=== PATIENT | male | born 1950 | race African-American/Black ===

== ENCOUNTER 2017-06-13 07:34 | Inpatient (IN) ==
[~2017-06-13 07:34] MED LIST: SALINE FLUSH 10ml SYRINGE IVF PRN
[2017-06-13 08:00] VITALS: BMI 22.6
[2017-06-13] MEDS: NS 1,000 ML IV SCH ×4 (09:06→23:42)
[2017-06-13] MEDS ORDERED: HEPARIN 1,000 UNITS/500 ML PREMIX (*CVL ONLY*) IV ONE ×2 (10:45→12:49)
[2017-06-13] MEDS ORDERED: LIDOCAINE 1% (10mg/ml) 30ml SDV INJ ONE (10:45)
[2017-06-13] MEDS ORDERED: FentaNYL 100 MCG/2 ML INJECTION ONE ×2 (12:08→14:03)
[2017-06-13] MEDS ORDERED: MIDAZOLAM 2mg/2ml INJECTION ONE ×2 (12:08→14:23)
[2017-06-13] MEDS ORDERED: HEPARIN 1,000unit/ml INJECTION 10ml ONE (12:09)
[2017-06-13] MEDS ORDERED: Verapamil 5 MG/2 ML VIAL ONE (12:09)
[2017-06-13] MEDS ORDERED: NITROGLYCERIN 50MG INJECTION IV ONE (12:09)
[2017-06-13] MEDS ORDERED: ATROPINE 1 MG/ML INJECTION ONE (12:22)
[2017-06-13] MEDS ORDERED: IOHEXOL 350mg/ml 200ml BOTTLE ONE ×2 (12:25→14:34)
[2017-06-13] MEDS ORDERED: DiphenhydrAMINE 25 MG CAPSULE PO PRN (13:28)
[2017-06-13] MEDS ORDERED: RisperiDONE 0.5 MG TABLET PO PRN (13:28)
[2017-06-13] MEDS ORDERED: IBUPROFEN 200 MG TABLET PO PRN (13:28)
[2017-06-13] MEDS ORDERED: CALCIUM CARBONATE Chewable 500mg TABLET PO PRN (13:28)
[2017-06-13] MEDS ORDERED: LOPERAMIDE 2 MG CAPSULE PO PRN (13:28)
[2017-06-13] MEDS ORDERED: GUAIFENESIN/DM 5ml ORAL LIQUID PO PRN (13:28)
[2017-06-13] MEDS ORDERED: SENNA + DOCUSATE TABLET PO PRN (13:28)
[2017-06-13] MEDS ORDERED: LORazepam 0.5 MG TABLET PO PRN (13:39)
[2017-06-13] MEDS ORDERED: NITROGLYCERIN 0.4 MG SUBLINGUAL TABLET SL PRN (13:39)
[2017-06-13] MEDS ORDERED: SALINE FLUSH 10ml SYRINGE IVF PRN (13:39)
[2017-06-13] MEDS ORDERED: Bisacodyl EC TAB 5 MG TABLET PO PRN (13:39)
[2017-06-13] MEDS ORDERED: ONDANSETRON 4 MG/2 ML INJECTION IVP PRN (13:39)
[2017-06-13] MEDS ORDERED: MAG-AL + SIM ORAL LIQUID 30ml PO PRN (13:39)
[2017-06-13] MEDS ORDERED: ATROPINE 1 MG/ML INJECTION IVP PRN (13:39)
[2017-06-13] MEDS ORDERED: BISACODYL 10 MG SUPPOSITORY RECTALLY PRN (13:39)
[2017-06-13] MEDS ORDERED: METOCLOPRAMIDE 10mg/2ml INJECTION IVP PRN (13:39)
[2017-06-13] MEDS ORDERED: ACETAMINOPHEN 325 MG TABLET PO PRN (13:39)
[2017-06-13] MEDS ORDERED: MORPHINE SULFATE 4 MG SYRINGE IVP PRN ×2 (13:39)
[2017-06-13] MEDS ORDERED: PROMETHAZINE 25 MG INJECTION IVP PRN (13:39)
[2017-06-13] MEDS ORDERED: NS 1,000 ML ONE (13:55)
[2017-06-13] MEDS ORDERED: CLOPIDOGREL 75 MG TABLET ONE (14:03)
--- NOTE | 2017-06-13 16:43 | Cardiology Report ---
DATE OF PROCEDURE 06/13/2017 SURGEON Carmenza Wilson MD PROCEDURE 1. PTCA and stent placement of proximal and mid LAD. 2. Placement of temporary pacemaker via right femoral vein. 3. Conscious sedation for 1-1/2 hours. COMPLICATIONS Transient third degree AV block. Acute closure of the proximal LAD which was successfully recanalized with excellent final results. DESCRIPTION OF PROCEDURE Patient was in the cardiac cath laboratory following the diagnostic procedure performed by Dr. Ankit Wilson. He had a 6-Bur[place]ian sheath in the right femoral artery. A 6-Burundian EBU 3.5 guide was inserted in the left main and multiple attempts initially with the Runthrough then with a whisper, and then with Cartographic Designer wires were unsuccessful to cross the proximal lesion. However, this resulted into acute closure of the proximal lesion. Patient developed transient complete heart block with hypotension that resolved with atropine and intravenous fluid. Subsequent to this episode, we placed a 6-[place] sheath in the right femoral vein and advanced a temporary wire to the right ventricle which had a pacing threshold of less than 1 mV. Subsequently we directed our attention to the LAD and after multiple attempts, we were able to cross the lesion with a whisper wire and then subsequently dilated with a 2.5 and then 3.0 balloon. Proximally was heavily calcified . After multiple dilatations, we advanced a 3.0 x 38 Stu drug-eluting stent to the proximal and mid LAD and was dilated up to 16 atmospheres (4.2 mm) with excellent results. The sheaths and the temporary pacemaker were sutured in place. Patient will have permanent pacemaker implanted as previously scheduled by Dr. Ankit Wilson. RESULTS 1. Proximal LAD had 99% stenosis, mid LD had about 80-90% and both were heavily calcified. After initial failure, we were able to successfully open both vessels with excellent stenting results as noted above. 2. Transient complete heart block with successful insertion of temporary pacemaker to the right ventricle. COMMENT The procedure was quite extensive and complicated as noted above but with excellent final results. KATIANA
[2017-06-13] MEDS ORDERED: D5NS 1,000 ML IV SCH (17:00)
[2017-06-13] MEDS: ATORVASTATIN 40 MG TABLET PO SCH ×2 (21:52→22:32)
[2017-06-13] MEDS ORDERED: HEPARIN 1,000unit/ml INJECTION 10ml IVP ONE (22:00)
[2017-06-13] MEDS: DOCUSATE SODIUM 100 MG CAPSULE PO SCH (22:32)
[2017-06-13] MEDS: GABAPENTIN 300 MG CAPSULE PO SCH (22:32)
--- NOTE | 2017-06-13 22:41 | Cardiology Progress Note ---
Subjective Interval history: he was doing well post intervention No complaints no chest pain dyspnea groin or wrist pain He remains in a stable normal sinus rhythm Exam is within normal limits heart catheterization site in the right wrist and the right groin dry w/o any hematoma or bruising peripheral pulses are intact neurologically intact heart is regular rate and rhythm chest is clear Procedure report Indication preop cardiac clearance normal stress nuclear scan showed anterior wall reversible ischemia PACs required us to do a Holter monitor shows severe sinus bradycardia and junctional rhythm in the 30s up to 3 second pause. Patient is diabetic and schizophrenic very poor historian. Has been having episodes of altered consciousness attributed to narcolepsy. As soon as his guardian consented to the proceeded with the scheduling heart catheter and the pacemaker on outpatient basis. transfemoral heart catheterization by myself around noon, arterial access obtained initially through the right wrist and due to extreme tortuosity of the right subclavian/innominate artery I switched to the the right groin and TR band deployed for hemostasis from te radial ARTERY SITE. Artline in the right femoral artery obtained and left in place, at the end of diagnostic heart cath , in anticipation of PCI by Dr. Dandre Wilson. Patient did have a transient complete heart block proceeded by severe bradycardia in the 20s and a screen on the monitor with one to two to QRS complexes happened while the catheter was in the subclavian artery . as we were getting ready to administer Atropine and perform CPR , we had pt cough and he immediately went back to normal sinus rhythm and stable blood pressure and pulse . pt asymptomatic and alert ,back to his baseline ,w/o cp or dyspnea , EKG w/o ST elevation or depression and with a stable BP . as catheter wouldn't advance down The R subclavian due to extreme tortuousity and wire tracking up R carotid artery , we pulled out the catheter and switch attention to R transfemoral approach ,obtained quickly after local infitration of Lidocaine and heart cath was performed easily without complications. It showed a severe long lesion in the mid LAD without occlusive disease elsewhere the RCA or LCx. LV function was good. Aortic arch was unremarkable.normal anatomy except for tortuosity. pt remained asymptomatic w/o CP or ischemic changes on ekg and stable BP/P rate. additional fentanyl was given for comfort/back pain lying on the table . Plan a PCI by Dr. Dandre Wilson's , case discussed with him and he was in agreement. Permanent pacemaker implant is planned tomorrow it looks like we 'll have to do it on Plavix. as PCI to LAD seems more urgent. Exam Vital signs: Temperature 98.3 F 06/13/17 19:43 Pulse Rate 79 06/13/17 21:45 Respiratory Rate 19 06/13/17 21:45 Blood Pressure 143/89 H 06/13/17 07:56 Pulse Oximetry 97 06/13/17 21:53 Oxygen Delivery Method Room Air Sepsis Assessment - Evaluation Sepsis screening result: No Definite Risk Hospital Course Summary Disclaimer: The visit summary below is not to be considered part of the above Progress Note.
[2017-06-14] MEDS: NS 1,000 ML IV SCH (05:14)
[2017-06-14] MEDS: LEVOTHYROXINE 50 MCG TABLET PO SCH (05:42)
[2017-06-14] MEDS ORDERED: CEFAZOLIN 1 G INJECTION ONE (07:45)
[2017-06-14] MEDS ORDERED: FentaNYL 100 MCG/2 ML INJECTION ONE (07:45)
[2017-06-14] MEDS ORDERED: STERILE WATER FOR INJ 20ML 20 ML ONE (07:45)
[2017-06-14] MEDS ORDERED: LIDOCAINE 1% (10mg/ml) 30ml SDV INJ ONE (07:46)
[2017-06-14] MEDS ORDERED: BACITRACIN 50,000 UNIT INJECTION ONE (07:46)
[2017-06-14] MEDS ORDERED: MIDAZOLAM 2mg/2ml INJECTION ONE (07:46)
[2017-06-14] MEDS ORDERED: SALINE FLUSH 10ml SYRINGE ONE (07:46)
[2017-06-14] MEDS ORDERED: IOHEXOL 350mg/ml 200ml BOTTLE ONE (07:50)
[2017-06-14] MEDS: DOCUSATE SODIUM 100 MG CAPSULE PO SCH ×2 (10:13→20:45)
[2017-06-14] MEDS: FERROUS GLUCONATE 324 MG TABLET PO SCH (10:13)
[2017-06-14] MEDS: MULTI-VITAMIN + MINERAL TABLET PO SCH (10:14)
[2017-06-14] MEDS: VITAMIN B COMPLEX + C TABLET PO SCH (10:14)
[2017-06-14] MEDS: ASPIRIN *EC* 81 MG TABLET PO SCH (10:53)
[2017-06-14] MEDS ORDERED: SALINE FLUSH 10ml SYRINGE IVF PRN (12:18)
[2017-06-14] MEDS: CLOPIDOGREL 75 MG TABLET PO SCH (12:44)
[2017-06-14] MEDS: PALIPERIDONE 3 MG TABLET PO SCH (12:44)
--- NOTE | 2017-06-14 12:57 | XRay Report ---
Indication: post ppm PROCEDURE: XR chest 1V: Encounter: Initial Comparison: None Findings: Left dual lead cardiac pacemaker with right atrial and right ventricular leads. No evidence of lead fracture or discontinuity. No pneumothorax. Lungs are clear. Heart size and mediastinal contours are within normal limits. Chronic rotator cuff tears. Impression: Left cardiac pacemaker without evidence of immediate complication. .
[2017-06-14] MEDS ORDERED: CLOPIDOGREL 75 MG TABLET PO SCH (13:39)
[2017-06-14] MEDS: CEFAZOLIN 1 G in NS 100 ML IV SCH (17:08)
--- NOTE | 2017-06-14 17:12 | Cardiology Progress Note ---
Subjective Interval history: No complaints no chest pain dyspnea groin or wrist or groin pain trop 3 ekg A paced ischemic changes w biphasic T septal leads seen pre and post PPM appetite good alert Exam Vital signs: Temperature 98.7 F 06/14/17 12:00 Pulse Rate 88 06/14/17 16:48 Respiratory Rate 16 06/14/17 15:26 Blood Pressure 107/80 06/14/17 15:00 Pulse Oximetry 99 06/14/17 15:26 Oxygen Delivery Method Room Air - Constitutional no acute distress - Routine HEENT Exam Head: Present: normocephalic, atraumatic Eye: Present: EOMI, PERRL ENT: Present: mucous membranes moist - Routine Neck Exam Absent: JVD, lymphadenopathy, thyromegaly - Routine Respiratory Exam Present: CTA bilaterally - Routine Cardiovascular Exam Present: RRR - Routine Abdominal Exam Present: soft, normoactive bowel sounds, non distended, non tender - Routine Extremities Exam Present: pulses intact. Absent: cyanosis, clubbing, edema - Routine Skin Exam Present: intact, dry. Absent: cyanosis, erythema - Routine Neurological Exam Present: alert, oriented X3, CN II-XII intact, motor deficit - Routine Psychiatric Exam Present: normal affect Progress Note-A&P - Time Spent With Patient Total time spent is greater than 50% in coordination of care (as documented) at patient's floor/unit and/or counseling patient: greater than 35 minutes Sepsis Assessment - Evaluation Sepsis screening result: No Definite Risk Hospital Course Summary Disclaimer: The visit summary below is not to be considered part of the above Progress Note. Hospital Course: 06/14/17 17:12 acute [facility] s/p ELKE to LAD intermttent CHB s/p PPM h/o severe SB and junctional DM2 BG reordered schizophrenia incraese activity trend troponins labs and CXR ekg post PPM now start BB now PPM in place , [facility] inpatient status (last night)
[2017-06-14] MEDS: ATORVASTATIN 40 MG TABLET PO SCH (20:45)
[2017-06-14] MEDS: GABAPENTIN 300 MG CAPSULE PO SCH (20:45)
[2017-06-14] MEDS: HYDROCODONE/APAP 7.5 MG/325 MG TABLET PO PRN (20:46)
[2017-06-15] MEDS: CEFAZOLIN 1 G in NS 100 ML IV SCH ×2 (01:01→09:13)
[2017-06-15] MEDS: HYDROCODONE/APAP 7.5 MG/325 MG TABLET PO PRN (04:36)
[2017-06-15] MEDS: LEVOTHYROXINE 50 MCG TABLET PO SCH (05:51)
[2017-06-15] MEDS ORDERED: LISINOPRIL 2.5 MG TABLET PO SCH (09:00)
[2017-06-15] MEDS: FERROUS GLUCONATE 324 MG TABLET PO SCH (09:06)
[2017-06-15] MEDS: PALIPERIDONE 3 MG TABLET PO SCH (09:08)
[2017-06-15] MEDS: CLOPIDOGREL 75 MG TABLET PO SCH (09:09)
[2017-06-15] MEDS: VITAMIN B COMPLEX + C TABLET PO SCH (09:10)
[2017-06-15] MEDS: MULTI-VITAMIN + MINERAL TABLET PO SCH (09:10)
[2017-06-15] MEDS: ASPIRIN *EC* 81 MG TABLET PO SCH (09:13)
--- NOTE | 2017-06-15 09:47 | Cardiac Catheterization Report ---
DATE 06/13/2017 PROCEDURE PERFORMED Transfemoral left heart catheterization and aortic arch injection LV gram Coronary angiogram Initial transradial approach with a right subclavian arteriogram and right innominate arteriogram (first and second order arteries). INDICATIONS FOR THE PROCEDURE This gentleman with schizophrenia and diabetes presents for preop clearance. He had severe bradycardia, junctional and sinus ayana at 30 beats per minute with history of episodic altered consciousness. In the past, previously diagnosed with narcolepsy. Patient had abnormal EKG, underwent pharmacological stress nuclear scan that showed reversible ischemia in the anterior wall. When we got the permit to proceed with heart catheterization and pacemaker, given by the guardian, we scheduled him for procedure. They seemed to understand the risks and benefits and signed the permit. PREMEDICATION IV Versed and IV fentanyl. NARRATIVE OF PROCEDURE The patient was brought to the cardiac cath laboratory, received IV sedation with Versed and fentanyl. The right wrist was prepped and draped in the usual sterile fashion as well as subsequently the right groin when needed. I went ahead and injected lidocaine 1% 1.5 mL in the right wrist and subsequently an additional 15-18 mL were administered in the right groin, obtaining access at a later stage of this procedure. I inserted a 6-[place] arterial sheath, Slender, in the right radial artery and sidearm was aspirated and flushed and injected with intraarterial drug combo including 5 mg of Verapamil, 300 mcg of nitroglycerin, and 3000 units of heparin. I proceeded with a [place] catheter that advanced over the wire without difficulty and reached the subclavian artery , then the wire started going up towards the carotid artery, so after multiple attempts, I pulled the catheter back slightly and injected an arteriogram that showed normal anatomy but extreme tortuosity. I was able now with this guidance to advance the catheter a little bit more distally but it stopped in the innominate artery where another arteriogram was performed. I tried now using a BBJ long wire to advance without much success although the wire appeared to advance towards the aortic arch, the catheter would not follow the tortuosity so at that point, we decided to abort the radial access and go femoral. As the catheter was in the subclavian artery, the patient suddenly went into complete heart block preceded by severe sinus bradycardia in the 20s and then there were one or two QRS complexes only on the entire screen. As we were getting ready to do CPR and ordered atropine and have epinephrine ready, the patient spontaneously bounced out of complete heart block into sinus rhythm. The patient was asked to cough. He was quite alert and appropriate, with stable vital signs now. I went ahead and under sterile technique, accessed the right common femoral artery using modified Seldinger percutaneous technique a 6-[place]ican arterial sheath was introduced in place and I then used the JR4 catheter (which was previously used for transradial access) and pigtail catheter. I also pulled the catheter back and performed an aortic arch injection to identify the anatomy. Procedure was well tolerated and there were no immediate complications. FINDINGS 1. HEMODYNAMICS: LV EDP was normal without any subvalvular or transvalvular pressure gradient present. 2. Due to borderline blood pressure, fluid bolus was administered. 3. Normal LV systolic function. Normal wall motion. 4. CORONARY ANGIOGRAM: Left main coronary artery is large and normal. The LAD is a large vessel that has very severe occlusion. The LAD exhibits a long severe stenosis up to 90-95% predominantly in the mid LAD which appears calcified. Diagonal branches are small. Left circumflex artery is a very large and nondominant vessel. It gives origin to multiple obtuse marginal branches. It appears free from any occlusive disease. The right coronary artery exhibits different areas of mild plaquing proximally and the mid as well as some mild involvement of the ostium. All areas appear mild. The mid RCA stenosis is estimated about 50% (incomplete opacification of the vessel due to semi-selective placement of the catheter). 5. Mild catheter-induced mitral regurgitation is present. 6. AORTIC ARCH INJECTION. Aortic arch in injection showed normal great three vessel take-off, normal aortic arch without aneurysm or dissection. No significant stenosis in the proximal great vessels was seen, although tortuosity was present. Right common femoral artery shows normal anatomy. Right innominate and right subclavian arteriogram show no occlusive disease. Normal branches including the vertebral and the common carotid artery on the right side were faintly visualized. IMPRESSION 1. Coronary artery disease as manifested by a 90-95% occlusion of mid LAD, about 50% stenosis of the mid RCA. 2. Normal LV systolic function. 3. Normal aortic arch with a tortuous proximal great vessels especially the innominate artery. 4. Unremarkable hemodynamics. 5. Unremarkable right subclavian and innominate arteriogram. 6. Patient had a transient complete heart block with severe brdaycardia. 7. Intravenous heparin and Plavix 600 mg p.o. for intervention by Dr. Xiomara Wilson. See separate report. 8. Patient remained stable, asymptomatic, hemodynamically and electrically stable ,PCI is under way. KATIANA
[2017-06-15 10:55] VITALS: BP 119/77
[2017-06-15] MEDS: DOCUSATE SODIUM 100 MG CAPSULE PO SCH (11:38)
--- NOTE | 2017-06-15 11:58 | XRay Report ---
INDICATION: post ppm PROCEDURE: CHEST 2-VIEWS UPRIGHT (PA & LAT) Encounter: Initial COMPARISON: June 14, 2017 Findings: Left pacemaker is unchanged in appearance. The lungs are stable in appearance without new focal airspace consolidation. There is no pleural effusion or pneumothorax. The heart size, pulmonary vascularity and mediastinal contours are unchanged. IMPRESSION: Stable appearance of the left pacemaker. .
--- NOTE | 2017-06-15 12:02 | Discharge Instructions ---
Discharge Plan - Med Rec/Dispo Referrals/Follow Up: Rose Dinero MD [Family Provider] - 1 Week Bess [place] [facility] [place] Additional Instructions: DR Rea dao in 2 wks acute TX package post pacemaker teaching and instructions Prescriptions: New Atorvastatin [Lipitor] 40 mg PO HS #30 tablet Clopidogrel [Plavix] 75 mg PO DAILY #30 tablet Lisinopril [Prinivil] 2.5 mg PO DAILY #30 tablet Minocycline [Minocin] 100 mg PO ACBID #14 capsule Acetaminophen [Tylenol] 650 mg PO Q5H PRN #20 tablet PRN Reason: Pain Aspirin *EC* [Ecotrin] 81 mg PO DAILY #100 tablet Nitroglycerin [Nitrostat] 0.4 mg SL Q5MIN3 PRN #25 tablet PRN Reason: Angina Metoprolol Tartrate [Lopressor] 25 mg PO BIDWM #60 tablet Continue Vitamin B Complex 1 cap PO DAILY #0 Risperidone (Risperdal) 0.5 mg PO Q4H PRN #0 PRN Reason: ANXIETY/AGITATION Docusate Sodium [Dok] 100 mg PO BID #0 Gabapentin 300 mg PO BID #0 Loxapine Succinate [Loxapine] 5 mg PO BID #0 diphenhydrAMINE HCl [Diphenhydramine HCl] 25 mg PO Q4H PRN #0 PRN Reason: ALLERY SYMPTOMS Guaifenesin/Dextromethorphan [Tussin Dm Liquid] 10 ml PO Q4H PRN #0 PRN Reason: COUGH Gabapentin 300 mg PO HS Ferrous Sulfate (Slow Fe) 160 mg PO DAILY #0 Paliperidone [Invega] 9 mg PO DAILY #0 Levothyroxine Sodium 50 mcg PO DAILY #0 Metformin HCl 500 mg PO DAILY #0 Multivitamin [Tab-A-Claire] 1 tab PO DAILY #0 Loperamide [Imodium] 2 - 4 mg PO PRN PRN #0 PRN Reason: DIARRHEA Calcium Carbonate 1,000 mg PO Q4H PRN #0 PRN Reason: HEARTBURN Sennosides/Docusate Sodium [Sm Senna-S Tablet] 2 tab PO BID PRN #0 PRN Reason: CONSTIPATION Magnesium Hydroxide [Milk of Magnesia] 30 ml PO DAILY PRN #0 PRN Reason: CONSTIPATION carbidopa 25 mg-levodopa 100 mg tablet 1 tab PO QID tab Discontinued Triamterene/Hydrochlorothiazid [Triamterene-Hctz 37.5-25 mg Tb] 0.5 tab PO DAILY #0 Ibuprofen 2 tab PO Q4H PRN #0 PRN Reason: PAIN Mobic (Meloxicam) 15 mg tablet 15 mg PO DAILY tab - Disposition 86 Home Health Service - Attestation Attestation Narrative: 06/15/17 12:14 [facility] with social work consult/case investigator
[2017-06-15] MEDS ORDERED: MINOCYCLINE 100 MG CAPSULE PO SCH (12:30)
[2017-06-15 14:38] VITALS: PULSE 75; RESP 26; TEMP 97.2; O2SAT 94
[2017-06-16] MEDS ORDERED: METFORMIN 500 MG TABLET PO SCH (08:00)
--- NOTE | 2017-06-16 12:58 | Discharge Summary ---
HISTORY Mr. Werner is a 66-year-old complex gentleman with history of diabetes mellitus and schizophrenia. He initially presented for preop evaluation and had an abnormal EKG and underwent stress nuclear scan which showed reversible ischemia in the anterior wall, normal LV function. He had PACs on his EKG so he underwent 24-hour Holter monitor which showed severe bradycardia, 30 beats per minute, with intermittent junctional rhythm and pauses up to 3 seconds during awake hours. Permit from legal guardian was obtained through [facility] where the patient is a resident and he presented for outpatient heart catheterization on 06/13/2017. This showed severe occlusion of the mid LAD, 90%-95%, with normal LV function. The diagnostic heart catheterization was followed by percutaneous coronary intervention by Dr. Mary Wilson after the case was discussed with him. The patient received IV heparin and p.o. Plavix. As a wire was being advanced down the LAD the patient had a transient total occlusion of the LAD associated with tachycardia and ST depression on the monitor. Flow was quickly reestablished as the wire passed the stenosis and a stent was successfully placed. The patient did have a transient complete heart block so a transfemoral transvenous temporary pacemaker was placed. The patient was taken back to CCU in stable condition. I saw him several times and he was not having any complaint of angina or dyspnea. He remained electrically and hemodynamically stable and remained on bed rest with both arterial and venous lines in place overnight. Consent was obtained for a permanent pacemaker implantation, dual chamber, which took place on 06/14/2017. A peak troponin obtained was just over 3 and was trending down and patient's EKG showed biphasic T-wave in septal lead. The patient was recovering well and was not having any angina or dyspnea and dual-chamber permanent pacemaker was performed without any complications. The patient was observed in CCU. By this time he was made inpatient. Again, on laboratory obtained the following morning the patient remained clinically, electrically and hemodynamically stable. He was ambulatory with assistance. His radial and femoral heart catheterization sites looked excellent. His pacemaker site looked excellent. No drainage or redness. Peripheral pulses were normal. The rest of the examination was unremarkable. PHYSICAL EXAM VITAL SIGNS: Vital signs were stable. Blood pressure 1-teens/60s on acute NC medications. HEART: Regular rate and rhythm. Chest is clear. No JVD. ABDOMEN: Soft, nontender, nondistended. Normoactive bowel sounds. EXTREMITIES: Lower extremities without pitting edema. Peripheral pulses are intact. NEUROLOGIC: Affect is abnormal with poor eye contact and flat affect but this is baseline for this patient. As a matter of fact, he is more interactive than he was when initially seen in the office. On the following day, 06/15/2017, pacemaker electronic parameters were normal. EKG showed atrial-paced rhythm. There was a recorded episode of atrial fibrillation with a heart rate in the 1-teens noted on 06/14/2017 on pacemaker interrogation that spontaneously resolved. The patient was just started on beta blockers and he was already on dual antiplatelet therapy. The risk of adding anticoagulant therapy outweighs the benefit and we are going to simply see if the atrial fibrillation is going to recur in the future to revisit this strategy. Again, chest x-ray showed normal dual-chamber pacemaker position. Although the patient seemed to have pulled back slightly on the pacemaker slack there were no pacemaker-related complications. Laboratory was all stable with only a slight drop of hemoglobin in the range of 1 gram. Chemistries were fine. His Metformin was to be restarted. Accu-Cheks have been checked in the hospital. The patient was ambulatory at time of discharge and at baseline. Discussed with Case Management to ensure adequate support when he goes to [facility] with home healthcare, etc. PROCEDURES PERFORMED 1. Transradial and transfemoral heart catheterization, coronary angiogram on followed by percutaneous coronary intervention with stent placement to the LAD (first procedure, Dr. Molina Wilson. Second procedure by Dr. Xiomara Wilson). Stent placement was complicated by transient total occlusion of the LAD which was quickly wired lesion across with successful stent placement. LV function is normal. 2. Dual-chamber permanent pacemaker implant 06/14/2017, [employer] type, by Dr. Molina Wilson, for both irreversible symptomatic SA node dysfunction as well as intermittent complete heart block, severe bradycardia. FINAL DIAGNOSES 1. Acute non-ST elevation NC (very limited with peak troponin of 3). 2. Bradycardia. 3. Intermittent complete heart block. 4. Type 2 diabetes mellitus. 5. Schizophrenia. DISCHARGE MEDICATIONS Please refer to electronic medication reconciliation form for a complete medication list. It should be noted that the patient will be on lifelong aspirin , at least one year of Plavix 75 mg daily, Lipitor, metoprolol 25 mg b.i.d., lisinopril 2.5 mg daily (with monitoring of blood pressure recommended), a seven -day course of minocycline and Tylenol p.r.n., in addition to his usual home medications including Metformin (which was restarted). DISCHARGE INSTRUCTIONS 1. Post transradial and transfemoral heart catheterization restrictions were provided as in EMR. 2. Post permanent pacemaker care and restriction/infection was provided (see electronic discharge summary). 3. Follow up with Dr. Rose Dinero in one week. 4. Follow up with Dr. Molina Wilson in two weeks. [facility]
== END 2017-06-15 15:15 | disposition home or self-care (01) | DRG 243 ==
LOC: CATH 07:34 → SRG 07:35 → CCU 16:10
PROVIDERS: ADMIT Internal Medicine Cardiovascular Disease; ATTEND Internal Medicine Cardiovascular Disease

== ENCOUNTER 2017-09-10 08:49 | Inpatient (IN) ==
[2017-09-10] MEDS ORDERED: ASPIRIN 81 MG CHEWABLE TABLET PO ONE (09:11)
[2017-09-10] MEDS ORDERED: NITROGLYCERIN 0.4 MG SUBLINGUAL TABLET SL PRN (09:11)
--- NOTE | 2017-09-10 09:35 | CT Scan Report ---
EXAM: CT head/brain wo con 0926 hours COMPARISON: 08/20/2009. HISTORY: ms changes LOCATION OF DICTATION: [facility] – [place] TECHNIQUE: Without IV contrast, axial images were obtained through the brain and reviewed in brain, soft tissue, bone, and subdural windows. The current CT scan was performed using radiation dose-reduction techniques. FINDINGS: The CSF spaces are prominent likely related to atrophy in keeping with age. Periventricular deep white matter hypodensities are noted likely related to small vessel ischemic disease. The suprasellar cistern and quadrigeminal plate cisterns are intact. The head-white junctions are distinct. No sulcal effacement is identified. The basal ganglia, posterior fossa and brainstem region appear unremarkable. There is no evidence for midline shift or mass effect. The midline structures appear unremarkable. No osseous abnormalities are identified. The paranasal sinuses and mastoid air cells are clear. IMPRESSION: 1. Atrophy in keeping with age. 2. Periventricular deep white matter hypodensities are noted likely related to small vessel ischemic disease. Note: This report was generated soon after the exam was performed and is immediately available to the ordering clinician on 09/10/2017 9:31 AM. .
--- NOTE | 2017-09-10 10:03 | Emergency Department Report ---
General Adult HPI - General Chief complaint: Medical Emergency Stated complaint: unresponsive Time Seen by Provider: 09/10/17 09:11 - History of Present Illness HPI narrative: 66-year-old gentleman brought in by EMS with hypotension. Patient was found at [facility], where he is a resident. He had done his normal chores and eaten breakfast this morning. Behaving normally at that time. Then was found sitting in a chair slumped over. The pressure on left arm was 60 systolic, blood pressure on right arm was closer to 100 systolic. Pulse did not rise, but stayed in the 60s. His O2 sats were down to 70%. He initially was nonresponsive. He rapidly improved vitals and response as EMS arrived. IV fluids were started and blood pressure continued to rise to an appropriate level. He was somnolent and lethargic, but would answer questions. Staff member that is with him states that he is schizophrenic and will cycle and had behavior like this periodically, but no changes in vitals or actual mentation. No known head injury. No known infection. - Related Data Home Medications Medication Instructions Recorded Confirmed Vitamin B Complex 1 cap PO DAILY #0 03/09/12 09/10/17 Docusate Sodium [Dok] 100 mg PO BID #0 10/31/16 09/10/17 Gabapentin 300 mg PO BIDBL #0 10/31/16 09/10/17 Guaifenesin/Dextromethorphan 10 ml PO Q4H PRN #0 10/31/16 09/10/17 [Tussin Dm Liquid] Levothyroxine Sodium 50 mcg PO DAILY #0 10/31/16 09/10/17 Loperamide [Imodium] 2 mg PO QID PRN #0 10/31/16 09/10/17 Loxapine Succinate [Loxapine] 5 mg PO BID #0 10/31/16 09/10/17 Magnesium Hydroxide [Milk of 30 ml PO DAILY PRN #0 10/31/16 09/10/17 Magnesia] Metformin HCl 500 mg PO DAILY #0 10/31/16 09/10/17 Multivitamin [Tab-A-Claire] 1 tab PO DAILY #0 10/31/16 09/10/17 Paliperidone [Invega] 9 mg PO 1800 #0 10/31/16 09/10/17 Sennosides/Docusate Sodium [Sm 2 tab PO BID PRN #0 10/31/16 09/10/17 Senna-S Tablet] diphenhydrAMINE HCl 25 mg PO Q4H PRN #0 10/31/16 09/10/17 [Diphenhydramine HCl] Gabapentin 600 mg PO HS 06/13/17 09/10/17 Acetaminophen [Acetaminophen Extra 1,000 mg PO Q4H PRN 09/10/17 09/10/17 Strength] Acetaminophen [Acetaminophen Extra 1,000 mg PO TID 09/10/17 09/10/17 Strength] Calcium Carbonate [Calcium] 1,000 mg PO Q4H PRN 09/10/17 09/10/17 Carbidopa/Levodopa 1 tab PO QID/E 09/10/17 09/10/17 [Carbidopa-Levodopa 25-100 Tab] Ferrous Sulfate, Dried [Slow 160 mg PO DAILY 09/10/17 09/10/17 Release Iron] Ibuprofen 400 mg PO Q4H PRN 09/10/17 09/10/17 Mag Hydrox/Aluminum Hyd/Simeth 20 ml PO Q4H PRN 09/10/17 09/10/17 [Maalox Advanced Suspension] Meloxicam [Meloxicam] 15 mg PO DAILY 09/10/17 09/10/17 Pseudoephedrine [Sudafed] 30 mg PO BID PRN 09/10/17 09/10/17 RisperiDONE [RisperDAL] 0.5 mg PO Q4H PRN 09/10/17 09/10/17 Triamterene/Hctz 37.5/25 Tab 0.5 tab PO DAILY 09/10/17 09/10/17 [MAXZIDE-25 eqv] Previous Rx's Medication Instructions Recorded Aspirin *EC* [Ecotrin] 81 mg PO DAILY #100 tab 06/15/17 Atorvastatin [Lipitor] 40 mg PO HS #30 tab 06/15/17 Clopidogrel [Plavix] 75 mg PO DAILY #30 tab 06/15/17 Metoprolol Tartrate [Lopressor] 25 mg PO BIDWM #60 tab 06/15/17 Nitroglycerin [Nitrostat] 0.4 mg SL Q5MIN3 PRN #25 tab 06/15/17 Allergies Allergy/AdvReac Type Severity Reaction Status Date / Time No Known Allergies Allergy Verified 11/20/17 09:42 Review of Systems All systems: reviewed and negative except as stated PFSH Patient Stated Medical History Cataracts Yes Other HEENT Myopia Myocardial Infarction Yes: during pacemaker insertion Other Cardiology Yes: hyperlipidemia Diabetes Mellitus Type 1 No Diabetes Mellitus Type 2 Yes: NON-INSULIN DEPENDENT Hx Benign Prostatic Yes Hyperplasia Other Yes: OVERACTIVE BLADDER Osteoarthritis Yes Other Musculoskeletal Yes: DEGENERATIVE JOINT DISEASE Schizophrenia Yes Clinic Medical History (Last Reviewed 05/07/17 @ 10:15 by Carmina Santiago Dandre) Dementia (Chronic Medical) Diabetes (Chronic Medical) Hyperlipidemia (Chronic Medical) Schizophrenia (Chronic Medical) Tremors of nervous system (Chronic Medical) Surgical History: 1. Right knee arthroscopy and meniscectomy: 11/02/1997. 2. Cystoscopy uretheral dilation: 03/11/2002. 3. Colonoscopy: 07/28/2004 - Social History Smoking status: Never smoker Substance use type: does not use Physical Exam - Limitations Limitations: altered mental status - General General appearance: obtunded - Normal Exams: Head:: Normocephalic without trauma Cardiovascular:: Regular rate and rhythm, without murmur or gallop, Pulses 2+ all extremities, capillary refill, <2 seconds all extremities Abdomen:: Bowel sounds positive, soft, non-tender, non-distended, no hepatosplenomegaly, masses or bruits noted Musculoskeletal:: No tenderness, or deformity noted, good range of motion, all extremities Integumentary:: No rashes, hives, or bruising noted, hair and nails, without abnormality - Respiratory Respiratory exam: Present: other (mild crackles noted upper airways, but not into lower lung drake.) - Cardiovascular Cardiovascular exam: Present: regular rate, normal rhythm Course Vital Signs Temperature 97.6 F 09/10/17 08:50 Pulse Rate 74 09/10/17 08:50 Respiratory Rate 20 09/10/17 08:50 Blood Pressure 133/76 09/10/17 08:50 Pulse Oximetry 96 09/10/17 08:50 Temperature 97.6 F 09/10/17 08:50 Pulse Rate 67 09/10/17 09:57 Respiratory Rate 18 09/10/17 09:44 Blood Pressure 138/86 09/10/17 09:44 Pulse Oximetry 96 09/10/17 09:44 Disposition Prescriptions: No Action Vitamin B Complex 1 cap PO DAILY #0 Docusate Sodium [Dok] 100 mg PO BID #0 Gabapentin 300 mg PO BIDBL #0 Loxapine Succinate [Loxapine] 5 mg PO BID #0 diphenhydrAMINE HCl [Diphenhydramine HCl] 25 mg PO Q4H PRN #0 PRN Reason: ALLERY SYMPTOMS Guaifenesin/Dextromethorphan [Tussin Dm Liquid] 10 ml PO Q4H PRN #0 PRN Reason: COUGH Gabapentin 600 mg PO HS Atorvastatin [Lipitor] 40 mg PO HS #30 tab Clopidogrel [Plavix] 75 mg PO DAILY #30 tab Aspirin *EC* [Ecotrin] 81 mg PO DAILY #100 tab Nitroglycerin [Nitrostat] 0.4 mg SL Q5MIN3 PRN #25 tab PRN Reason: Angina RisperiDONE [RisperDAL] 0.5 mg PO Q4H PRN PRN Reason: Anxiety/Agitation Acetaminophen [Acetaminophen Extra Strength] 1,000 mg PO Q4H PRN PRN Reason: Pain Calcium Carbonate [Calcium] 1,000 mg PO Q4H PRN PRN Reason: Heartburn Triamterene/Hctz 37.5/25 Tab [MAXZIDE-25 eqv] 0.5 tab PO DAILY Ferrous Sulfate, Dried [Slow Release Iron] 160 mg PO DAILY Acetaminophen [Acetaminophen Extra Strength] 1,000 mg PO TID Carbidopa/Levodopa [Carbidopa-Levodopa 25-100 Tab] 1 tab PO QID/E Paliperidone [Invega] 9 mg PO 1800 #0 Levothyroxine Sodium 50 mcg PO DAILY #0 Metformin HCl 500 mg PO DAILY #0 Multivitamin [Tab-A-Claire] 1 tab PO DAILY #0 Loperamide [Imodium] 2 mg PO QID PRN #0 PRN Reason: DIARRHEA Sennosides/Docusate Sodium [Sm Senna-S Tablet] 2 tab PO BID PRN #0 PRN Reason: CONSTIPATION Magnesium Hydroxide [Milk of Magnesia] 30 ml PO DAILY PRN #0 PRN Reason: CONSTIPATION Metoprolol Tartrate [Lopressor] 25 mg PO BIDWM #60 tab Mag Hydrox/Aluminum Hyd/Simeth [Maalox Advanced Suspension] 20 ml PO Q4H PRN PRN Reason: Heartburn Ibuprofen 400 mg PO Q4H PRN PRN Reason: Pain Meloxicam [Meloxicam] 15 mg PO DAILY Pseudoephedrine [Sudafed] 30 mg PO BID PRN PRN Reason: Nasal Congestion Referrals: Rose Dinero MD [Family Provider] -
--- NOTE | 2017-09-10 10:15 | XRay Report ---
EXAM: XR chest 2V 0933 hours COMPARISON: 06/15/2017. 06/14/2017. 08/20/2009. HISTORY: confusion . FINDINGS:Pacemaker and pacer wires are in place and are stable. The heart is upper limits of normal to mildly enlarged. The pulmonary vascularity appears unremarkable. Linear opacities are seen at the lung bases likely reflecting atelectasis particularly on the left. The lungs are otherwise clear. There is no evidence for pleural effusion. There is no evidence for a pneumothorax. The right humeral head is high riding which may be related to chronic rotator cuff tear. An old fracture deformity through the surgical neck of the proximal right humerus may be present as well. IMPRESSION: 1. Left basilar atelectatic changes. 2. The heart is upper limits of normal to mildly enlarged. LOCATION OF DICTATION: [facility] [place] .
--- OUTSIDE RECORDS SUMMARY | 2017-09-10 10:54 | External Medical Summary | Referral Summary ---
:1950 Author Care Team Providers Name Role Phone Julio Cesar Blue Primary Care Physician Encounter VC Date(s): 02/04/15 - 02/04/15 [facility], [place], [address] [place] [phone]- Discharge Diagnosis: Screening for thyroid disorder Discharge Diagnosis: Diabetes mellitus without mention of complication, type II or unspecified type,not stated as uncontrolled Discharge Disposition: Home or Self Care Attending Physician: Julio Cesar Blue MD Admitting Physician: Julio Cesar Blue MD Vital Signs Most recent to oldest [Reference Range]: 1 Peripheral Pulse Rate [60-100 bpm] 80 bpm (02/04/15 10:24 AM) Blood Pressure [90-140/60-90 mmHg] 98/64 mmHg (02/04/15 10:24 AM) Problem List Condition Effective Dates Status Health Status Informant History of Overactive bladder,urinary Active frequency, and BPH w/prostatism(Confirmed) [place] toxicity(Confirmed) Active Combined hyperlipidemia(Confirmed) Active Pancytopenia related to Active medication(Confirmed) Schizophrenia(Confirmed) Active Controlled type 2 diabetes mellitus Active without complication(Confirmed) Allergies, Adverse Reactions, Alerts No Known Allergies Medications acetaminophen 500 mg oral tablet 2 tabs, Oral, q4hr, as needed for pain, # 60 tabs, 0 Refill(s) Start Date: 05/21/14 Status: OrderedCONTOUR TEST STRIPS See Instructions, TEST FASTING AND 2 HOURS AFTER SUPPER ON SUNDAY AND SUNDAY., # 100 strip, 1 Refill(s), eRx: [facility] #[id number], TEST FASTING AND 2 HOURS AFTER SUPPER ON SUNDAY AND SUNDAY. Special Instructions: TEST FASTING AND 2 HOURS AFTER SUPPER ON SUNDAY AND SUNDAY. Start Date: 10/14/14 Status: OrdereddiphenhydrAMINE 25 mg oral capsule 1 caps, Oral, q4hr, as needed for rhinitis,non-prod cough, or allergy symptoms, 0 Refill(s) Start Date: 05/21/14 Status: OrderedDOK 100 mg oral capsule 1 caps, Oral, BID, as needed for constipation, # 20 caps, 0 Refill(s) Start Date: 05/21/14 Status: OrderedFish Oil 1000 mg oral capsule 2 caps, Oral, BID, # 60 caps, 0 Refill(s) Start Date: 05/21/14 Status: Orderedibuprofen 200 mg oral tablet 2 tabs, Oral, q4hr, as needed for pain, # 120 tabs, 0 Refill(s) Start Date: 05/21/14 Status: OrderedImodium A-D 2 mg oral tablet See Instructions, as needed for loose stool, 2 tablets by mouth after first loose stool and 1 tabletafter each subsequent loose stool up to 4 per day, 0 Refill(s) Special Instructions: 2 tablets by mouth after first loose stool and 1 tablet after each subsequent loose stool up to 4 per day Start Date: 05/21/14 Status: OrderedInvega 3 mg oral tablet, extended release 3 tabs, Oral, qAM, # 30 tabs, 0 Refill(s) Start Date: 08/03/14 Status: Orderedlevothyroxine 50 mcg (0.05 mg) oral tablet 1 tabs, Oral, Daily, # 30 tabs, 0 Refill(s) Start Date: 05/21/14 Status: Orderedloxapine 10 mg oral capsule 1 caps, Oral, BID, # 180 caps, 0 Refill(s) Start Date: 02/04/15 Status: OrderedMaalox Antacid Barrier 500 mg oral tablet, chewable 2 tabs, Chewed, q4hr, 0 Refill(s) Start Date: 05/21/14 Status: OrderedmetFORMIN 500 mg oral tablet 1 tabs, Oral, Daily, # 30 tabs, 2 Refill(s), 1 tabs Oral Daily Start Date: 12/02/14 Status: OrderedMobic 15 mg oral tablet 1 tabs, Oral, Daily, # 30 tabs, 0 Refill(s), other reason (Rx) Start Date: 08/25/14 Status: Orderedoxybutynin 5 mg oral tablet 1 tabs, Oral, TID, # 30 tabs, 0 Refill(s) Start Date: 05/21/14 Status: OrderedRisperDAL 0.5 mg oral tablet 1 tabs, Oral, q4hr, as needed for agitation, Dr. Eduard Noriega, 0 Refill(s) Special Instructions: Dr. Eduard Noriega Start Date: 05/21/14 Status: OrderedSennalax-S 50 mg-8.6 mg oral tablet 2 tabs, Oral, Bedtime (once a day), # 30 tabs, 0 Refill(s) Start Date: 05/21/14 Status: Orderedsimvastatin 20 mg oral tablet 1 tabs, Oral, Bedtime (once a day), # 30 tabs, 0 Refill(s) Start Date: 05/21/14 Status: OrderedSlow Release Iron 160 mg (50 mg elemental iron) oral tablet, extended release 1 tabs, Oral, Daily, # 30 tabs, 0 Refill(s) Start Date: 05/21/14 Status: OrderedSudoGest 30 mg oral tablet 1 tabs, Oral, BID, 0 Refill(s) Start Date: 05/21/14 Status: PwlroszFqa-R-Wyvm tabs, Oral, Daily, 0 Refill(s) Start Date: 05/21/14 Status: Orderedtriamterene-hydrochlorothiazide 75 mg-50 mg oral tablet 0.5 tabs, Oral, Daily, as needed, # 30 tabs, 0 Refill(s) Special Instructions: as needed Start Date: 05/21/14 Status: OrderedTusslin oral liquid 2 mL, Oral, q8hr, 0 Refill(s) Start Date: 05/21/14 Status: OrderedVitamin B Complex 100 0 Refill(s) Start Date: 05/21/14 Status: Ordered Results Hematology Most recent to oldest [Reference Range]: 1 WBC [4.8-10.8 K/uL] 3.6 K/uL *LOW* (02/04/15 11:15 AM) RBC [4.60-6.20 M/uL] 4.37 M/uL *LOW* (02/04/15 11:15 AM) Hgb [14.0-18.0 gm/dL] 12.1 gm/dL *LOW* (4/16/15 11:15 AM) Hct [42.0-52.0 %] 36.3 % *LOW* (02/04/15 AM) MCV [82.0-99.0 fL] 83.1 fL (02/04/15 AM) MCH [27.0-32.0 pg] 27.7 pg (02/04/15 AM) MCHC [32.0-36.0 gm/dL] 33.3 gm/dL (02/04/15 AM) RDW [11.5-14.5 %] 13.9 % (02/04/15 AM) Platelet [150-400 K/uL] 276 K/uL (02/04/15 AM) MPV [8.8-14.8 fL] 9.5 fL (02/04/15 AM) Immature Granulocytes [0.0-1.0 %] 0.0 % (02/04/15) Neutrophils [51-75 %] 42 % *LOW* (02/04/15 AM) Lymphocytes [20-46 %] 38 % (02/04/1515 AM) Monocytes [4-11 %] 14 % *HI* (02/04/15 AM) Eosinophils [0-4 %] 4 % (02/04/15 AM) Basophils [0-2 %] 1 % (02/04/15 AM) Neutro Absolute [1.90-7.00 THOUS] 1.52 THOUS *LOW* (02/04/15 AM) Lymph Absolute [0.80-3.30 THOUS] 1.38 THOUS (02/04/15:15 AM) Potter Absolute [0.30-1.00 THOUS] 0.52 THOUS (02/04/15:15 AM) Eos Absolute [0.00-0.50 THOUS] 0.15 THOUS (02/04/15:15 AM) Baso Absolute [0.00-0.20 THOUS] 0.03 THOUS (02/04/15:15 AM) Chemistry Most recent to oldest [Reference Range]: 1 Sodium Lvl [135-144 mEq/L] 138 mEq/L (02/04/15:15 AM) Potassium Lvl [3.5-5.2 mEq/L] 4.6 mEq/L (02/04/1515 AM) Chloride [99-111 mEq/L] 106 mEq/L (02/04/1515 AM) CO2 [23-31 mEq/L] 23 mEq/L (02/04/1515 AM) AGAP [3-20] 9 (02/04/15 AM) BUN [8-26 mg/dL] 22 mg/dL (02/04/1515 AM) Glucose Lvl [70-99 mg/dL] 74 mg/dL (02/04/15 AM) Creatinine Lvl [0.72-1.25 mg/dL] 0.73 mg/dL (02/04/15 AM) eGFR [>60 mL/min] >60 mL/min 1 (02/04/15 AM) Calcium Lvl [8.9-10.5 mg/dL] 10.0 mg/dL (02/04/15 AM) Albumin Lvl [3.4-4.8 gm/dL] 4.3 gm/dL (02/04/15 AM) Total Protein [6.2-8.1 gm/dL] 7.4 gm/dL (02/04/1515 AM) Globulin [1.8-4.0 gm/dL] 3.1 gm/dL (02/04/15 AM) ALT [0-55 unit/L] 21 unit/L (02/04/15 AM) AST [5-34 unit/L] 18 unit/L (02/04/1515 AM) Alk Phos [40-150 unit/L] 121 unit/L (02/04/15:15 AM) Bili Total [0.2-1.2 mg/dL] 0.5 mg/dL (02/04/15:15 AM) TSH with Reflex Free T4 [0.35-4.94] 0.77 (02/04/15 11:15 AM) 1Result Comment: Multiply eGFR results by 1.21 for race.Urinalysis Most recent to oldest [Reference Range]: 1 UA Color Yellow (02/04/15 11:50 AM) UA Appear Clear (02/04/15 11:50 AM) UA pH [5.0-8.0] 6.5 (02/04/15 11:50 AM) UA Leuk Est [Negative] Negative (02/04/15 11:50 AM) UA Nitrite [Negative] Negative (02/04/15 11:50 AM) UA Protein [Negative] Negative (02/04/15 11:50 AM) UA Glucose [Negative] Negative (02/04/15 11:50 AM) UA Ketones [Negative] Negative (02/04/15 11:50 AM) UA Urobilinogen 1.0 mg/dL (02/04/15 11:50 AM) UA Bili [Negative] Negative (02/04/15 11:50 AM) UA Blood Negative (02/04/15 11:50 AM) UA Spec Grav [1.003-1.030] 1.015 (02/04/15 11:50 AM) Type Clean Catch (02/04/15 11:50 AM) Immunizations Vaccine Date Refusal Reason tetanus/diphth/pertuss (Tdap) adult/adol 03/26/08 influenza virus vaccine, inactivated 08/19/14 influenza virus vaccine, live 08/26/13 tetanus-diphth toxoids (Td) adult/adol 01/18/00 Procedures Procedure Date Related Diagnosis Body Site Prostate specific antigen 12/06/11 Prostate specific antigen 11/18/09 Prostate specific antigen 08/18/09 Prostate specific antigen 11/12/08 Prostate specific antigen 05/14/08 Prostate specific antigen 12/31/06 Prostate specific antigen 08/22/06 Prostate specific antigen 07/12/06 Prostate specific antigen 09/11/05 Social History Social History Type Response Smoking Status Never smoker Assessment and Plan No data available for this section
--- OUTSIDE RECORDS SUMMARY | 2017-09-10 10:56 | External Medical Summary | Referral Summary ---
:1950 Author Organization [facility] Address [address] [place] [address] [place] [address] Care Team Providers Name Role Phone Julio Cesar Blue Primary Care Physician Encounter VC Date(s): 08/12/15 - 08/12/15 [facility] [place] [address] [place] [phone] [place] Discharge Disposition: 01-Home or Self Care Attending Physician: Julio Cesar Blue MD Admitting Physician: Julio Cesar Blue MD Vital Signs No data available for this section Problem List Condition Effective Dates Status Health Status Informant History of Overactive bladder,urinary Active frequency, and BPH w/prostatism(Confirmed) Schizophrenia(Confirmed) Active Dementia(Confirmed) Active [place] toxicity(Confirmed) Active Combined hyperlipidemia(Confirmed) Active Pancytopenia related to Active medication(Confirmed) Controlled type 2 diabetes mellitus Active without complication(Confirmed) Allergies, Adverse Reactions, Alerts No Known Allergies Medications acetaminophen 500 mg oral tablet 2 tabs, Oral, q4hr, as needed for pain, # 60 tabs, 0 Refill(s) Start Date: 05/21/14 Status: OrderedAzo-Cranberry oral tablet 900 mg, Oral, Daily, At 7 AM, # 90 Each, 3 Refill(s), Pharmacy: [facility] Start Date: 02/16/15 Status: OrderedCONTOUR TEST STRIPS See Instructions, TEST FASTING AND 2 HOURS AFTER SUPPER ON SUNDAY AND SUNDAY., # 100 strip, 1 Refill(s), eRx: [facility] #[id number], TEST FASTING AND 2 HOURS AFTER SUPPER ON SUNDAY AND SUNDAY. Start Date: 10/14/14 Status: OrdereddiphenhydrAMINE 25 mg oral capsule 1 caps, Oral, q4hr, as needed for rhinitis,non-prod cough, or allergy symptoms, 0 Refill(s) Start Date: 05/21/14 Status: OrderedDOK 100 mg oral capsule 100 mg 1 caps, Oral, BID, as needed for constipation, # 60 caps, 2 Refill(s), Pharmacy: [facility] [place], 1 caps Oral BID,PRN:as needed for constipation Start Date: 06/25/15 Status: OrderedFish Oil 1000 mg oral capsule [...] up to 4 per day, 0 Refill(s) Start Date: 05/21/14 Status: OrderedInvega 3 mg oral tablet, extended release 9 mg 3 tabs, Oral, qPM, # 30 tabs, 0 Refill(s) Start Date: 08/03/14 Status: Orderedlevothyroxine 50 mcg (0.05 mg) oral tablet 1 tabs, Oral, Daily, # 30 tabs, 0 Refill(s) Start Date: 05/21/14 Status: Orderedloxapine 5 mg oral capsule 5 mg 1 caps, Oral, BID, 0 Refill(s) Start Date: 07/14/15 Status: OrderedMaalox Antacid Barrier 500 mg oral tablet, chewable 2 tabs, Chewed, q4hr, 0 Refill(s) Start Date: 05/21/14 Status: OrderedmetFORMIN 500 mg oral tablet 1 tabs, Oral, Daily, # 30 tabs, 2 Refill(s), 1 tabs Oral Daily Start Date: 12/02/14 Status: OrderedMobic 15 mg oral tablet 15 mg 1 tabs, Oral, Daily, # 30 tabs, 3 Refill(s), Pharmacy: [facility] [place], 1 tabs Oral Daily Start Date: 03/19/15 Status: Orderedoxybutynin 5 mg oral tablet 1 tabs, Oral, TID, # 30 tabs, 0 Refill(s) Start Date: 05/21/14 Status: Orderedpropranolol 20 mg oral tablet 20 mg 1 tabs, Oral, BID, # 60 tabs, 3 Refill(s), Pharmacy: [facility] [place], 1 tabs Oral BID Start Date: 08/06/15 Status: OrderedRisperDAL 0.5 mg oral tablet 1 tabs, Oral, q4hr, as needed for agitation, Dr. Eduard Noriega, 0 Refill(s) Start Date: 05/21/14 Status: OrderedSennalax-S 50 mg-8.6 [...] BID, 0 Refill(s) Start Date: 05/21/14 Status: MaesvtsXnt-R-Stov oral tablet 1 tabs, Oral, Daily, # 30 tabs, 2 Refill(s), Pharmacy: [facility] [place] Start Date: 06/25/15 Status: Orderedtriamterene-hydrochlorothiazide 75 mg-50 mg oral tablet 0.5 tabs, Oral, Daily, as needed, # 30 tabs, 0 Refill(s) Start Date: 05/21/14 Status: OrderedTusslin oral liquid 2 mL, Oral, q8hr, 0 Refill(s) Start Date: 05/21/14 Status: OrderedVitamin B Complex oral capsule 1 caps, Oral, Daily, # 30 caps, 3 Refill(s), Pharmacy: [facility] [place] Start Date: 06/25/15 Status: Ordered Results No data available for this section Immunizations Vaccine Date Refusal Reason tetanus/diphth/pertuss (Tdap) adult/adol 03/26/08 influenza virus vaccine, inactivated 08/12/15 influenza virus vaccine, inactivated 08/19/14 influenza virus [...]
--- OUTSIDE RECORDS SUMMARY | 2017-09-10 10:56 | External Medical Summary | Referral Summary ---
:1950 Author Organization [facility] Address [address] [place] [address] [place] [address] Care Team Providers Name Role Phone Julio Cesar Blue Primary Care Physician Encounter VC Date(s): 08/18/15 - 08/18/15 [facility] [place] [address] [place] [phone] [place] Discharge Disposition: 01-Home or Self Care Attending Physician: Julio Cesar Blue MD Admitting Physician: Julio Cesar Blue MD Vital Signs Most recent to oldest [Reference Range]: 1 Blood Pressure [90-140/60-90 mmHg] 110/68 mmHg (08/18/15 1:43 PM) Problem List Condition Effective Dates Status Health Status Informant History of Overactive bladder,urinary Active frequency, and BPH w/prostatism(Confirmed) Schizophrenia(Confirmed) Active Dementia(Confirmed) Active [place] toxicity(Confirmed) Active Combined hyperlipidemia(Confirmed) Active Pancytopenia related [...] 90 Each, 3 Refill(s), Pharmacy: [facility] [place] Start Date: 02/16/15 Status: OrderedCONTOUR TEST STRIPS See Instructions, TEST FASTING AND 2 HOURS AFTER SUPPER ON SUNDAY AND SUNDAY., # 100 strip, 1 Refill(s), eRx: [facility] #[id number], TEST FASTING AND 2 HOURS AFTER SUPPER ON SUNDAY AND SUNDAY. Start Date: 10/14/14 Status: OrdereddiphenhydrAMINE 25 mg oral capsule 1 caps, Oral, q4hr, as needed for rhinitis,non-prod cough, or allergy symptoms, 0 Refill(s) Start Date: 05/21/14 Status: OrderedDOK 100 mg oral capsule 100 mg 1 caps, Oral, BID, as needed for constipation, # 60 caps, 2 Refill(s), Pharmacy: [facility], 1 caps Oral BID,PRN:as needed for constipation Start Date: 06/25/15 Status: OrderedFish Oil 1000 mg oral capsule 2 caps, Oral, BID, # 60 caps, 0 Refill(s) Start Date: 05/21/14 Status: Orderedgabapentin 300 mg oral capsule 300 mg 1 caps, Oral, Daily, 0 Refill(s) Start Date: 08/18/15 Status: Orderedibuprofen 200 mg oral tablet 2 [...] BID, 0 Refill(s) Start Date: 05/21/14 Status: [id number]-L-Exok oral tablet 1 tabs, Oral, Daily, # [...]
--- OUTSIDE RECORDS SUMMARY | 2017-09-10 11:00 | External Medical Summary | Referral Summary ---
:1950 Author Organization [facility] Address [address] [place] [address] [place] [phone] Care Team Providers Name Role Phone Julio Cesar Blue Primary Care Physician Encounter VC Date(s): 06/12/16 - 06/12/16 [facility] [address] [place] [phone] [place] Discharge Disposition: 01-Home or Self Care Attending Physician: Julio Cesar Blue MD Admitting Physician: Julio Cesar Blue MD Vital Signs Most recent to oldest [Reference Range]: 1 Temperature Tympanic [36.6-38.1 degC] 36.0 degC *LOW* (06/12/16 10:32 AM) Peripheral Pulse Rate [60-100 bpm] 94 bpm (06/12/16 10:32 AM) Blood Pressure [90-140/60-90 mmHg] 108/60 mmHg (06/12/16 10:32 AM) SpO2 96 % (06/12/16 10:32 AM) Problem List Condition Effective Dates Status Health Status Informant History of Overactive bladder,urinary Active frequency, and BPH w/prostatism(Confirmed) Schizophrenia(Confirmed) Active Dementia(Confirmed) Active Diaz toxicity(Confirmed) Active Combined hyperlipidemia(Confirmed) Active Pancytopenia related to Active medication(Confirmed) Controlled type 2 diabetes mellitus Active without complication(Confirmed) Allergies, Adverse Reactions, Alerts No Known Allergies Medications acetaminophen 500 mg oral tablet 1,000 mg 2 tabs, Oral, q4hr, as needed for pain, not to exceed 4000 mg/day, # 100 tabs, 11 Refill(s), Pharmacy: [facility] [place], 2 tabs Oral q4hr,PRN :as needed for pain,Instr:not to exceed 4000 mg/day Start Date: 03/08/16 Status: OrderedAzo-Cranberry oral tablet 900 mg, Oral, Daily, At 7 AM, # 90 Each, 3 Refill(s), Pharmacy: [facility] [place] Start Date: 02/16/15 Status: OrderedCONTOUR TEST STRIPS See Instructions, TEST FASTING AND 2 HOURS AFTER SUPPER ON SUNDAY AND SUNDAY., # 100 strip, 1 Refill(s), eRx: [facility] #[id number], TEST FASTING AND 2 HOURS AFTER SUPPER [...] Oral BID,PRN:as needed for constipation Start Date: 05/25/16 Status: OrderedFish Oil 1000 mg oral capsule 2,000 mg 2 caps, Oral, BID, # 120 caps, 11 Refill(s), Pharmacy: [facility] [place], 2 caps Oral BID Start Date: 04/03/16 Status: Orderedgabapentin 300 mg oral capsule 300 [...] 0 Refill(s) Start Date: 05/21/14 Status: OrderedInvega 9 mg oral tablet, extended release See Instructions, One tablet by mouth once daily at 6pm for psychosis, # 30 tabs , 11 Refill(s), Pharmacy: [facility] [place], One tablet by mouth once daily at 6pm for psychosis Start Date: 03/31/16 Status: Orderedlevothyroxine 50 mcg (0.05 mg) oral tablet 1 tabs, Oral, Daily, # 30 tabs, 0 Refill(s) Start Date: 05/21/14 Status: Orderedloxapine 5 mg oral capsule 5 mg 1 caps, Oral, BID, # 60 caps, 11 Refill(s), Pharmacy: [facility] [place], 1 caps Oral BID Start Date: 03/31/16 Status: OrderedMaalox Antacid Barrier 500 mg oral [...] tabs, 0 Refill(s) Start Date: 05/21/14 Status: Orderedoxybutynin 5 mg oral tablet 5 mg 1 tabs, Oral, TID, # 270 tabs, 1 Refill(s), Pharmacy: [facility] [place], 1 tabs Oral TID Start Date: 05/09/16 Status: OrderedRisperDAL 0.5 mg oral tablet 1 [...] tabs, 0 Refill(s) Start Date: 05/21/14 Status: OrderedSinemet 25 mg-100 mg oral tablet 1 tabs, Oral, BID, # 60 tabs, 0 Refill(s), other reason (Rx) Start Date: 12/06/15 Status: OrderedSlow Release Iron 160 mg (50 mg elemental iron) oral tablet, extended release 1 tabs, Oral, Daily, # 30 tabs, 0 Refill(s) Start Date: 05/21/14 Status: OrderedSudoGest 30 mg oral tablet 1 tabs, Oral, BID, 0 Refill(s) Start Date: 05/21/14 Status: CwqrqpeLnk-F-Jrri oral tablet 1 tabs, Oral, Daily, keep aug. appt for additional refills, # 30 tabs, 0 Refill( s), Pharmacy: [facility] [place] Start Date: 05/26/16 Status: Orderedtriamterene-hydrochlorothiazide 75 mg-50 mg oral tablet 0.5 tabs, Oral, Daily, as needed, # 30 tabs, 0 Refill(s) Start Date: 05/21/14 Status: Orderedtrue plus lancets true plus lancets, See Instructions, est fasting and 2 hours after supper on sunday and sundayDX: E11.9, # 1 boxes, 5 Refill(s), Pharmacy: [facility] [place], est fasting and 2 hours aftersupper on sunday and sunday; DX: E11.9 Start Date: 02/29/16 Status: OrderedTusslin oral liquid 2 mL, Oral, q8hr, 0 Refill(s) Start Date: 05/21/14 Status: OrderedVitamin B Complex oral capsule 1 caps, Oral, Daily, # 90 caps, 3 Refill(s), Pharmacy: [facility] [place] Start Date: 09/03/15 Status: Ordered Results Chemistry Most recent to oldest [Reference Range]: 1 Sodium Lvl [135-144 mEq/L] 138 mEq/L (06/12/16 11:10 AM) Potassium Lvl [3.5-5.2 mEq/L] 4.7 mEq/L (06/12/16 11:10 AM) Chloride [99-111 mEq/L] 104 mEq/L (06/12/16 11:10 AM) CO2 [23-31 mEq/L] 28 mEq/L (06/12/16 11:10 AM) AGAP [3-20] 6 (06/12/16 11:10 AM) BUN [8-26 mg/dL] 24 mg/dL (06/12/16 11:10 AM) Glucose Lvl [70-99 mg/dL] 72 mg/dL (06/12/16 11:10 AM) Creatinine Lvl [0.72-1.25 mg/dL] 0.83 mg/dL (06/12/16 11:10 AM) eGFR [>60 mL/min] >60 mL/min 1 (06/12/16 11:10 AM) Calcium Lvl [8.9-10.5 mg/dL] 10.1 mg/dL (06/12/16 11:10 AM) Albumin Lvl [3.4-4.8 gm/dL] 4.5 gm/dL (06/12/16 11:10 AM) Total Protein [6.0-7.6 gm/dL] 7.4 gm/dL 2 (06/12/16 11:10 AM) Globulin [1.8-4.0 gm/dL] 2.9 gm/dL (06/12/16 11:10 AM) ALT [0-55 U/L] 13 U/L (06/12/16 11:10 AM) AST [5-34 U/L] 18 U/L (06/12/16 11:10 AM) Alk Phos [40-150 U/L] 125 U/L (06/12/16 11:10 AM) Bili Total [0.2-1.2 mg/dL] 0.3 mg/dL (06/12/16 11:10 AM) Hgb A1c [4.1-5.6 %] 6.8 % *HI* (06/12/16 11:10 AM) eAvg Glucose 148.5 mg/dL (06/12/16 11:10 AM) 1Result Comment: Multiply eGFR results by 1.21 for race.2Result Comment: Please note new reference range for adult Protein. Immunizations Vaccine Date Refusal Reason tetanus/diphth/pertuss (Tdap) [...] Smoking Status Never smoker Assessment and Plan Extracted from: Title: Ambulatory Patient Education Author: Julio Cesar Blue MD Date: Behavioral Health Schizophrenia Schizophrenia is a mental illness. It may cause disturbed or disorganized thinking, speech, or behavior. People with schizophrenia have problems functioning in one or more areas of life: work, school, h ome, or relationships. People with schizophrenia are at increased risk for suicide, certain chronic physical illnesses, and unhealthy behaviors, such as smoking and drug use. People who have family members with schizophrenia are at higher risk of developing the illness. Schizophrenia affects men and women equally but usually appears at an earlier age (teenage or early adult years) in men. SYMPTOMS The earliest symptoms are often subtle (prodrome) and may go unnoticed until the illness becomes more severe (first-break psychosis). Symptoms of schizophrenia may be continuous or may come and go in se verity. Episodes often are triggered by major life events, such as family stress, college, service, marriage, or child , divorce, or loss of a loved one. People with schizophreni a may see, hear, or feel things that do not exist (hallucinations). They may have false beliefs in spite of obvious proof to the contrary (delusions). Sometimes speech is incoherent or behavior is odd or withdrawn. DIAGNOSIS Schizophrenia is diagnosed through an assessment by your caregiver. Your caregiver will ask questions about your thoughts, behavior, mood, and ability to function in daily life. Your caregiver may ask q uestions about your medical history and use of alcohol or drugs, including prescription medication. Your caregiver may also order blood tests and imaging exams. Certain medical conditions and substances can cause symptoms that resemble schizophrenia. Your caregiver may refer you to a mental health specialist for evaluation. There are three major criterion for a diagnosis of schizophrenia: Two or more of the following five symptoms are present for a month or longer: Delusions. Often the delusions are that you are being attacked, harassed , cheated, persecuted or conspired against (persecutory delusions). Hallucinations. Disorganized speech that does not make sense to others. Grossly disorganized (confused or unfocused) behavior or extremely overactive or underactive motor activity (catatonia). Negative symptoms such as bland or blunted emotions (flat affect), loss of will power (avolition), and withdrawal from social contacts (social isolation ). Level of functioning in one or more major areas of life (work, school, relationships, or self-care) is markedly below the level of functioning before the onset of illness. There are continuous signs of illness (either mild symptoms or decreased level of functioning) for at least 6 months or longer. TREATMENT Schizophrenia is a long-term illness. It is best controlled with continuous treatment rather than treatment only when symptoms occur. The following treatments are used to manage schizophrenia: MedicationMedication is the most effective and important form of treatment for schizophrenia. Antipsychotic medications are usually prescribed to help manage schizophrenia. Other types of medi cation may be added to relieve any symptoms that may occur despite the use of antipsychotic medications. Counseling or talk therapyIndividual, group, or family counseling may be helpful in providing education, support, and guidance. Many people with schizophrenia also benefit from social skills and job skills (vocational) training. A combination of medication and counseling is best for managing the disorder over time. A procedure in which electricity is applied to the brain through the scalp (electroconvulsive therapy) may be used to treat catatonic schizophrenia or schizophrenia in people who cannot take or do not respond to medication and counseling. This information is not intended to replace advice given to you by your health care provider. Make sure you discuss any questions you have with your health care provider. Document Released: 10/05/2001 Document Revised: 10/29/2015 Document Reviewed: 12/31/2013 ExitCare Patient Information 2016 [employer] [facility]. No follow up information was provided. Extracted from: Title: Office Visit Note Author: Julio Cesar Blue MD Date: 06/12/16 Assessment/Plan Dementia stable. Ordered: Comprehensive Metabolic Panel Hemoglobin A1c Office Visit Level 4 Est 66347 History of Overactive bladder,urinary frequency, and BPH w/prostatism under control. Ordered: Office Visit Level 4 Est 11863 Schizophrenia Continue with the current treatment. Ordered: Comprehensive Metabolic Panel Office Visit Level 4 Est 05776
--- OUTSIDE RECORDS SUMMARY | 2017-09-10 11:01 | External Medical Summary | Referral Summary ---
:1950 Author Organization [facility] [address] [place] [id number] Care Team Providers Name Role Phone Julio Cesar Blue Primary Care Physician Encounter VC Date(s): 09/19/16 - 09/19/16 [facility] [place] [phone] Discharge Diagnosis: Dementia Discharge Diagnosis: Combined hyperlipidemia Discharge Diagnosis: History of Overactive bladder,urinary frequency, and BPH w/ prostatism Discharge Diagnosis: Schizophrenia Discharge Diagnosis: Delirium due to known physiological condition Discharge Diagnosis: Controlled type 2 diabetes mellitus without complication Discharge Disposition: 01-Home or Self Care Attending Physician: Julio Cesar Blue MD Admitting Physician: Julio Cesar Blue MD Vital Signs Most recent to oldest [Reference Range]: 1 Blood Pressure [90-140/60-90 mmHg] 104/62 mmHg (09/19/16 1:21 PM) Problem List Condition Effective Dates Status Health Status Informant History of Overactive bladder,urinary Active frequency, and BPH w/prostatism(Confirmed) Schizophrenia(Confirmed) Active Unity toxicity(Confirmed) Active Combined hyperlipidemia(Confirmed) Active Dementia(Confirmed) Active Pancytopenia related to Active medication(Confirmed) Controlled [...] exceed 4000 mg/day Start Date: 03/08/16 Status: Orderedamantadine 100 mg oral tablet 100 mg 1 tabs, Oral, BID, 0 Refill(s) Start Date: 09/19/16 Status: OrderedAzo-Cranberry oral tablet 900 mg, Oral, Daily, At 7 AM, # 90 Each, 3 Refill(s), Pharmacy: [facility] [place] Start Date: 07/04/16 Status: OrderedCONTOUR TEST STRIPS See Instructions, TEST FASTING AND 2 HOURS AFTER SUPPER ON SUNDAY AND SUNDAY., # 100 strip, 1 Refill(s), eRx: [facility] #[id number], TEST FASTING AND 2 HOURS AFTER SUPPER [...] Oral BID,PRN:as needed for constipation Start Date: 08/02/16 Status: OrderedFish Oil 1000 mg oral capsule 2,000 mg 2 caps, Oral, BID, # 120 caps, 4 Refill(s), Pharmacy: [facility] [place], 2 caps OralBID Start Date: 09/06/16 Status: Orderedgabapentin 300 mg oral capsule 300 mg 1 caps, Oral, Daily, # 30 caps, 0 Refill(s), Pharmacy: [facility] [place], 1 caps Oral Daily Start Date: 09/19/16 Status: Orderedibuprofen 200 mg oral tablet 2 [...] q4hr, 0 Refill(s) Start Date: 05/21/14 Status: OrderedMaxzide-25 oral tablet See Instructions, 1/2 tab daily., # 90 tabs, 3 Refill(s) Start Date: 09/19/16 Status: Orderedmeloxicam 15 mg oral tablet 15 mg 1 tabs, Oral, Daily, # 30 tabs, 0 Refill(s) Start Date: 09/19/16 Status: OrderedmetFORMIN 500 mg oral tablet 500 mg 1 tabs, Oral, Daily, # 30 tabs, 2 Refill(s), Pharmacy: [facility] [place], 1 tabs Oral Daily Start Date: 08/29/16 Status: Orderedoxybutynin 5 mg oral tablet 5 [...] mg-100 mg oral tablet 1 tabs, Oral, QID, # 60 tabs, 0 Refill(s), other reason (Rx) Start Date: 12/06/15 Status: OrderedSlow Release Iron 160 mg (50 mg elemental iron) oral tablet, extended release 1 tabs, Oral, Daily, # 30 tabs, 0 Refill(s) Start Date: 05/21/14 Status: OrderedSudoGest 30 mg oral tablet 1 tabs, Oral, BID, 0 Refill(s) Start Date: 05/21/14 Status: QxkjnblTgw-I-Fquh oral tablet 1 tabs, Oral, Daily, # 90 tabs, 2 Refill(s), Pharmacy: [facility] [place] Start Date: 07/04/16 Status: Orderedtriamterene-hydrochlorothiazide 75 mg-50 mg oral tablet [...] sunday and sunday; DX: E11.9 Start Date: 08/31/16 Status: OrderedTusslin oral liquid 2 mL, Oral, q8hr, 0 Refill(s) Start Date: 05/21/14 Status: OrderedVitamin B Complex oral capsule 1 caps, Oral, Daily, # 90 caps, 3 Refill(s), Pharmacy: [facility] [place] Start Date: 08/02/16 Status: Ordered Results No data available for [...] Education Author: Julio Cesar Blue MD Date: Cardiovascular Dyslipidemia Dyslipidemia is an imbalance of the lipids in your blood. Lipids are waxy, fat- like proteins that your body needs in small amounts. Dyslipidemia often involves the lipids cholesterol or triglycerides. Common forms of dyslipidemia are: High levels of bad cholesterol (LDL cholesterol). LDL cholesterol is the type of cholesterol that causes heart disease. Low levels of good cholesterol (HDL cholesterol). HDL cholesterol is the type of cholesterol that helps protect against heart disease. High levels of triglycerides. Triglycerides are a fatty substance in the blood linked to a buildup of plaque on your arteries. RISK FACTORS Increased age. Having a family history of high cholesterol. Certain medicines, including control pills, diuretics, beta- blockers, and some medicines for depression. Smoking. Eating a high-fat diet. Being overweight. Medical conditions such as diabetes, polycystic ovary syndrome, , kidney disease, and hypothyroidism. Lack of regular exercise. SIGNS AND SYMPTOMS There are no signs or symptoms with dyslipidemia. DIAGNOSIS A simple blood test called a fasting blood test can be done to determine your level of: Total cholesterol. This is the combined number of LDL cholesterol and HDL cholesterol. A healthy number is lower than 200. LDL cholesterol. The goal number for LDL cholesterol is different for each person depending on risk factors. Ask your health care provider what your LDL cholesterol number should be. HDL cholesterol. A healthy level of HDL cholesterol is 60 or higher. A number lower than 40 for men or 50 for women is a danger sign. Triglycerides. A healthy triglyceride number is less than 150. TREATMENT Dyslipidemia is a treatable condition. Your health care provider will advise you on what type of treatment is best based on your age, your test results, and current guidelines. Treatment may include: Dietary changes. A dietitian may help you create a diet that is based on your risk factors, conditions, and lifestyle. Regular exercise. This can help lower your LDL cholesterol, raise your HDL cholesterol, and help with weight management. Check with your health care provider before beginning an exercise program. Most people should participate in 30 minutes of brisk exercise 5 days a week. Quitting smoking. Medicines to lower LDL cholesterol and triglycerides. If you have high levels of triglycerides, your health care provider may: Have you stop drinking alcohol. Have you restrict your fat intake. Have you eliminate refined sugars from your diet. Treat you for other conditions, such as underactive thyroid gland ( hypothyroidism) and high blood sugar (hyperglycemia). Your health care provider will monitor your lipid levels with regular blood tests. HOME CARE INSTRUCTIONS Eat a healthy diet. Follow any diet instructions if they were given to you by your health care provider. Maintain a healthy weight. Exercise regularly based on the recommendations of your health care provider. Do not use any tobacco products, including cigarettes, chewing tobacco, or electronic cigarettes. Take medicines only as directed by your health care provider. Keep all follow-up visits as directed by your health care provider. SEEK MEDICAL CARE IF: You are having possible side effects from your medicines. This information is not intended to replace advice given to you by your health care provider. Make sure you discuss any questions you have with your health care provider. Document Released: 10/13/2014 Document Revised: 10/29/2015 Document Reviewed: 10/13/2014 [employer] Interactive Patient Education 2016 [employer]. Obstetrics and Gynecology Overactive Bladder, Adult Overactive bladder is a group of urinary symptoms. With overactive bladder, you may suddenly feel the need to pass urine (urinate) right away. After feeling this sudden urge, you might also leak urine i f you cannot get to the bathroom fast enough (urinary incontinence). These symptoms might interfere with your daily work or social activities. Overactive bladder symptoms may also wake you up at night. Overactive bladder affects the nerve signals between your bladder and your brain. Your bladder may get the signal to empty before it is full. Very sensitive muscles can also make your bladder squeeze too soon. CAUSES Many things can cause an overactive bladder. Possible causes include: Urinary tract infection. Infection of nearby tissues, such as the prostate. Prostate enlargement. Being with twins or more (multiples). Surgery on the uterus or urethra. Bladder stones, inflammation, or tumors. Drinking too much caffeine or alcohol. Certain medicines, especially those that you take to help your body get rid of extra fluid (diuretics) by increasing urine production. Muscle or nerve weakness, especially from: A spinal cord injury. Stroke. Multiple sclerosis. Parkinson disease. Diabetes. This can cause a high urine volume that fills the bladder so quickly that the normal urge to urinate is triggered very strongly. Constipation. A buildup of too much stool can put pressure on your bladder. RISK FACTORS You may be at greater risk for overactive bladder if you: Are an older adult. Smoke. Are going through menopause. Have prostate problems. Have a neurological disease, such as stroke, dementia, Parkinson disease , or multiple sclerosis (MS). Eat or drink things that irritate the bladder. These include alcohol, spicy food, and caffeine. Are overweight or obese. SIGNS AND SYMPTOMS The signs and symptoms of an overactive bladder include: Sudden, strong urges to urinate. Leaking urine. Urinating eight or more times per day. Waking up to urinate two or more times per night. DIAGNOSIS Your health care provider may suspect overactive bladder based on your symptoms. The health care provider will do a physical exam and take your medical history. Blood or urine tests may also be done. Fo r example, you might need to have a bladder function test to check how well you can hold your urine. You might also need to see a health care provider who specializes in the urinary tract (urologist). TREATMENT Treatment for overactive bladder depends on the cause of your condition and whether it is mild or severe. Certain treatments can be done in your health care provider's office or clinic. You can also make lifestyle changes at home. Options include: Behavioral Treatments Biofeedback. A specialist uses sensors to help you become aware of your body's signals. Keeping a daily log of when you need to urinate and what happens after the urge. This may help you manage your condition. Bladder training. This helps you learn to control the urge to urinate by following a schedule that directs you to urinate at regular intervals (timed voiding). At first, you might have to wait a few minutes after feeling the urge. In time, you should be able to schedule bathroom visits an hour or more apart. Kegel exercises. These are exercises to strengthen the pelvic floor muscles, which support the bladder. Toning these muscles can help you control urination, even if your bladder muscles are overa ctive. A specialist will teach you how to do these exercises correctly. They require daily practice. Weight loss. If you are obese or overweight, losing weight might relieve your symptoms of overactive bladder. Talk to your health care provider about losing weight and whether there is a specific program or method that would work best for you. Diet change. This might help if constipation is making your overactive bladder worse. Your health care provider or a dietitian can explain ways to change what you eat to ease constipation. You mi ght also need to consume less alcohol and caffeine or drink other fluids at different times of the day. Stopping smoking. Wearing pads to absorb leakage while you wait for other treatments to take effect. Physical Treatments Electrical stimulation. Electrodes send gentle pulses of electricity to strengthen the nerves or muscles that help to control the bladder. Sometimes, the electrodes are placed outside of the body . In other cases, they might be placed inside the body (implanted). This treatment can take several months to have an effect. Supportive devices. Women may need a plastic device that fits into the vagina and supports the bladder (pessary). Medicines Several medicines can help treat overactive bladder and are usually used along with other treatments. Some are injected into the muscles involved in urination. Others come in pill form. Your health care provider may prescribe: Antispasmodics. These medicines block the signals that the nerves send to the bladder. This keeps the bladder from releasing urine at the wrong time. Tricyclic antidepressants. These types of antidepressants also relax bladder muscles. Surgery You may have a device implanted to help manage the nerve signals that indicate when you need to urinate. You may have surgery to implant electrodes for electrical stimulation. Sometimes, very severe cases of overactive bladder require surgery to change the shape of the bladder. HOME CARE INSTRUCTIONS Take medicines only as directed by your health care provider. Use any implants or a pessary as directed by your health care provider. Make any diet or lifestyle changes that are recommended by your health care provider. These might include: Drinking less fluid or drinking at different times of the day. If you need to urinate often during the night, you may need to stop drinking fluids early in the evening. Cutting down on caffeine or alcohol. Both can make an overactive bladder worse. Caffeine is found in coffee, tea, and sodas. Doing Kegel exercises to strengthen muscles. Losing weight if you need to. Eating a healthy and balanced diet to prevent constipation. Keep a journal or log to track how much and when you drink and also when you feel the need to urinate. This will help your health care provider to monitor your condition. SEEK MEDICAL CARE IF: Your symptoms do not get better after treatment. Your pain and discomfort are getting worse. You have more frequent urges to urinate. You have a fever. SEEK IMMEDIATE MEDICAL CARE IF: You are not able to control your bladder at all. This information is not intended to replace advice given to you by your health care provider. Make sure you discuss any questions you have with your health care provider. Document Released: 08/04/2010 Document Revised: 10/29/2015 Document Reviewed: 03/03/2015 [employer] Interactive Patient Education 2016 [employer]. Preventive Medicine Blood Glucose Monitoring, Adult Monitoring your blood glucose (also know as blood sugar) helps you to manage your diabetes. It also helps you and your health care provider monitor your diabetes and determine how well your treatment plan is working. WHY SHOULD YOU MONITOR YOUR BLOOD GLUCOSE? It can help you understand how food, exercise, and medicine affect your blood glucose. It allows you to know what your blood glucose is at any given moment. You can quickly tell if you are having low blood glucose (hypoglycemia) or high blood glucose (hyperglycemia). It can help you and your health care provider know how to adjust your medicines. It can help you understand how to manage an illness or adjust medicine for exercise. WHEN SHOULD YOU TEST? Your health care provider will help you decide how often you should check your blood glucose. This may depend on the type of diabetes you have, your diabetes control, or the types of medicines you are t aking. Be sure to write down all of your blood glucose readings so that this information can be reviewed with your health care provider. See below for examples of testing times that your health care provider may suggest. Type 1 Diabetes Test at least 2 times per day if your diabetes is well controlled, if you are using an insulin pump, or if you perform multiple daily injections. If your diabetes is not well controlled or if you are sick, you may need to test more often. It is a good idea to also test: Before every insulin injection. Before and after exercise. Between meals and 2 hours after a meal. Occasionally between 2:00 a.m. and 3:00 a.m. Type 2 Diabetes If you are taking insulin, test at least 2 times per day. However, it is best to test before every insulin injection. If you take medicines by mouth (orally), test 2 times a day. If you are on a controlled diet, test once a day. If your diabetes is not well controlled or if you are sick, you may need to monitor more often. HOW TO MONITOR YOUR BLOOD GLUCOSE Supplies Needed Blood glucose meter. Test strips for your meter. Each meter has its own strips. You must use the strips that go with your own meter. A pricking needle (lancet). A device that holds the lancet (lancing device). A journal or log book to write down your results. Procedure Wash your hands with soap and water. Alcohol is not preferred. Prick the side of your finger (not the tip) with the lancet. Gently milk the finger until a small drop of blood appears. Follow the instructions that come with your meter for inserting the test strip, applying blood to the strip, and using your blood glucose meter. Other Areas to Get Blood for Testing Some meters allow you to use other areas of your body (other than your finger) to test your blood. These areas are called alternative sites. The most common alternative sites are: The forearm. The thigh. The back area of the lower leg. The palm of the hand. The blood flow in these areas is slower. Therefore, the blood glucose values you get may be delayed, and the numbers are different from what you would get from your fingers. Do not use alternative sites if you think you are having hypoglycemia. Your reading will not be accurate. Always use a finger if you are having hypoglycemia. Also, if you cannot feel your lows (hypoglycemia unawareness), always use your fingers for your blood glucose checks. ADDITIONAL TIPS FOR GLUCOSE MONITORING Do not reuse lancets. Always carry your supplies with you. All blood glucose meters have a 24-hour "hotline" number to call if you have questions or need help. Adjust (calibrate) your blood glucose meter with a control solution after finishing a few boxes of strips. BLOOD GLUCOSE RECORD KEEPING It is a good idea to keep a daily record or log of your blood glucose readings. Most glucose meters, if not all, keep your glucose records stored in the meter. Some meters come with the ability to downl oad your records to your home computer. Keeping a record of your blood glucose readings is especially helpful if you are wanting to look for patterns. Make notes to go along with the blood glucose readi ngs because you might forget what happened at that exact time. Keeping good records helps you and your health care provider to work together to achieve good diabetes management. This information is not intended to replace advice given to you by your health care provider. Make sure you discuss any questions you have with your health care provider. Document Released: 10/10/2004 Document Revised: 10/29/2015 Document Reviewed: 03/02/2014 [employer] Interactive Patient Education 2016 [employer] No follow up information was provided. Extracted from: Title: Office Visit Note Author: Julio Cesar Blue MD Date: 09/19/16 Assessment/Plan 1.Controlled type 2 diabetes mellitus without complication Will get lab through [facility]. Ordered: Periodic Comp Preventive Med 65+ years Est 09952 2.Combined hyperlipidemia Will continueto follow and with next lab get a Lipid profile. Ordered: Periodic Comp Preventive Med 65+ years Est 01220 3.Dementia, Unchanged. Delirium due to known physiological condition Ordered: Periodic Comp Preventive Med 65+ years Est 37830 4.History of Overactive bladder,urinary frequency, and BPH w/prostatism Problems withmedication for incontinence. Will decrease the HCTZ to a 12.5mg dose. Ordered: Periodic Comp Preventive Med 65+ years Est 45209 5.Schizophrenia Continue with current medications and follow up through [facility]. Ordered: Periodic Comp Preventive Med 65+ years Est 23291
--- OUTSIDE RECORDS SUMMARY | 2017-09-10 11:01 | External Medical Summary | Referral Summary ---
:1950 Author Organization [facility] Address [address] [place] [address] [place] [phone] Care Team Providers Name Role Phone Julio Cesar Blue Primary Care Physician Encounter VC Date(s): 03/31/15 - 03/31/15 [facility] [address] [place] [phone] [place] Discharge Disposition: 01-Home or Self Care Attending Physician: Julio Cesar Blue MD Admitting Physician: Julio Cesar Blue MD Vital Signs Most recent to oldest [Reference Range]: 1 Blood Pressure [90-140/60-90 mmHg] 102/62 mmHg (03/31/15 11:18 AM) Problem List Condition Effective Dates Status Health Status Informant History of Overactive bladder,urinary Active frequency, and BPH w/prostatism(Confirmed) Schizophrenia(Confirmed) Active Dementia(Confirmed) Active [place] toxicity(Confirmed) Active Combined hyperlipidemia(Confirmed) Active Pancytopenia related [...] 90 Each, 3 Refill(s), Pharmacy: [facility] [place] Start Date: 02/16/15 Status: OrderedCONTOUR TEST STRIPS See Instructions, TEST FASTING AND 2 HOURS AFTER SUPPER ON SUNDAY AND SUNDAY., # 100 strip, 1 Refill(s), eRx: [facility] #[id number], TEST FASTING AND 2 HOURS AFTER SUPPER ON SUNDAY AND SUNDAY. Start Date: 10/14/14 Status: OrdereddiphenhydrAMINE 25 mg oral capsule 1 caps, Oral, q4hr, as needed for rhinitis,non-prod cough, or allergy symptoms, 0 Refill(s) Start Date: 05/21/14 Status: OrderedDOK 100 mg oral capsule 100 mg 1 caps, Oral, BID, as needed for constipation, # 60 caps, 2 Refill(s), Pharmacy: [facility], 1 caps Oral BID,PRN:as needed for constipation [...] BID, 0 Refill(s) Start Date: 05/21/14 Status: XbxjljjUqx-C-Jacd oral tablet 1 tabs, Oral, Daily, # [...] [facility] [place] Start Date: 06/25/15 Status: OrderedVitamin B Complex oral capsule 1 caps, Oral, Daily, # 90 caps, 3 Refill(s), Pharmacy: [facility] [place] Start Date: 09/03/15 Status: Ordered Results No data available for [...] Education Author: Julio Cesar Blue MD Date: Dentistry Dental Care and Dentist Visits Dental care supports good overall health. Regular dental visits can also help you avoid dental pain, bleeding, infection, and other more serious health problems in the future. It is important to keep th e mouth healthy because diseases in the teeth, gums, and other oral tissues can spread to other areas of the body. Some problems, such as diabetes, heart disease, and pre-term labor have been associated with poor oral health. See your dentist every 6 months. If you experience emergency problems such as a toothache or broken tooth, go to the dentist right away. If you see your dentist regularly, you may catch problems early. It is easier to be treated for problems in the early stages. WHAT TO EXPECT AT A DENTIST VISIT Your dentist will look for many common oral health problems and recommend proper treatment. At your regular dental visit, you can expect: Gentle cleaning of the teeth and gums. This includes scraping and polishing. This helps to remove the sticky substance around the teeth and gums ( plaque ). Plaque forms in the mouth shortly after e ating. Over time, plaque hardens on the teeth as tartar. If tartar is not removed regularly, it can cause problems. Cleaning also helps remove stains. Periodic X-rays. These pictures of the teeth and supporting bone will help your dentist assess the health of your teeth. Periodic fluoride treatments. Fluoride is a natural mineral shown to help strengthen teeth. Fluoride treatmentinvolves applying a fluoride gel or varnish to the teeth. It is most commonly done in children. Examination of the mouth, tongue, jaws, teeth, and gums to look for any oral health problems, such as: Cavities (dental caries ). This is decay on the tooth caused by plaque, sugar, and acid in the mouth. It is best to catch a cavity when it is small. Inflammation of the gums caused by plaque buildup (gingivitis ). Problems with the mouth or malformed or misaligned teeth. Oral cancer or other diseases of the soft tissues or jaws. KEEP YOUR TEETH AND GUMS HEALTHY For healthy teeth and gums, follow these general guidelines as well as your dentist's specific advice: Have your teeth professionally cleaned at the dentist every 6 months. [place] twice daily with a fluoride toothpaste. Floss your teeth daily. Ask your dentist if you need fluoride supplements, treatments, or fluoride toothpaste. Eat a healthy diet. Reduce foods and drinks with added sugar. Avoid smoking. TREATMENT FOR ORAL HEALTH PROBLEMS If you have oral health problems, treatment varies depending on the conditions present in your teeth and gums. Your caregiver will most likely recommend good oral hygiene at each visit. For cavities, gingivitis, or other oral health disease, your caregiver will perform a procedure to treat the problem. This is typically done at a separate appointment. Sometimes your caregiver will refer you to another dental specialist for specific tooth problems or for surgery. SEEK IMMEDIATE DENTAL CARE IF: You have pain, bleeding, or soreness in the gum, tooth, jaw, or mouth area. A permanent tooth becomes loose or from the gum socket. You experience a blow or injury to the mouth or jaw area. Document Released: 06/19/2012 Document Revised: 12/30/2012 Document Reviewed: 06/19/2012 ExitCare Patient Information 2014 [employer]. No follow up information was provided. Extracted from: Title: Office Visit Note Author: Julio Cesar Blue MD Date: 03/31/15 Assessment/Plan Traumatic ulcer of oral mucosa Will send to the dentist and continue to follow up for healing and if not then a a biopsy. Ordered: Office Visit Level 3 Est 47483
--- OUTSIDE RECORDS SUMMARY | 2017-09-10 11:01 | External Medical Summary | Referral Summary ---
:1950 Author Organization [facility] Address [address] [place] [address] [place] [phone] Care Team Providers Name Role Phone Julio Cesar Blue Primary Care Physician Encounter VC Date(s): 08/12/15 - 08/12/15 [facility] [address] [place] [phone] [place] Discharge Disposition: 01-Home or Self Care Attending Physician: Julio Cesar Blue MD Admitting Physician: Julio Cesar Blue MD Vital Signs No data available for this section Problem List Condition Effective Dates Status Health Status Informant History of Overactive bladder,urinary Active frequency, and BPH w/prostatism(Confirmed) Schizophrenia(Confirmed) Active Dementia(Confirmed) Active [place] toxicity(Confirmed) Active Combined hyperlipidemia(Confirmed) Active Pancytopenia related [...] 90 Each, 3 Refill(s), Pharmacy: [facility] [place] Start Date: 02/16/15 Status: OrderedCONTOUR TEST STRIPS See Instructions, TEST FASTING AND 2 HOURS AFTER SUPPER ON SUNDAY AND SUNDAY., # 100 strip, 1 Refill(s), [facility]: [id number], TEST FASTING AND 2 HOURS AFTER SUPPER [...] BID, 0 Refill(s) Start Date: 05/21/14 Status: PyuiddbCdz-A-Tulh oral tablet 1 tabs, Oral, Daily, # 30 tabs, 2 Refill(s), Pharmacy: [facility] [place] Start Date: 06/25/15 Status: Orderedtriamterene-hydrochlorothiazide 75 mg-50 mg oral tablet 0.5 tabs, Oral, Daily, as needed, # 30 tabs, 0 Refill(s) Start Date: 05/21/14 Status: Orderedtrue plus lancets true plus lancets, See Instructions, est fasting and 2 hours after supper on sunday and sundayDX: E11.9, # 1 boxes, 0 Refill(s) Start Date: 02/10/16 Status: OrderedTusslin oral liquid 2 mL, Oral, [...]
--- OUTSIDE RECORDS SUMMARY | 2017-09-10 11:01 | External Medical Summary | Referral Summary ---
:1950 Author Organization [facility] Address [address] [place] [address] [place] [phone] Care Team Providers Name Role Phone Julio Cesar Blue Primary Care Physician Encounter VC Date(s): 12/06/15 - 12/06/15 [facility] [address] [place] [phone] [place] Discharge Disposition: 01-Home or Self Care Attending Physician: Julio Cesar Blue MD Admitting Physician: Julio Cesar Blue MD Vital Signs Most recent to oldest [Reference Range]: 1 Temperature Tympanic [36.6-38.1 degC] 36.8 degC (12/06/15 10:45 AM) Peripheral Pulse Rate [60-100 bpm] 87 bpm (12/06/15 10:45 AM) Respiratory Rate [14-20 br/min] 17 br/min (12/06/15 10:45 AM) Blood Pressure [90-140/60-90 mmHg] 118/70 mmHg (12/06/15 10:45 AM) SpO2 96 % (12/06/15 10:45 AM) Problem List Condition Effective Dates Status Health Status Informant History of Overactive bladder,urinary Active frequency, and BPH w/prostatism(Confirmed) Schizophrenia(Confirmed) Active Dementia(Confirmed) Active [place] toxicity(Confirmed) Active Combined hyperlipidemia(Confirmed) Active Pancytopenia related [...] 1 Refill(s), eRx: [facility] #[id number], TEST FASTING AND 2 HOURS AFTER SUPPER [...] BID, 0 Refill(s) Start Date: 05/21/14 Status: MabxzqzUkg-I-Geum oral tablet 1 tabs, Oral, Daily, # [...] [place] Start Date: 09/03/15 Status: Ordered Results Hematology Most recent to oldest [Reference Range]: 1 WBC [4.8-10.8 10*3/uL] 4.1 10*3/uL *LOW* (12/06/15 11:35 AM) RBC [4.60-6.20] 4.55 *LOW* (12/06/15 11:35 AM) Hgb [14.0-18.0 gm/dL] 12.8 gm/dL *LOW* (12/06/15 11:35 AM) Hct [42.0-52.0 %] 37.6 % *LOW* (12/06/15 11:35 AM) MCV [82.0-99.0 fL] 82.6 fL (12/06/15 11:35 AM) MCH [27.0-32.0 pg] 28.1 pg (12/06/15 11:35 AM) MCHC [32.0-36.0 gm/dL] 34.0 gm/dL (12/06/15 11:35 AM) RDW [11.5-14.5 %] 12.9 % (12/06/15 11:35 AM) Platelet [150-400 10*3/uL] 232 10*3/uL (12/06/15 11:35 AM) MPV [8.8-14.8 fL] 9.9 fL (12/06/15 11:35 AM) Immature Granulocytes [0.0-1.0 %] 0.2 % (12/06/15 11:35 AM) Neutrophils [51-75 %] 48 % *LOW* (12/06/15 11:35 AM) Lymphocytes [20-46 %] 35 % (12/06/15 11:35 AM) Monocytes [4-11 %] 14 % *HI* (12/06/15 11:35 AM) Eosinophils [0-4 %] 2 % (12/06/15:35 AM) Basophils [0-2 %] 1 % (12/06/15 11:35 AM) Neutro Absolute [1.90-7.00 10*3] 1.99 10*3 (12/06/15 11:35 AM) Lymph Absolute [0.80-3.30 10*3] 1.46 10*3 (12/06/15 11:35 AM) [place] Absolute [0.30-1.00 10*3] 0.58 10*3 (12/06/15 11:35 AM) Eos Absolute [0.00-0.50 10*3] 0.06 10*3 (12/06/15 11:35 AM) Baso Absolute [0.00-0.20 10*3] 0.02 10*3 (12/06/15 11:35 AM) Chemistry Most recent to oldest [Reference Range]: 1 Sodium Lvl [135-144 mEq/L] 138 mEq/L (12/06/15 11:35 AM) Potassium Lvl [3.5-5.2 mEq/L] 4.8 mEq/L (12/06/15:35 AM) Chloride [99-111 mEq/L] 107 mEq/L (12/06/15 11:35 AM) CO2 [23-31 mEq/L] 24 mEq/L (12/06/15:35 AM) AGAP [3-20] 7 (12/06/15:35 AM) BUN [8-26 mg/dL] 24 mg/dL (12/06/15 11:35 AM) Glucose Lvl [70-99 mg/dL] 89 mg/dL (12/06/15 11:35 AM) Creatinine Lvl [0.72-1.25 mg/dL] 0.81 mg/dL (12/06/15 11:35 AM) eGFR [>60 mL/min] >60 mL/min 1 (12/06/15:35 AM) Calcium Lvl [8.9-10.5 mg/dL] 9.7 mg/dL (12/06/15 11:35 AM) Albumin Lvl [3.4-4.8 gm/dL] 4.2 gm/dL (12/06/15 11:35 AM) Total Protein [6.2-8.1 gm/dL] 7.4 gm/dL (12/06/15 11:35 AM) Globulin [1.8-4.0 gm/dL] 3.2 gm/dL (12/06/15 11:35 AM) ALT [0-55 U/L] 20 U/L (12/06/15 11:35 AM) AST [5-34 U/L] 24 U/L (12/06/15 11:35 AM) Alk Phos [40-150 U/L] 124 U/L (12/06/15 11:35 AM) Bili Total [0.2-1.2 mg/dL] 0.4 mg/dL (12/06/15 11:35 AM) PSA (wihout Reflex Free) [0.0-4.5 ng/mL] 0.5 ng/mL 2 (12/06/15 11:35 AM) Chol [0-199 mg/dL] 133 mg/dL (12/06/15 11:35 AM) Trig [0-149 mg/dL] 72 mg/dL (12/06/15 11:35 AM) HDL [40-84 mg/dL] 51 mg/dL (12/06/15 11:35 AM) LDL [0-130 mg/dL] 68 mg/dL (12/06/15 11:35 AM) VLDL Cholesterol [0-28 mg/dL] 14 mg/dL (12/06/15 11:35 AM) Cardiac Risk [0.0-5.7] 2.6 (12/06/15 11:35 AM) TSH [0.35-4.94] 0.98 (12/06/15 11:35 AM) Hgb A1c [4.1-5.6 %] 6.8 % *HI* (12/06/15 11:35 AM) eAvg Glucose 148.5 mg/dL (12/06/15 11:35 AM) 1Result Comment: Multiply eGFR results by 1.21 for race.2Result Comment: AUA PSA Best Practice Guidelines: Age-Adjusted PSA Values by Ethnic Group Age Range Asians - Caucasians Americans 40-49 0-2.0 0-2.0 0-2.5 50-59 0-3.0 0-4.0 0-3.5 60-69 0-4.0 0-4.5 0-4.5 70-79 0-5.0 0-5.5 0-6.5 Immunizations Vaccine Date Refusal Reason tetanus/diphth/pertuss (Tdap) [...]
--- OUTSIDE RECORDS SUMMARY | 2017-09-10 11:01 | External Medical Summary | Referral Summary ---
:1950 Author Organization [facility] Address [address] [place] [address] [place] [phone] Care Team Providers Name Role Phone Julio Cesar Blue Primary Care Physician Encounter VC Date(s): 03/16/15 - 03/16/15 [facility] [address] [place] [address] [place] [phone] [place] Discharge Diagnosis: Overactive bladder Discharge Diagnosis: Screening PSA (prostate specific antigen) Discharge Disposition: 01-Home or Self Care Attending Physician: Fabricio Canchola JR, MD Admitting Physician: Fabricio Canchola JR, MD Referring Physician: Julio Cesar Blue MD Vital Signs Most recent to oldest [Reference Range]: 1 Peripheral Pulse Rate [60-100 bpm] 96 bpm (03/16/15 2:17 PM) Blood Pressure [90-140/60-90 mmHg] 108/70 mmHg (03/16/15 2:17 PM) Problem List Condition Effective Dates Status Health Status Informant History of Overactive bladder,urinary Active frequency, and BPH w/prostatism(Confirmed) Schizophrenia(Confirmed) Active Dementia(Confirmed) Active [place] toxicity(Confirmed) Active Combined hyperlipidemia(Confirmed) Active Pancytopenia related [...] 90 Each, 3 Refill(s), Pharmacy: [facility] [place] Start Date: 02/16/15 Status: OrderedCONTOUR TEST STRIPS See Instructions, TEST FASTING AND 2 HOURS AFTER SUPPER ON SUNDAY AND SUNDAY., # 100 strip, 1 Refill(s), eRx: [facility] #[id number], TEST FASTING AND 2 HOURS AFTER SUPPER [...] BID, 0 Refill(s) Start Date: 05/21/14 Status: StvmmluIzj-K-Cyfi oral tablet 1 tabs, Oral, Daily, # [...] Extracted from: Title: Ambulatory Patient Education Author: Fabricio Canchola JR, MD Date: Follow Up With: Where: When: Julio Cesar Blue [address] [place] [address] Drive; [place] [address] [employer] (1) Within 3 to 5 days Comments: Follow Up With: Where: When: Fabricio Eisenberg[address]; [place] [address] [employer] ([employer]) In 1 year 03/16/2016 Comments: Extracted from: Title: Office Visit Note Author: Fabricio Canchola JR, MD Date: 03/16/15 Assessment/Plan Overactive bladder Continue the Oxybutynin 15 mg once a day. Recheck in my office in one year or sooner if needed. PSA a week before next visit 15 minute face to face visit with 2/3 of the visit devoted to counseling. Ordered: Office Visit Level 3 Est [address]1637
--- OUTSIDE RECORDS SUMMARY | 2017-09-10 11:01 | External Medical Summary | Referral Summary ---
:1950 Author Organization [facility] Address [address] [place] [address] [place] [phone] Care Team Providers Name Role Phone Julio Cesar Blue Primary Care Physician Encounter VC Date(s): 11/10/16 - 11/10/16 [facility] [address] [place] [phone] [place] Discharge Disposition: 01-Home or Self Care Attending Physician: Julio Cesar Blue MD Admitting Physician: Julio Cesar Blue MD Vital Signs Most recent to oldest [Reference Range]: 1 Blood Pressure [90-140/60-90 mmHg] 122/62 mmHg (11/10/16 1:35 PM) Problem List Condition Effective Dates Status Health Status Informant History of Overactive bladder,urinary Active frequency, and BPH w/prostatism(Confirmed) Schizophrenia(Confirmed) Active [place] toxicity(Confirmed) Active Combined hyperlipidemia(Confirmed) Active Dementia(Confirmed) Active [...] [facility] [place] Start Date: 07/04/16 Status: OrdereddiphenhydrAMINE 25 mg oral capsule 1 caps, Oral, q4hr, as needed for rhinitis,non-prod cough, or allergy symptoms, 0 Refill(s) Start Date: 05/21/14 Status: OrderedDOK 100 mg oral capsule 100 mg 1 caps, Oral, BID, as needed for constipation, # 60 caps, 2 Refill(s), Pharmacy: [facility] [place], 1 caps Oral BID,PRN:as needed for constipation Start Date: 09/28/16 Status: OrderedFish Oil 1000 mg oral capsule 2,000 mg 2 caps, Oral, BID, # 120 caps, 4 Refill(s), Pharmacy: [facility] [place], 2 caps OralBID Start Date: 09/06/16 Status: Orderedgabapentin 300 mg oral capsule 300 mg 1 caps, Oral, Daily, # 30 caps, 5 Refill(s), Pharmacy: [facility] [place], 1 caps Oral Daily Start Date: 11/01/16 Status: Orderedibuprofen 200 mg oral tablet 2 [...] 1 tabs, Oral, Daily, # 30 tabs, 5 Refill(s), Pharmacy: [facility] [place], 1 tabs Oral Daily Start Date: 11/01/16 Status: OrderedmetFORMIN 500 mg oral tablet 500 mg 1 tabs, Oral, Daily, # 30 tabs, 2 Refill(s), Pharmacy: [facility] [place], 1 tabs Oral Daily Start Date: 08/29/16 Status: OrderedMiscellaneous DME DME Item Diabetic shoes and fitting. Dx: E11.621 and E11.51, See Instructions, # 1 Each, 0 Refill(s), Supply Start Date: 10/06/16 Status: Orderedoxybutynin 5 mg oral tablet 5 [...] BID, 0 Refill(s) Start Date: 05/21/14 Status: BurkrbbUuk-F-Zwwu oral tablet 1 tabs, Oral, Daily, # 90 tabs, 2 Refill(s), Pharmacy: [facility] [place] Start Date: 07/04/16 Status: Orderedtrue plus lancets 28G true plus lancets 28G, See Instructions, test fasting and 2 hours after supper on sunday and sunday DX: E11.9, # 1 boxes, 5 Refill(s), Pharmacy: [facility] [place], test fasting and 2 hoursafter supper on sunday and sunday; DX: E11.9 Start Date: 10/18/16 Status: OrderedTusslin oral liquid 2 mL, Oral, q8hr, 0 Refill(s) Start Date: 05/21/14 Status: OrderedVitamin B Complex oral capsule 1 caps, Oral, Daily, # 90 caps, 3 Refill(s), Pharmacy: [facility] [place] Start Date: 08/02/16 Status: Ordered Results No data available for this section Immunizations Given and Recorded Vaccine Date Status Refusal Reason tetanus/diphth/pertuss (Tdap) adult/adol 03/26/08 Recorded influenza virus vaccine, inactivated 08/12/15 Given influenza virus vaccine, inactivated 08/19/14 Recorded influenza virus vaccine, live 08/26/13 Given tetanus-diphth toxoids (Td) adult/adol 01/18/00 Recorded Procedures Procedure Date Related Diagnosis Body Site [...]
--- OUTSIDE RECORDS SUMMARY | 2017-09-10 11:01 | External Medical Summary | Referral Summary ---
:1950 Author Organization [facility] Address [address] [place] [address] [place] [phone] Care Team Providers Name Role Phone Julio Cesar Blue Primary Care Physician Encounter VC Date(s): 03/08/16 - 03/08/16 [facility] [address] [place] [phone] [place] Discharge Disposition: 01-Home or Self Care Attending Physician: Julio Cesar Blue MD Admitting Physician: Julio Cesar Blue MD Vital Signs Most recent to oldest [Reference Range]: 1 Blood Pressure [90-140/60-90 mmHg] 102/70 mmHg (03/08/16 2:04 PM) Problem List Condition Effective Dates Status Health Status Informant History of Overactive bladder,urinary Active frequency, and BPH w/prostatism(Confirmed) Schizophrenia(Confirmed) Active Dementia(Confirmed) Active [place] toxicity(Confirmed) Active Combined hyperlipidemia(Confirmed) Active Pancytopenia related [...] SUNDAY., # 100 strip, 1 Refill(s), eRx: [facility] #[id number], TEST FASTING AND 2 HOURS AFTER SUPPER [...] BID, 0 Refill(s) Start Date: 05/21/14 Status: QjtwzdwShr-P-Qigi oral tablet 1 tabs, Oral, Daily, # [...] Education Author: Julio Cesar Blue MD Date: Family Medicine How to Avoid Diabetes Problems You can do a lot to prevent or slow down diabetes problems. Following your diabetes plan and taking care of yourself can reduce your risk of serious or life-threatening complications. Below, you will fi nd certain things you can do to prevent diabetes problems. MANAGE YOUR DIABETES Follow your health care provider's, nurse educator's, and dietitian's instructions for managing your diabetes. They will teach you the basics of diabetes care. They can help answer questions you may hav e. Learn about diabetes and make healthy choices regarding eating and physical activity. Monitor your blood glucose level regularly. Your health care provider will help you decide how often to check you r blood glucose level depending on your treatment goals and how well you are meeting them. DO NOT USE NICOTINE Nicotine and diabetes are a dangerous combination. Nicotine raises your risk for diabetes problems. If you quit using nicotine, you will lower your risk for heart attack, stroke, nerve disease, and kidn ey disease. Your cholesterol and your blood pressure levels may improve. Your blood circulation will also improve. Do not use any tobacco products, including cigarettes, chewing tobacco, or electronic c igarettes. If you need help quitting, ask your health care provider. KEEP YOUR BLOOD PRESSURE UNDER CONTROL Your health care provider will determine your individualized target blood pressure based on your age, your medicines, how long you have had diabetes, and any other medical conditions you have. Blood pressure consists of two numbers. Generally, the goal is to keep your top number (systolic pressure) at or below 130, and your bottom number (diastolic pressure) at or below 80. Your health care provi ravinder may recommend a lower target blood pressure reading, if appropriate. Meal planning, medicines, and exercise can help you reach your target blood pressure. Make sure your health care provider checks your blood pressure at every visit. KEEP YOUR CHOLESTEROL UNDER CONTROL Normal cholesterol levels will help prevent heart disease and stroke. These are the biggest health problems for people with diabetes. Keeping cholesterol levels under control can also help with blood fl ow. Have your cholesterol level checked at least once a year. Your health care provider may prescribe a medicine known as a statin. Statins lower your cholesterol. If you are not taking a statin, ask yo ur health care provider if you should be. Meal planning, exercise, and medicines can help you reach your cholesterol targets. SCHEDULE AND KEEP YOUR ANNUAL PHYSICAL EXAMS AND EYE EXAMS Your health care provider will tell you how often he or she wants to see you depending on your plan of treatment. It is important that you keep these appointments so that possible problems can be identi fied early and complications can be avoided or treated. Every visit with your health care provider should include your weight, blood pressure, and an evaluation of your blood glucose control. Your hemoglobin A1c should be checked: At least twice a year if you are at your goal. Every 3 months if there are changes in treatment. If you are not meeting your goals. Your blood lipids should be checked yearly. You should also be checked yearly to see if you have protein in your urine (microalbumin). Schedule a dilated eye exam within 5 years of your diagnosis if you have type 1 diabetes, and then yearly. Schedule a dilated eye exam at diagnosis if you have type 2 diabetes, and then yearly. A ll exams thereafter can be extended to every 2 to 3 years if one or more exams have been normal. KEEP YOUR VACCINES CURRENT It is recommended that you receive a flu (influenza) vaccine every year. It is also recommended that you receive a pneumonia (pneumococcal) vaccine. If you are 65 years of age or older and have never re ceived a pneumonia vaccine, this vaccine may be given as a series of two separate shots. Ask your health care provider which additional vaccines may be recommended. TAKE CARE OF YOUR FEET Diabetes may cause you to have a poor blood supply (circulation) to your legs and feet. Because of this, the skin may be thinner, break easier, and heal more slowly. You also may have nerve damage in yo ur legs and feet, causing decreased feeling. You may not notice minor injuries to your feet that could lead to serious problems or infections. Taking care of your feet is very important. Visual foot exams are performed at every routine medical visit. The exams check for cuts, injuries, or other problems with the feet. A comprehensive foot exam should be done yearly. This includes visual inspection as well as assessing foot pulses and testing for loss of sensation. You should also do the following: Inspect your feet daily for cuts, calluses, blisters, ingrown toenails, and signs of infection, such as redness, swelling, or pus. Wash and dry your feet thoroughly, especially between the toes. Avoid soaking your feet regularly in hot water baths. Moisturize dry skin with lotion, avoiding areas between your toes. Cut toenails straight across and file the edges. Avoid shoes that do not fit well or have areas that irritate your skin. Avoid going barefooted or wearing only socks. Your feet need protection. TAKE CARE OF YOUR TEETH People with poorly controlled diabetes are more likely to have gum (periodontal ) disease. These infections make diabetes harder to control. Periodontal diseases, if left untreated, can lead to tooth los s. [place] your teeth twice a day, floss, and see your dentist for checkups and cleaning every 6 months, or 2 times a year. ASK YOUR HEALTH CARE PROVIDER ABOUT TAKING ASPIRIN Taking aspirin daily is recommended to help prevent cardiovascular disease in people with and without diabetes. Ask your health care provider if this would benefit you and what dose he or she would recommend. DRINK RESPONSIBLY Moderate amounts of alcohol (less than 1 drink per day for adult women and less than 2 drinks per day for adult men) have a minimal effect on blood glucose if ingested with food. It is important to eat food with alcohol to avoid hypoglycemia. People should avoid alcohol if they have a history of alcohol abuse or dependence, if they are , and if they have liver disease, pancreatitis, advanced neuropathy, or severe hypertriglyceridemia. LESSEN STRESS Living with diabetes can be stressful. When you are under stress, your blood glucose may be affected in two ways: Stress hormones may cause your blood glucose to rise. You may be distracted from taking good care of yourself. It is a good idea to be aware of your stress level and make changes that are necessary to help you better manage challenging situations. Support groups, planned relaxation, a hobby you enjoy, meditation , healthy relationships, and exercise all work to lower your stress level. If your efforts do not seem to be helping, get help from your health care provider or a trained mental health professional. This information is not intended to replace advice given to you by your health care provider. Make sure you discuss any questions you have with your health care provider. Document Released: 06/25/2012 Document Revised: 07/27/2015 Document Reviewed: 12/02/2014 [facility] Patient Information 2015 [email or web address]. Home Health Care Diabetes and Exercise Exercising regularly is important. It is not just about losing weight. It has many health benefits, such as: Improving your overall fitness, flexibility, and endurance. Increasing your bone density. Helping with weight control. Decreasing your body fat. Increasing your muscle strength. Reducing stress and tension. Improving your overall health. People with diabetes who exercise gain additional benefits because exercise: Reduces appetite. Improves the body's use of blood sugar (glucose). Helps lower or control blood glucose. Decreases blood pressure. Helps control blood lipids (such as cholesterol and triglycerides). Improves the body's use of the hormone insulin by: Increasing the body's insulin sensitivity. Reducing the body's insulin needs. Decreases the risk for heart disease because exercising: Lowers cholesterol and triglycerides levels. Increases the levels of good cholesterol (such as high-density lipoproteins [HDL]) in the body. Lowers blood glucose levels. YOUR ACTIVITY PLAN Choose an activity that you enjoy, and set realistic goals. To exercise safely , you should begin practicing any new physical activity slowly, and gradually increase the intensity of the exercise over ti me. Your health care provider or school vocational educator can help create an activity plan that works for you. General recommendations include: Encouraging children to engage in at least 60 minutes of physical activity each day. Stretching and performing strength training exercises, such as yoga or weight lifting, at least 2 times per week. Performing a total of at least 150 minutes of moderate-intensity exercise each week, such as brisk walking or water aerobics. Exercising at least 3 days per week, making sure you allow no more than 2 consecutive days to pass without exercising. Avoiding long periods of inactivity (90 minutes or more). When you have to spend an extended period of time sitting down, take frequent breaks to walk or stretch. RECOMMENDATIONS FOR EXERCISING WITH TYPE 1 OR TYPE 2 DIABETES Check your blood glucose before exercising. If blood glucose levels are greater than 240 mg/dL, check for urine ketones. Do not exercise if ketones are present. Avoid injecting insulin into areas of the body that are going to be exercised. For example, avoid injecting insulin into: The arms when playing tennis. The legs when jogging. Keep a record of: Food intake before and after you exercise. Expected peak times of insulin action. Blood glucose levels before and after you exercise. The type and amount of exercise you have done. Review your records with your health care provider. Your health care provider will help you to develop guidelines for adjusting food intake and insulin amounts before and after exercising. If you take insulin or oral hypoglycemic agents, watch for signs and symptoms of hypoglycemia. They include: Dizziness. Shaking. Sweating. Chills. Confusion. Drink plenty of water while you exercise to prevent dehydration or heat stroke. Body water is lost during exercise and must be replaced. Talk to your health care provider before starting an exercise program to make sure it is safe for you. Remember, almost any type of activity is better than none. This information is not intended to replace advice given to you by your health care provider. Make sure you discuss any questions you have with your health care provider. Document Released: 12/28/2004 Document Revised: 07/27/2015 Document Reviewed: 03/17/2014 [employer] Patient Information 2015 [email or web address]. No follow up information was provided. Extracted from: Title: Office Visit Note Author: Julio Cesar Blue MD Date: 03/08/16 Assessment/Plan Controlled type 2 diabetes mellitus without complication Will follow up with a HgA1C. Ordered: Periodic Comp Preventive Med 65+ years Est 97977 Schizophrenia Continue with the current medications. Ordered: Periodic Comp Preventive Med 65+ years Est 21743
--- OUTSIDE RECORDS SUMMARY | 2017-09-10 11:01 | External Medical Summary | Referral Summary ---
:1950 Author Organization [facility] Address [address] [place] [address] [place] [phone] Care Team Providers Name Role Phone Julio Cesar Blue Primary Care Physician Encounter VC Date(s): 08/18/15 - 08/18/15 [facility] [address] [place] [phone] [place] Discharge Diagnosis: Delusional disorder Discharge Diagnosis: Essential tremor Discharge Diagnosis: Peripheral neuropathy Discharge Disposition: 01-Home or Self Care Attending Physician: Julio Cesar Blue MD Admitting Physician: Julio Cesar Blue MD Vital Signs Most recent to oldest [Reference Range]: 1 Blood Pressure [90-140/60-90 mmHg] 110/68 mmHg (08/18/15 1:43 PM) Problem List Condition Effective Dates Status Health Status Informant History of Overactive bladder,urinary Active frequency, and BPH w/prostatism(Confirmed) Schizophrenia(Confirmed) Active Dementia(Confirmed) Active [place] toxicity(Confirmed) Active Combined hyperlipidemia(Confirmed) Active Pancytopenia related [...] 90 Each, 3 Refill(s), Pharmacy: [facility] Start Date: 02/16/15 Status: OrderedCONTOUR TEST STRIPS See Instructions, TEST FASTING AND 2 HOURS AFTER SUPPER ON SUNDAY AND SUNDAY., # 100 strip, 1 Refill(s), eRx: [facility] #[id number], TEST FASTING AND 2 HOURS AFTER SUPPER ON SUNDAY AND SUNDAY. Start Date: 10/14/14 Status: OrdereddiphenhydrAMINE 25 mg oral capsule 1 caps, Oral, q4hr, as needed for rhinitis,non-prod cough, or allergy symptoms, 0 Refill(s) Start Date: 05/21/14 Status: OrderedDOK 100 mg oral capsule 100 mg 1 caps, Oral, BID, as needed for constipation, # 60 caps, 2 Refill(s), Pharmacy: [facility], 1 caps Oral BID,PRN:as needed for constipation [...] BID, 0 Refill(s) Start Date: 05/21/14 Status: GfpnlkeQhz-K-Gdwv oral tablet 1 tabs, Oral, Daily, # [...] Julio Cesar Blue MD Date: Family Medicine Tremor Tremor is a rhythmic, involuntary muscular contraction characterized by oscillations (to-and-fro movements) of a part of the body. The most common of all involuntary movements, tremor can affect various body parts such as the hands, head, facial structures, vocal cords, trunk, and legs; most tremors, however, occur in the hands. Tremor often accompanies neurological disorders associated with aging. Al though the disorder is not life-threatening, it can be responsible for functional disability and social embarrassment. TREATMENT There are many types of tremor and several ways in which tremor is classified. The most common classification is by behavioral context or position. There are five categories of tremor within this classi fication: resting, postural, kinetic, task-specific, and psychogenic. Resting or static tremor occurs when the muscle is at rest, for example when the hands are lying on the lap. This type of tremor is often seen in patients with Parkinson's disease. Postural tremor occurs when a patient attempts to maintain posture, such as holding the hands outstretched. Postural tremors include physiological tremor , essential tremor, tremor with basal ganglia disease (also seen in patients with Parkinson's disease), cerebellar postural tremor, tremor with peripheral neuropathy, post-traumatic tremor, and alcoholi c tremor. Kinetic or intention (action) tremor occurs during purposeful movement, for example during qpkcew-yb-epvf testing. Task-specific tremor appears when performing goal-oriented tasks such as hand writing, speaking, or standing. This group consists of primary writing tremor, vocal tremor, and orthostatic tremor. Psychogenic tremor occurs in both older and younger patients. The mcfarlane feature of this tremor is that it dramatically lessens or disappears when the patient is distracted. PROGNOSIS There are some treatment options available for tremor; the appropriate treatment depends on accurate diagnosis of the cause. Some tremors respond to treatment of the underlying condition, for example in some cases of psychogenic tremor treating the patient's underlying mental problem may cause the tremor to disappear. Also, patients with tremor due to Parkinson's disease may be treated with Levodopa d rug therapy. Symptomatic drug therapy is available for several other tremors as well. For those cases of tremor in which there is no effective drug treatment , physical measures such as teaching the rashad ent to brace the affected limb during the tremor are sometimes useful. Surgical intervention such as thalamotomy or deep brain stimulation may be useful in certain cases. Document Released: 09/28/2003 Document Revised: 12/30/2012 Document Reviewed: 10/08/2006 ExitCare Patient Information 2015 [facility]. This information is not intended to replace advice given to you by your health care provider. Make sure you discuss any questions you have with your health care provider. No follow up information was provided. Extracted from: Title: Office Visit Note Author: Julio Cesar Blue MD Date: 08/18/15 Assessment/Plan Delusional disorder, Delusional disorders Ordered: Office Visit Level 3 Est 77970 Essential tremor, Essential tremor Keep the appointment to see the Neurologist. Ordered: Office Visit Level 3 Est 15539 Peripheral neuropathy, Polyneuropathy, unspecified Would like to increase the Neurontin to bid and also treat a UTI with Septra DS bid for 10 days. Ordered: Office Visit Level 3 Est 28867
--- OUTSIDE RECORDS SUMMARY | 2017-09-10 11:01 | External Medical Summary | Referral Summary ---
:1950 Author Organization [facility] Address [address] [place] [address] [place] [phone] Care Team Providers Name Role Phone Julio Cesar Blue Primary Care Physician Encounter VC Date(s): 07/14/15 - 07/14/15 [facility] [address] [place] [phone] [place] Discharge Disposition: 01-Home or Self Care Attending Physician: Julio Cesar Blue MD Admitting Physician: Julio Cesar Blue MD Vital Signs Most recent to oldest [Reference Range]: 1 Temperature Tympanic [36.6-38.1 degC] 36.6 degC (07/14/15 10:59 AM) Peripheral Pulse Rate [60-100 bpm] 68 bpm (07/14/15 10:59 AM) Respiratory Rate [14-20 br/min] 20 br/min (07/14/15 10:59 AM) Blood Pressure [90-140/60-90 mmHg] 120/68 mmHg (07/14/15 10:59 AM) Problem List Condition Effective Dates Status Health Status Informant History of Overactive bladder,urinary Active frequency, and BPH w/prostatism(Confirmed) Schizophrenia(Confirmed) Active Dementia(Confirmed) Active [place] toxicity(Confirmed) Active Combined hyperlipidemia(Confirmed) Active Pancytopenia related [...] 90 Each, 3 Refill(s), Pharmacy: [facility] [place] Start Date: 02/16/15 Status: OrderedCONTOUR TEST STRIPS See Instructions, TEST FASTING AND 2 HOURS AFTER SUPPER ON SUNDAY AND SUNDAY., # 100 strip, 1 Refill(s), eRx: [facility] #[id number], TEST FASTING AND 2 HOURS AFTER SUPPER [...] BID, 0 Refill(s) Start Date: 05/21/14 Status: CncifhePte-S-Lgkg oral tablet 1 tabs, Oral, Daily, # [...] occurs during purposeful movement, for example during wwrecs-up-yzju testing. Task-specific tremor appears when performing goal-oriented [...] 09/28/2003 Document Revised: 12/30/2012 Document Reviewed: 10/08/2006 [facility] Patient Information 2015 [employer] [facility]. This information is not intended to replace advice given to you by your health care provider. Make sure you discuss any questions you have with your health care provider. No follow up information was provided. Extracted from: Title: Office Visit Note Author: Julio Cesar Blue MD Date: 07/14/15 Assessment/Plan Controlled type 2 diabetes mellitus without complication Continue with the current medications. Ordered: Office Visit Level 4 Est 60584 Dementia Ordered: Office Visit Level 4 Est 99969 Pill rolling tremors Start Propranolo 10mg bid and a consult a Neurologist to rule out Parkinsons. Ordered: Office Visit Level 4 Est 85982 Schizophrenia Ordered: Office Visit Level 4 Est 21915
--- OUTSIDE RECORDS SUMMARY | 2017-09-10 11:01 | External Medical Summary | Referral Summary ---
:1950 Author Organization [facility] Address [address] [place] [address] [place] [phone] Care Team Providers Name Role Phone Julio Cesar Blue Primary Care Physician Encounter VC Date(s): 08/04/15 - 08/04/15 [facility] [address] [place] [phone] [place] Discharge Diagnosis: Essential tremor Discharge Diagnosis: Schizophrenia Discharge Disposition: 01-Home or Self Care Attending Physician: Julio Cesar Blue MD Admitting Physician: Julio Cesar Blue MD Vital Signs Most recent to oldest [Reference Range]: 1 Peripheral Pulse Rate [60-100 bpm] 56 bpm *LOW* (08/04/15 9:22 AM) Blood Pressure [90-140/60-90 mmHg] 104/68 mmHg (08/04/15 9:22 AM) Problem List Condition Effective Dates Status Health Status Informant History of Overactive bladder,urinary Active frequency, and BPH w/prostatism(Confirmed) Schizophrenia(Confirmed) Active Dementia(Confirmed) Active [place] toxicity(Confirmed) Active Combined hyperlipidemia(Confirmed) Active Pancytopenia related [...] 90 Each, 3 Refill(s), Pharmacy: [facility] [place] Start Date: 02/16/15 Status: OrderedCONTOUR TEST STRIPS See Instructions, TEST FASTING AND 2 HOURS AFTER SUPPER ON SUNDAY AND SUNDAY., # 100 strip, 1 Refill(s), eRx: [facility] #[id number], TEST FASTING AND 2 HOURS AFTER SUPPER [...] BID, 0 Refill(s) Start Date: 05/21/14 Status: JekmvwtCfy-R-Frvx oral tablet 1 tabs, Oral, Daily, # [...] occurs during purposeful movement, for example during oszkgd-qu-hmgs testing. Task-specific tremor appears when performing goal-oriented [...] Document Reviewed: 10/08/2006 ExitCare Patient Information 2015 [employer] [facility]. This information is not intended to replace advice given to you by your health care provider. Make sure you discuss any questions you have with your health care provider. No follow up information was provided. Extracted from: Title: Office Visit Note Author: Julio Cesar Blue MD Date: 08/04/15 Assessment/Plan Essential tremor Will continue with the current medications. Will start Neurontin 300mg at bedtime which may help him sleep through the night. Keep appointment with the Neurologist. Ordered: Office Visit Level 4 Est 11379 Schizophrenia Ordered: Office Visit Level 4 Est 18557
--- OUTSIDE RECORDS SUMMARY | 2017-09-10 11:02 | External Medical Summary | Continuity of Care Document ---
:1950 Author Organization [facility] Allergies Active Description Code Type Severity Reaction Onset Reported/ Identified Relationship Clinical to Patient Status Yes No Known NKMA N/A N/A 05/21/2014 Allergies Medications Problems Date Dx Attending Type Code Diagnosis Diagnosed By Coded 09/19/2016 Julio Cesar Blue Final E11.9 Type 2 diabetes F mellitus without complications 09/19/2016 Julio Cesar Blue Final E78.2 Mixed hyperlipidemia F 09/19/2016 Julio Cesar Blue Final F03.90 Unspecified dementia F without behavioral disturbance 09/19/2016 Julio Cesar Blue Final F05 Delirium due to F known physiological condition 09/19/2016 Julio Cesar Blue Final F22 Delusional disorders F 09/19/2016 Julio Cesar Blue Final N32.81 Overactive bladder F 09/19/2016 Julio Cesar Blue Final F05 Delirium due to F known physiological condition 10/06/2016 Alfonzo, Final E11.51 Type 2 diabetes Liz M mellitus with diabetic peripheral angiopathy without gangrene 10/06/2016 Alfonzo, Final E11.621 Type 2 diabetes Liz M mellitus with foot ulcer 11/11/2016 Julio Cesar Blue Final E11.9 Type 2 diabetes F mellitus without complications 11/11/2016 Julio Cesar Blue Final F05 Delirium due to F known physiological condition 11/11/2016 Julio Cesar Blue Final F22 Delusional disorders F 12/19/2016 Julio Cesar Blue Final E11.9 Type 2 diabetes F mellitus without complications 12/19/2016 Julio Cesar Blue Final E78.00 Pure F hypercholesterolemia , unspecified 12/19/2016 Julio Cesar Blue Final Z12.5 Encounter for F screening for malignant neoplasm of prostate 12/19/2016 Julio Cesar Blue Final F22 Delusional disorders F 12/19/2016 Julio Cesar Blue Final I10 Essential (primary) F hypertension Procedures Code Description Performed By Performed On 03/08/2016 07949 Office or other outpatient visit for the evaluation and management of an established patient, which requires at least 2 of these 3 mcfarlane components: A detailed history; A detailed examination; Medical d 03/08/2016 23296 Periodic comprehensive preventive medicine reevaluation and management of an individual including an age and gender appropriate history, examination, counseling/anticipatory guidance/risk factor reduc 06/12/2016 88658 Office or other outpatient visit for the evaluation and management of an established patient, which requires at least 2 of these 3 mcfarlane components: A detailed history; A detailed examination; Medical d 09/19/2016 41140 Periodic comprehensive preventive medicine reevaluation and management of an individual including an age and gender appropriate history, examination, counseling/anticipatory guidance/risk factor reduc 10/06/2016 80860 Office or other outpatient visit for the evaluation and management of an established patient, which requires at least 2 of these 3 mcfarlane components: A detailed history; A detailed examination; Medical d 11/10/2016 18157 Office or other outpatient visit for the evaluation and management of an established patient, which requires at least 2 of these 3 mcfarlane components: An expanded problem focused history; An expanded prob 12/19/201685582 Office or other outpatient visit for the evaluation and management of an established patient, which requires at least 2 of these 3 mcfarlane components: A detailed history; A detailed examination; Medical d Results Encounters ACCT No. Visit Discharge Status Pt. Type Provider Facility Loc./Unit Complaint Date/Time [id number] 12/19/2016 12/19/2016 DIS Outpatida Blue, [facility] 3 mth F/U 21 10:10:00 23:59:00 t Julio Cesar [facility] [id number] 11/10/2016 11/10/2016 DIS Outpatida Blue, [facility] ER follow 29 13:28:00 23:59:00 marek Strauss up deep Clinic sleep [id number] 10/06/2016 10/06/2016 DIS Outpatien Hughcarloss [facility] Diabetic 20 09:01:00 23:59:00 Liz jara foot check M Clinic [id number] 09/19/2016 09/19/2016 DIS Outpatida Blue, [facility] DM check 46 13:13:00 23:59:00 marek [facility] [id number] 06/12/2016 06/12/2016 DIS Outpatien Mirza, Via [facility] New FM 3 month DM 84 10:22:00 23:59:00 t Julio Cesar Gutierrez [facility] check Clinic [id number] 03/08/2016 03/08/2016 DIS Outpatien Mirza, Via [facility] New FM Fu to check 71 13:52:00 23:59:00 t Julio Cesar Gutierrez [facility] diabetis [facility] [id number] 12/06/2015 12/06/2015 DIS Outpatien Mirza, Via [facility] New FM Annual 07 10:39:00 23:59:00 t Julio Cesar Gutierrez [facility] Physical [facility] [id number] 08/18/2015 08/18/2015 DIS Outpatien Mirza, Via [facility] New FM 2 Week 40 13:37:00 23:59:00 t Julio Cesar Gutierrez [facility] Recheck [facility] [id number] 08/12/2015 08/12/2015 DIS Outpatien Mirza, Via [facility] New FM FLU SHOT 05 09:05:00 23:59:00 t Julio Cesar Brenda [facility] [id number] 08/04/2015 08/04/2015 CLS Outpatida Blue, Via [facility] New FM 1 wk dwight 49 09:11:00 23:59:59 t Julio Cesar Gutierrez [facility] [id number] 07/14/2015 07/14/2015 DIS Outpatien Blue, Via [facility] New FM check for 28 10:56:00 23:59:00 t Julio Cesar Gutierrez [facility] possible Clinic neuropathy [id number] 01/08/2015 01/08/2015 DIS Outpatien Tandoc, Via [facility] New 6 month 36 15:31:00 23:59:00 marek Strauss Uro dwight T Clinic [id number] 11/24/2014 11/24/2014 DIS Outpatien Mirza, Via [facility] New FM physical/di 79 13:18:00 23:59:00 t Julio Cesar Brenda [facility] abetic Clinic check [id number] 03/31/2015 Document 31 11:11:00 Registrat ion [id number] 03/16/2015 Document 36 14:03:00 Registrat ion [id number] 02/04/2015 Document 15 10:16:00 Registrat ion
--- OUTSIDE RECORDS SUMMARY | 2017-09-10 11:02 | External Medical Summary | Referral Summary ---
:1950 Author Organization [facility] Address [address] [place] [address] [place] [id number] Care Team Providers Name Role Phone Julio Cesar Blue Primary Care Physician Encounter VC Date(s): 08/04/15 - 08/04/15 [facility] [address] [place] [phone]- [place] Discharge Diagnosis: [...] and BPH w/prostatism(Confirmed) Schizophrenia(Confirmed) Active Dementia(Confirmed) Active Marcellus toxicity(Confirmed) Active Combined hyperlipidemia(Confirmed) Active Pancytopenia related [...] 90 Each, 3 Refill(s), Pharmacy: [facility] Start Date: 02/16/15 Status: OrderedCONTOUR TEST STRIPS See Instructions, TEST FASTING AND 2 HOURS AFTER SUPPER ON SUNDAY AND SUNDAY., # 100 strip, 1 Refill(s), eRx: [facility] #[id number], TEST FASTING AND 2 HOURS AFTER SUPPER [...] tabs, Oral, BID, # 60 tabs, 0 Refill(s) Start Date: 08/04/15 Status: OrderedRisperDAL 0.5 mg oral tablet 1 [...] BID, 0 Refill(s) Start Date: 05/21/14 Status: LslagsvWij-D-Jfju oral tablet 1 tabs, Oral, Daily, # [...] occurs during purposeful movement, for example during [id number] testing. Task-specific tremor appears when performing goal-oriented [...] 09/28/2003 Document Revised: 12/30/2012 Document Reviewed: 10/08/2006 [facility] Patient Information 2015 [employer] [facility]. This information is not intended to replace [...] Neurologist. Ordered: Office Visit Level 4 Est 29166 Schizophrenia Ordered: Office Visit Level 4 Est 79961
[2017-09-10] MEDS ORDERED: CEFTRIAXONE (ER USE ONLY) 1 GM in NS 100 ML IV ONE (12:32)
[2017-09-10] MEDS: SALINE FLUSH 10ml SYRINGE IVF PRN (12:39)
--- NOTE | 2017-09-10 13:56 | History & Physical Report ---
History of Present Illness Date: 09/10/17 Chief complaint: "Here for a physical" HPI: Mac Werner is a 66-year-old male, resident of [facility], with a history of moderate MR, schizophrenia, CAD, pacemaker for complete heart block, type 2 diabetes mellitus. Mac is not the best historian, and reports that tears here in the hospital for a "physical" and to have his "heart checked", as he tapped his pacemaker site. Mac denies any weakness or fatigue, dizziness, chest pain, palpitations, difficulty breathing, fevers or chills, cough or congestion, abdominal pain, dysphagia, changes in appetite, nausea, vomiting, diarrhea or constipation, problems urinating, rashes, paresthesias, injuries, or recent falls. Staff at [facility] found him slumped over in a chair, nonresponsive. They were concerned that he may have taken another resident's medications, because he had a decreased LOC, which prompted the emergency department visit on 09/10/17. He was also hypotensive and hypoxic with sats in the 70s. He rapidly improved. He was somnolent in the ED, though his vital signs were stable. Labs are showing leukopenia with a white count of 4.1, mild anemia with hemoglobin of 11.9, elevated d-dimer at 312, mild hyperkalemia with potassium of 5.2, elevated BUN of 54, creatinine higher than baseline at 1.4, elevated BUN/creatinine ratio at 39, negative troponin, negative pro calcitonin. Initial lactate was greater than 2.1, but on recheck it was 1.3. Chest x-ray was negative. EKG was unremarkable. He received normal saline 500 cc bolus, as well as Rocephin 1 g IV in the emergency department. However, his LOC minimally improved, and staff did not feel comfortable taking him back to [facility] in this condition. He was therefore admitted to the hospitalist service as an observation patient. Review of Systems All systems PM: 10-point ROS was reviewed, no additional remarkable complaints except - Constitutional Constitutional: Present: as per HPI - EENMT Eyes: Absent: change in vision Nose: Present: as per HPI Mouth/Throat: Present: as per HPI - Cardiovascular Cardiovascular: Present: as per HPI - Respiratory Respiratory: Present: as per HPI - Gastrointestinal Gastrointestinal: Present: as per HPI - Genitourinary Genitourinary: Present: as per HPI - Musculoskeletal Musculoskeletal: Present: as per HPI - Integumentary/Breasts Integumentary: Present: as per HPI - Neurological Neurological: Present: as per HPI - Psychiatric Psychiatric: Present: as per HPI - Hematologic/Lymphatic Hematologic/Lymphatic: Present: other (denies bruising or bleeding) PFSH Coronary artery disease. Complete heart block, status post pacemaker. Type 2 diabetes. Hyperlipidemia. Hypothyroidism. Moderate MR. Schizophrenia - very compulsive in cleanliness. Narcolepsy. Overactive bladder. Mild BPH. Cataracts. Myopia. Degenerative joint disease. 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 Minimal sleep disordered breathing Normocytic anemia, mild. Surgical History: 1. Right knee arthroscopy and meniscectomy: 11/02/1997. 2. Cystoscopy with uretheral dilation: 03/11/2002. 3. Colonoscopy: 07/28/2004. 4. Biopsy from right lateral tongue classified as nonspecific ulcer, 2008. 5. Dental extractions 2009 and 2015. 6. Heart catheterization with drug-eluting stent placed to LAD, 06/13/17. 7. Dual-chamber pacemaker implant for symptomatic bradycardia due to complete heart block, 06/14/17 Family History: Patient was adopted. - Social History Smoking status: Never smoker Substance use type: does not use Alcohol intake frequency: does not drink Current residence: [facility] Social history: Primary care physician: Dr. Dinero Crepe Laminator Operator: Dr. Wilson. Medications Home Medications Medication Instructions Recorded Confirmed Type Vitamin B Complex 1 cap PO DAILY #0 03/09/12 09/10/17 History Docusate Sodium [Dok] 100 mg PO BID #0 10/31/16 09/10/17 History Gabapentin 300 mg PO BIDBL #0 10/31/16 09/10/17 History Guaifenesin/Dextromethorphan 10 ml PO Q4H PRN #0 10/31/16 09/10/17 History [Tussin Dm Liquid] Levothyroxine Sodium 50 mcg PO DAILY #0 10/31/16 09/10/17 History Loperamide [Imodium] 2 mg PO QID PRN #0 10/31/16 09/10/17 History Loxapine Succinate [Loxapine] 5 mg PO BID #0 10/31/16 09/10/17 History Magnesium Hydroxide [Milk of 30 ml PO DAILY PRN #0 10/31/16 09/10/17 History Magnesia] Metformin HCl 500 mg PO DAILY #0 10/31/16 09/10/17 History Multivitamin [Tab-A-Claire] 1 tab PO DAILY #0 10/31/16 09/10/17 History Paliperidone [Invega] 9 mg PO 1800 #0 10/31/16 09/10/17 History Sennosides/Docusate Sodium [Sm 2 tab PO BID PRN #0 10/31/16 09/10/17 History Senna-S Tablet] diphenhydrAMINE HCl 25 mg PO Q4H PRN #0 10/31/16 09/10/17 History [Diphenhydramine HCl] Gabapentin 600 mg PO HS 06/13/17 09/10/17 History Acetaminophen [Acetaminophen Extra 1,000 mg PO Q4H PRN 09/10/17 09/10/17 History Strength] Acetaminophen [Acetaminophen Extra 1,000 mg PO TID 09/10/17 09/10/17 History Strength] Calcium Carbonate [Calcium] 1,000 mg PO Q4H PRN 09/10/17 09/10/17 History Carbidopa/Levodopa 1 tab PO QID/E 09/10/17 09/10/17 History [Carbidopa-Levodopa 25-100 Tab] Ferrous Sulfate, Dried [Slow 160 mg PO DAILY 09/10/17 09/10/17 History Release Iron] Ibuprofen 400 mg PO Q4H PRN 09/10/17 09/10/17 History Mag Hydrox/Aluminum Hyd/Simeth 20 ml PO Q4H PRN 09/10/17 09/10/17 History [Maalox Advanced Suspension] Meloxicam [Meloxicam] 15 mg PO DAILY 09/10/17 09/10/17 History Pseudoephedrine [Sudafed] 30 mg PO BID PRN 09/10/17 09/10/17 History RisperiDONE [RisperDAL] 0.5 mg PO Q4H PRN 09/10/17 09/10/17 History Triamterene/Hctz 37.5/25 Tab 0.5 tab PO DAILY 09/10/17 09/10/17 History [MAXZIDE-25 eqv] Allergies Allergy/AdvReac Type Severity Reaction Status Date / Time No Known Allergies Allergy Verified 09/10/17 09:42 Exam Vital Signs: Temperature 97.6 F 09/10/17 08:50 Pulse Rate 62 09/10/17 13:15 Respiratory Rate 21 09/10/17 13:15 Blood Pressure 154/92 H 09/10/17 13:15 Pulse Oximetry 99 09/10/17 13:15 - Constitutional Present: no acute distress, well nourished, well developed, other (drowsy) - Routine HEENT Exam Head: Present: atraumatic Eye: Present: cataracts ENT: Present: mucous membranes moist, oropharynx clear. Absent: dentition normal (multiple missing teeth) - Routine Neck Exam Present: supple - Routine Respiratory Exam Present: CTA bilaterally - Routine Cardiovascular Exam Present: RRR, S1, S2 Comments: PPM Left anterior chest - Routine Abdominal Exam Present: soft, normoactive bowel sounds, non distended, non tender - Routine Extremities Exam Present: no edema - Routine Skin Exam Present: intact, dry, warm - Routine Neurological Exam Present: alert, CN II-XII intact (grossly intact), motor deficit (extremities are weak but equal bilaterally), altered mental status (mildly drowsy), moving all extremities, hearing grossly intact. Absent: sensory deficit, facial asymmetry Results - Labs CBC & Chem 7: 09/10/17 09:57 09/10/17 09:57 - ECG Data Tracing #1 Normal sinus rhythm, rate 77. ST depression seen in inferior leads is likely due to artifact - inconsistently noted and baseline waveform is slightly variable Normal axis Abnormal R-wave progression - Imaging and Cardiology Chest x-ray Status: image reviewed by me Additional comments: Poor inspiratory effort. Left basilar atelectasis. High-riding right humeral head. Also seen on chest x-ray from 06/15/17. CT scan - head Status: image reviewed by me Additional comments: No acute findings; Atrophy, age-related; small vessel ischemic disease changes Assessment and Plan (1) Mental status, decreased Current visit: Yes Status: Acute (2) Renal insufficiency Current visit: Yes Status: Acute Assessment and Plan: Admission diagnoses: Dehydration with acute renal insufficiency and hyperkalemia. Baseline creatinine is 1.0. Altered mental status, decreased LOC. Possible accidental ingestion of another resident's medications. Elevated d-dimer, asymptomatic. Hyperlactatemia, resolved. Bacterial infection is not suspected. Hypotension and Hypoxia, POA, resolved. Comorbid conditions: Coronary artery disease, status post drug-eluting stent to LAD, 06/13/17 Complete heart block, status post pacemaker placement 06/14/17. Type 2 diabetes. Hemoglobin A1c was 6.7% on 06/13/17. Hyperlipidemia. Hypothyroidism. Moderate MR. Schizophrenia - very compulsive in cleanliness. Narcolepsy. Overactive bladder. Mild BPH. Cataracts. Myopia. Degenerative joint disease. 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 Minimal sleep disordered breathing. Plan: Admit, observation status. PCP: Dr. Dinero. Dehydration with acute renal insufficiency and hyperkalemia -IV fluids: Normal saline at 100 miles per hour 1 L. -Repeat BMP in a.m. -Hold nephrotoxic meds - Maxzide, Metformin, & Mobic. Altered mental status with decreased LOC. -Neuro checks. -IVF. -UDS - pending. Elevated d-dimer -Continuous pulse ox. -Asymptomatic. No leg edema to suggest DVT. Elevated lactate -possibly 2/2 hypoxia/hypotension INBOUND TELEMARKETER -No suspected bacterial infection to suggest severe sepsis. CXR and UA were negative. -Resolved after 500 mL fluid bolus. -consider holding metformin. CAD/HLD/HTN -tele -check serial trop (as pt is poor historian and had fairly recent LAD stent) -home meds DM2 -Monitor blood glucose fasting & 2 hours postprandial. -holding metformin -SSI S: Pt reports he's doing great and has no complaints. Denies any n/v/d, f/c, cp or sob. O: Gen: alert and oriented Cards: RRR without murmurs Lungs: CTAB, no wheezes Abd: soft, non-tender, non-distended Skin: dry, intact A/P: Pt seems to be at baseline. Likely pt took someone's else's meds by mistake and had temporarily drowsiness and hypotension which caused the hypoxemia and lactic acid. But repeat labs show that has resolved and pt is on RA. Will monitor for now and give IV fluids as he seems dehydrated. DVT Prophylaxis: SCD's Resuscitation Status: Full Code Hospital Course Summary Disclaimer: The visit summary below is not to be considered part of the above Progress Note. Hospital Course: 09/10/17 Admitted to observation status after an unresponsive, hypotensive, and hypoxic episode at [facility]. Initial lactate was 2.3, but this cleared with IVF. Hemodynamically stable on admission. Elevations in BUN/creatinine suggesting dehydration and IVF were administered. Monitored on tele; neuro checks ordered.
[2017-09-10] MEDS ORDERED: NS 1,000 ML IV SCH (14:30)
[2017-09-10] MEDS ORDERED: SENNA + DOCUSATE TABLET PO PRN (14:47)
[2017-09-10] MEDS ORDERED: RisperiDONE 0.5 MG TABLET PO PRN (14:47)
[2017-09-10] MEDS ORDERED: ACETAMINOPHEN 500 MG PO PRN (14:47)
[2017-09-10 14:53] VITALS: BMI 26.2
[2017-09-10] MEDS: METOPROLOL TARTRATE 25mg TAB - PT OWN PO SCH (17:50)
[2017-09-10] MEDS: CARBIDOPA PO SCH ×2 (17:50→20:03)
[2017-09-10] MEDS: LEVODOPA PO SCH ×2 (17:50→20:03)
[2017-09-10] MEDS ORDERED: PALIPERIDONE ER 1.5mg TAB PO SCH (18:00)
[2017-09-10] MEDS: PALIPERIDONE 9 MG PO SCH (18:09)
[2017-09-10] MEDS: ATORVASTATIN 40 MG PO SCH (20:02)
[2017-09-10] MEDS: LOXAPINE 5 MG PO SCH (20:04)
[2017-09-10] MEDS: GABAPENTIN 300 MG CAP - PT OWN PO SCH (20:04)
[2017-09-10] MEDS: DOCUSATE SODIUM 100 MG CAP - PT OWN PO SCH (20:04)
[2017-09-11] MEDS: LEVODOPA PO SCH ×4 (06:32→20:43)
[2017-09-11] MEDS: LEVOTHYROXINE 50 MCG PO SCH (06:32)
[2017-09-11] MEDS: CARBIDOPA PO SCH ×4 (06:32→20:43)
[2017-09-11] MEDS: FERROUS SULFATE 324 MG TABLET PO SCH (08:32)
[2017-09-11] MEDS: GABAPENTIN 300 MG CAP - PT OWN PO SCH ×3 (08:34→20:44)
[2017-09-11] MEDS: METOPROLOL TARTRATE 25mg TAB - PT OWN PO SCH ×2 (08:34→16:54)
[2017-09-11] MEDS: ASPIRIN *EC* 81 MG TAB - PT OWN PO SCH (08:35)
[2017-09-11] MEDS: CLOPIDOGREL 75 MG PO SCH (08:35)
[2017-09-11] MEDS: DOCUSATE SODIUM 100 MG CAP - PT OWN PO SCH ×2 (08:35→20:43)
[2017-09-11] MEDS: B COMPLEX PO SCH (08:36)
[2017-09-11] MEDS: LOXAPINE 5 MG PO SCH ×2 (08:36→20:44)
[2017-09-11] MEDS ORDERED: NS 1,000 ML IV ONE (12:59)
--- NOTE | 2017-09-11 13:12 | Progress Note ---
- Date 09/11/17 Subjective: Pt reports some nausea but otherwise denies any acute complaints. Denies any cp , sob, n/v/d, f/c. Pt is sitting in chair today. Objective Vital signs: Temperature 99.4 F 09/11/17 07:35 Pulse Rate 69 09/11/17 08:00 Respiratory Rate 18 09/11/17 07:35 Blood Pressure 112/63 09/11/17 07:35 Pulse Oximetry 95 09/11/17 07:35 Height/Weight/BMI: Height 5 ft 1 in Weight 61.2 kg Body Mass Index 26.2 - Constitutional Present: no acute distress - Routine HEENT Exam Head: Present: normocephalic, atraumatic Eye: Present: EOMI - Routine Respiratory Exam Present: CTA bilaterally. Absent: dyspnea - Routine Cardiovascular Exam Present: RRR, no murmur - Routine Abdominal Exam Present: soft, non distended, non tender - Routine Extremities Exam Present: no edema. Absent: cyanosis, clubbing - Routine Skin Exam Present: intact, dry. Absent: cyanosis - Routine Neurological Exam Present: alert Results - Labs CBC & Chem 7: 09/11/17 04:30 09/11/17 09:26 Assessment and Plan (1) Mental status, decreased Current visit: Yes Status: Acute (2) Renal insufficiency Current visit: Yes Status: Acute Assessment and Plan: Hypotension/Hypoxia/Confusion -All resolved at time of admission -Pt likely ingested wrong meds and had side effects which resolved ANDREINA -Improving -Likely pre-renal, high BUN/Cr ratio -Cont. IV fluids -Hold nephrotoxic meds - Maxzide, Metformin, & Mobic. Mild Hyperkalemia -Not acidotic, ANDREINA has resolved -Unclear etiology, will check cpk -If persists then can do further work up Lactic Acidosis -Resolved -Likely 2/2 hypoxia/hypotension pt experienced before admission -No suspected bacterial infection to suggest severe sepsis. CXR and UA were negative. CAD/HLD/HTN -tele, trop neg -Cont. home ASA, Atorvastatin, plavix, metoprolol -Hx of complete heart block-->s/p pacemaker DM2 -Monitor blood glucose fasting & 2 hours postprandial. -holding metformin, A1c was 6.7% on 06/13/17 -SSI Hypothyroid -Cont. home levo Dementia?/Schizo/MR -Cont. home Risperidone, Carbidopa/levidopa DVT Ppx -lovenox Hospital Course Summary Disclaimer: The visit summary below is not to be considered part of the above Progress Note. Hospital Course: 09/10/17 Admitted to observation status after an unresponsive, hypotensive, and hypoxic episode at [facility]. Initial lactate was 2.3, but this cleared with IVF. Hemodynamically stable on admission. Elevations in BUN/creatinine suggesting dehydration and IVF were administered. Monitored on tele; neuro checks ordered.
[2017-09-11] MEDS: INSULIN ASPART 100unit/ml INJECTION SQ PRN ×2 (14:18→20:45)
[2017-09-11] MEDS: PALIPERIDONE 9 MG PO SCH (17:04)
[2017-09-11] MEDS: ATORVASTATIN 40 MG PO SCH (20:42)
[2017-09-11 23:47] VITALS: TEMP 97.8
[2017-09-12] MEDS: LEVOTHYROXINE 50 MCG PO SCH (06:23)
[2017-09-12] MEDS: CARBIDOPA PO SCH (06:23)
[2017-09-12] MEDS: LEVODOPA PO SCH (06:23)
[2017-09-12] MEDS: SALINE FLUSH 10ml SYRINGE IVF PRN (06:23)
[2017-09-12] MEDS: DOCUSATE SODIUM 100 MG CAP - PT OWN PO SCH (08:38)
[2017-09-12] MEDS: GABAPENTIN 300 MG CAP - PT OWN PO SCH (08:38)
[2017-09-12] MEDS: ASPIRIN *EC* 81 MG TAB - PT OWN PO SCH (08:38)
[2017-09-12] MEDS: METOPROLOL TARTRATE 25mg TAB - PT OWN PO SCH (08:38)
[2017-09-12] MEDS: FERROUS SULFATE 324 MG TABLET PO SCH (08:38)
[2017-09-12] MEDS: CLOPIDOGREL 75 MG PO SCH (08:38)
[2017-09-12] MEDS: B COMPLEX PO SCH (08:39)
[2017-09-12] MEDS: LOXAPINE 5 MG PO SCH (08:39)
[2017-09-12] MEDS ORDERED: ENOXAPARIN 40 MG/0.4 ML INJECTION SQ SCH (09:00)
[2017-09-12 09:11] VITALS: BP 130/84; PULSE 65; RESP 14; O2SAT 97
--- NOTE | 2017-09-12 10:06 | Discharge Summary ---
Discharge Information Date of admission: 09/11/17 14:48 Anticipated date of discharge: 09/12/17 Attending Physician: Krishan Talavera MD Primary care physician: Rose Dinero MD - Discharge Diagnosis (1) Mental status, decreased Status: Acute (2) Renal insufficiency Status: Acute - Laboratory Labs: 09/12/17 04:22 History of Present Illness HPI: Mac Werner is a 66-year-old male, resident of [facility], with a history of moderate MR, schizophrenia, CAD, pacemaker for complete heart block, type 2 diabetes mellitus. Mac is not the best historian, and reports that tears here in the hospital for a "physical" and to have his "heart checked", as he tapped his pacemaker site. Watts denies any weakness or fatigue, dizziness, chest pain, palpitations, difficulty breathing, fevers or chills, cough or congestion, abdominal pain, dysphagia, changes in appetite, nausea, vomiting, diarrhea or constipation, problems urinating, rashes, paresthesias, injuries, or recent falls. Staff at [facility] found him slumped over in a chair, nonresponsive. They were concerned that he may have taken another resident's medications, because he had a decreased LOC, which prompted the emergency department visit on 09/10/17. He was also hypotensive and hypoxic with sats in the 70s. He rapidly improved. He was somnolent in the ED, though his vital signs were stable. Labs are showing leukopenia with a white count of 4.1, mild anemia with hemoglobin of 11.9, elevated d-dimer at 312, mild hyperkalemia with potassium of 5.2, elevated BUN of 54, creatinine higher than baseline at 1.4, elevated BUN/creatinine ratio at 39, negative troponin, negative pro calcitonin. Initial lactate was greater than 2.1, but on recheck it was 1.3. Chest x-ray was negative. EKG was unremarkable. He received normal saline 500 cc bolus, as well as Rocephin 1 g IV in the emergency department. However, his LOC minimally improved, and staff did not feel comfortable taking him back to [facility] in this condition. He was therefore admitted to the hospitalist service as an observation patient. Objective Vital signs: Temperature 97.8 F 09/12/17 08:00 Pulse Rate 65 09/12/17 08:00 Respiratory Rate 14 11/22/17 08:00 Blood Pressure 130/84 09/12/17 08:00 Pulse Oximetry 97 09/12/17 08:00 Height/Weight/BMI: Weight 61 kg - Constitutional Present: no acute distress - Routine HEENT Exam Head: Present: normocephalic, atraumatic Eye: Present: EOMI - Routine Respiratory Exam Present: CTA bilaterally. Absent: dyspnea - Routine Cardiovascular Exam Present: RRR, no murmur - Routine Abdominal Exam Present: soft, non tender. Absent: rebound, guarding - Routine Extremities Exam Present: no edema. Absent: cyanosis, clubbing - Routine Skin Exam Present: intact, dry. Absent: erythema - Routine Neurological Exam Present: alert, oriented X3 Hospital Course This is a general summary of the patient's hospital course. For more details refer to the complete medical record. Hospital course: 09/10/17 Admitted to observation status after an unresponsive, hypotensive, and hypoxic episode at [facility]. Initial lactate was 2.3, but this cleared with IVF. Hemodynamically stable on admission. Elevations in BUN/creatinine suggesting dehydration and IVF were administered. Monitored on tele; neuro checks ordered. Summary Pt was admitted due to somnolence, hypotension and hypoxia as he was found by staff at [facility]. But on admission pt was back to baseline and doing well. Pt received IV fluids and not much else was done. His vitals and labs were mostly unremarkable. Pt did have borderline high potassium but in reviewing his previous records, pt seems to have potassium on the high end of normal at baseline. The etiology of initial presentation was thought to be pt taking the wrong medications likely [facility] the [facility]. Plan was [facility] today and check labs on Sunday to monitor potassium. Discharge Plan - Discharge Disposition Discharge Date: 09/12/17 Disposition: 01 Discharged Home, Self-Care *Condition: Stable for Transport Reason For Visit (Visit label in EMR): altered mental status - Discharge Medications *Discharge Medications: Continue Vitamin B Complex 1 cap PO DAILY #0 Docusate Sodium [Dok] 100 mg PO BID #0 Gabapentin 300 mg PO BIDBL #0 Loxapine Succinate [Loxapine] 5 mg PO BID #0 Guaifenesin/Dextromethorphan [Tussin Dm Liquid] 10 ml PO Q4H PRN #0 PRN Reason: COUGH Gabapentin 600 mg PO HS Atorvastatin [Lipitor] 40 mg PO HS #30 tab Clopidogrel [Plavix] 75 mg PO DAILY #30 tab Aspirin *EC* [Ecotrin] 81 mg PO DAILY #100 tab Nitroglycerin [Nitrostat] 0.4 mg SL Q5MIN3 PRN #25 tab PRN Reason: Angina RisperiDONE [RisperDAL] 0.5 mg PO Q4H PRN PRN Reason: Anxiety/Agitation Acetaminophen [Acetaminophen Extra Strength] 1,000 mg PO Q4H PRN PRN Reason: Pain Calcium Carbonate [Calcium] 1,000 mg PO Q4H PRN PRN Reason: Heartburn Triamterene/Hctz 37.5/25 Tab [MAXZIDE-25 eqv] 0.5 tab PO DAILY Ferrous Sulfate, Dried [Slow Release Iron] 160 mg PO DAILY Carbidopa/Levodopa [Carbidopa-Levodopa 25-100 Tab] 1 tab PO QID/E Paliperidone [Invega] 9 mg PO 1800 #0 Levothyroxine Sodium 50 mcg PO DAILY #0 Metformin HCl 500 mg PO DAILY #0 Multivitamin [Tab-A-Claire] 1 tab PO DAILY #0 Loperamide [Imodium] 2 mg PO QID PRN #0 PRN Reason: DIARRHEA Sennosides/Docusate Sodium [Sm Senna-S Tablet] 2 tab PO BID PRN #0 PRN Reason: CONSTIPATION Magnesium Hydroxide [Milk of Magnesia] 30 ml PO DAILY PRN #0 PRN Reason: CONSTIPATION Metoprolol Tartrate [Lopressor] 25 mg PO BIDWM #60 tab Mag Hydrox/Aluminum Hyd/Simeth [Maalox Advanced Suspension] 20 ml PO Q4H PRN PRN Reason: Heartburn Meloxicam 15 mg PO DAILY No Action diphenhydrAMINE HCl [Diphenhydramine HCl] 25 mg PO Q4H PRN #0 PRN Reason: ALLERY SYMPTOMS Acetaminophen [Acetaminophen Extra Strength] 1,000 mg PO TID Ibuprofen 400 mg PO Q4H PRN PRN Reason: Pain Pseudoephedrine [Sudafed] 30 mg PO BID PRN PRN Reason: Nasal Congestion - Discharge Packet/Instructions *Diet: Regular as tolerated *Activity: As tolerated Additional Instructions: Patient needs renal panel on 09/14 to check potassium levels *Expected Signs/Symptoms: NA *Notify Physician if: Change in mentation, fever/chills *During Business Hours Contact: Primary care doctor *After Business Hours Contact: ED/urgent care *Pending Lab/Results: No Pending Lab - Referrals/Follow Up - Patient Handouts - Dismissal Complete Discharge Instructions are:: Complete
[2017-09-12] MEDS: INSULIN ASPART 100unit/ml INJECTION SQ PRN (10:50)
== END 2017-09-12 11:30 | disposition home or self-care (01) | DRG 315 ==
LOC: ED 08:49 → MED 08:49
PROVIDERS: ADMIT Internal Medicine; ATTEND Internal Medicine

== ENCOUNTER 2017-09-29 08:50 | Observation (INO) ==
--- OUTSIDE RECORDS SUMMARY | 2017-09-29 09:22 | External Medical Summary | Continuity of Care Document ---
:1950 Author Organization Via [facility] Allergies Active Description Code Type Severity Reaction [...] Code Description Performed By Performed On 03/08/2016 23842 Office or other outpatient visit for the evaluation and management of an established patient, which requires at least 2 of these 3 mcfarlane components: A detailed history; A detailed examination; Medical d 03/08/2016 87328 Periodic comprehensive preventive medicine reevaluation and management of an individual including an age and gender appropriate history, examination, counseling/anticipatory guidance/risk factor reduc 06/12/2016 34629 Office or other outpatient visit for the evaluation and management of an established patient, which requires at least 2 of these 3 mcfarlane components: A detailed history; A detailed examination; Medical d 09/19/2016 40575 Periodic comprehensive preventive medicine reevaluation and management of an individual including an age and gender appropriate history, examination, counseling/anticipatory guidance/risk factor reduc 10/06/2016 93898 Office or other outpatient visit for the evaluation and management of an established patient, which requires at least 2 of these 3 mcfarlane components: A detailed history; A detailed examination; Medical d 11/10/2016 21982 Office or other outpatient visit for the evaluation and management of an established patient, which requires at least 2 of these 3 mcfarlane components: An expanded problem focused history; An expanded prob 12/19/201630545 Office or other outpatient visit for the evaluation and management of an established patient, which requires at least 2 of these 3 mcfarlane components: A detailed history; A detailed examination; Medical d Results Encounters ACCT No. Visit Discharge Status Pt. Type Provider Facility Loc./Unit Complaint Date/Time [id number] 12/19/2016 12/19/2016 DIS Outpatida Blue, [facility] 3 mth F/U 21 10:10:00 23:59:00 t Julio Cesar Strauss [facility] [id number] 11/10/2016 11/10/2016 DIS Outpatida Blue, [facility] ER follow 29 13:28:00 23:59:00 marek Strauss up deep Clinic sleep [id number] 10/06/2016 10/06/2016 DIS Outpatien Hughcarloss [facility] Diabetic 20 09:01:00 23:59:00 Liz jara foot check M Clinic [id number] 09/19/2016 09/19/2016 DIS Outpatida Blue, [facility] DM check 46 13:13:00 23:59:00 marek Strauss Clinic [id number] 06/12/2016 06/12/2016 DIS Outpatien Mirza, [facility] New FM 3 month DM 84 10:22:00 23:59:00 t Julio Cesar Gutierrez [facility] check [facility] [id number] 03/08/2016 03/08/2016 DIS Outpatien Mirza, [facility] New FM Fu to check 71 13:52:00 23:59:00 t Julio Cesar Gutierrez [facility] diabetis [facility] [id number] 12/06/2015 12/06/2015 DIS Outpatien Mirza, [facility] New FM Annual 07 10:39:00 23:59:00 t Julio Cesar Gutierrez [facility] [id number] 08/18/2015 08/18/2015 DIS Outpatien Mirza, [facility] New FM 2 Week 40 13:37:00 23:59:00 t Julio Cesar Gutierrez [facility] Recheck [facility] [id number] 08/12/2015 08/12/2015 DIS Outpatien Mirza, [facility] New FM FLU SHOT 05 09:05:00 23:59:00 t Julio Cesar Brenda [facility] [id number] 08/04/2015 08/04/2015 CLS Outpatida Blue, [facility] New FM 1 wk dwight 49 09:11:00 23:59:59 t Julio Cesar Gutierrez [facility] [id number] 07/14/2015 07/14/2015 DIS Outpatien Blue, [facility] New FM check for 28 10:56:00 23:59:00 t Julio Cesar Gutierrez [facility] possible Clinic neuropathy [id number] 01/08/2015 01/08/2015 DIS Outpatien Tandoc, [facility] New 6 month 36 15:31:00 23:59:00 marek Strauss Uro dwight T Clinic [id number] 11/24/2014 11/24/2014 DIS Outpatien Mirza, [facility] New FM physical/di 79 13:18:00 23:59:00 t Julio Cesar Brenda [facility] abetic Clinic check [id number] 03/31/2015 Document 31 11:11:00 Registrat ion [id number] 03/16/2015 Document 36 14:03:00 Registrat ion [id number] 02/04/2015 Document 15 10:16:00 Registrat ion
--- NOTE | 2017-09-29 10:16 | Emergency Department Report ---
General Adult HPI - General Chief complaint: Medical Emergency Stated complaint: given wrong meds Time Seen by Provider: 09/29/17 09:10 - History of Present Illness HPI narrative: 66-year-old gentleman who lives at [facility]. He was given the wrong patient's medications this morning. I am not certain if he was also given his own. He initially presents stating that his head feels funny. He does have mild MR and has difficulty expressing some thoughts. The list of medications which she was given include Carafate 1 g, carbamazepine 200 mg, divalproex 500 mg, lisinopril 20 mg, metoprolol 100 mg, sertraline 200 mg, verapamil ER 120 mg, and Metamucil. He normally takes only 25 mg of metoprolol and does not take the other blood pressure medications. He also is not taking the carbamazepine for the divalproex. Initial vitals are stable. - Related Data Home Medications Medication Instructions Recorded Confirmed Vitamin B Complex 1 cap PO DAILY #0 03/09/12 09/29/17 Docusate Sodium [Dok] 100 mg PO BID #0 10/31/16 09/29/17 Gabapentin 300 mg PO BIDBL #0 10/31/16 09/29/17 Guaifenesin/Dextromethorphan 10 ml PO Q4H PRN #0 10/31/16 09/29/17 [Tussin Dm Liquid] Levothyroxine Sodium 50 mcg PO ACB #0 10/31/16 09/29/17 Loperamide [Imodium] 2 mg PO QID PRN #0 10/31/16 09/29/17 Loxapine Succinate [Loxapine] 5 mg PO BID #0 10/31/16 09/29/17 Magnesium Hydroxide [Milk of 30 ml PO DAILY PRN #0 10/31/16 09/29/17 Magnesia] Metformin HCl 500 mg PO DAILY #0 10/31/16 09/29/17 Multivitamin [Tab-A-Claire] 1 tab PO DAILY #0 10/31/16 09/29/17 Paliperidone [Invega] 9 mg PO 1800 #0 10/31/16 09/29/17 Sennosides/Docusate Sodium [Sm 2 tab PO BID PRN #0 10/31/16 09/29/17 Senna-S Tablet] diphenhydrAMINE HCl 25 mg PO Q4H PRN #0 10/31/16 09/29/17 [Diphenhydramine HCl] Gabapentin 600 mg PO HS 06/13/17 09/29/17 Acetaminophen [Acetaminophen Extra 1,000 mg PO Q4H PRN 09/10/17 09/29/17 Strength] Acetaminophen [Acetaminophen Extra 1,000 mg PO TID 09/10/17 09/29/17 Strength] Calcium Carbonate [Calcium] 1,000 mg PO Q4H PRN 09/10/17 09/29/17 Carbidopa/Levodopa 1 tab PO QID/E 09/10/17 09/29/17 [Carbidopa-Levodopa 25-100 Tab] Ferrous Sulfate, Dried [Slow 160 mg PO DAILY 09/10/17 09/29/17 Release Iron] Ibuprofen 400 mg PO Q4H PRN 09/10/17 09/29/17 Mag Hydrox/Aluminum Hyd/Simeth 20 ml PO Q4H PRN 09/10/17 09/29/17 [Maalox Advanced Suspension] Meloxicam 15 mg PO DAILY 09/10/17 09/29/17 Pseudoephedrine [Sudafed] 30 mg PO BID PRN 09/10/17 09/29/17 RisperiDONE [RisperDAL] 0.5 mg PO Q4H PRN 09/10/17 09/29/17 Triamterene/Hctz 37.5/25 Tab 0.5 tab PO DAILY 09/10/17 09/29/17 [MAXZIDE-25 eqv] Previous Rx's Medication Instructions Recorded Aspirin *EC* [Ecotrin] 81 mg PO DAILY #100 tab 06/15/17 Atorvastatin [Lipitor] 40 mg PO HS #30 tab 06/15/17 Clopidogrel [Plavix] 75 mg PO DAILY #30 tab 06/15/17 Metoprolol Tartrate [Lopressor] 25 mg PO BIDWM #60 tab 06/15/17 Nitroglycerin [Nitrostat] 0.4 mg SL Q5MIN3 PRN #25 tab 06/15/17 Allergies Allergy/AdvReac Type Severity Reaction Status Date / Time No Known Allergies Allergy Verified 09/29/17 08:57 Review of Systems All systems: reviewed and negative except as stated PFSH Patient Stated Medical History Cataracts Yes Other HEENT Myopia Myocardial Infarction Yes: during pacemaker insertion Other Cardiology Yes: hyperlipidemia Diabetes Mellitus Type 1 No Diabetes Mellitus Type 2 Yes: NON-INSULIN DEPENDENT Hx Benign Prostatic Yes Hyperplasia Other Yes: OVERACTIVE BLADDER Osteoarthritis Yes Other Musculoskeletal Yes: DEGENERATIVE JOINT DISEASE Schizophrenia Yes Clinic Medical History (Last Reviewed 05/07/17 @ 10:15 by Carmina Santiago [facility]) Mental status, decreased (Acute Medical) Renal insufficiency (Acute Medical) Dementia (Chronic Medical) Diabetes (Chronic Medical) Hyperlipidemia (Chronic Medical) Schizophrenia (Chronic Medical) Tremors of nervous system (Chronic Medical) Altered mental status (Inactive Medical) Syncope (Inactive Medical) Surgical History: 1. Right knee arthroscopy and meniscectomy: 11/02/1997. 2. Cystoscopy with uretheral dilation: 03/11/2002. 3. Colonoscopy: 07/28/2004. 4. Biopsy from right lateral tongue classified as nonspecific ulcer, 2008. 5. Dental extractions 2009 and 2015. 6. Heart catheterization with drug-eluting stent placed to LAD, 06/13/17. 7. Dual-chamber pacemaker implant for symptomatic bradycardia due to complete heart block, 06/14/17 - Social History Smoking status: Never smoker Physical Exam - Limitations Limitations: other (mild MR) - General General appearance: alert, in no apparent distress - Normal Exams: Head:: Normocephalic without trauma Chest/Respirations:: Clear all drake, with good airflow, and symmetry bilaterally Cardiovascular:: Regular rate and rhythm, without murmur or gallop, Pulses 2+ all extremities, capillary refill, <2 seconds all extremities Abdomen:: Bowel sounds positive, soft, non-tender, non-distended, no hepatosplenomegaly, masses or bruits noted Neurological:: Patient is alert, and oriented, cranial nerves, motor/sensory/ cerebellar, exams w/o gross deficits, to observation Psychiatric:: Patient exhibits, appropriate attention, emotion and affect Course Course Narrative: We have been watching his blood pressure. It dropped to 101/83. Then maryan again to 1:15 systolic. Currently it is 81/53 with an MAP of 62. 1 L normal saline is ordered as a bolus. We are still pending a urine to make sure he did not get any other mistaken medications including controlled substances. Vital Signs Temperature 98.3 F 09/29/17 08:57 Pulse Rate 78 09/29/17 08:57 Respiratory Rate 17 09/29/17 08:57 Blood Pressure 145/80 H 09/29/17 08:57 Pulse Oximetry 95 09/29/17 08:57 Temperature 98.3 F 09/29/17 08:57 Pulse Rate 61 09/29/17 11:00 Respiratory Rate 16 09/29/17 09:30 Blood Pressure 106/64 09/29/17 11:00 Pulse Oximetry 94 09/29/17 11:00 Medical Decision Making - [facility] Narrative Medical decision making narrative: Accidental medication dosage with wrong patient's medications. He has significant hypotension, even after 1 L of normal saline current blood pressure is 94/68 with a map of 76. He is lightheaded if we raise the head of his bed and he feels like his brain is "fuzzy". Review of labs shows elevated potassium of 5.5 with other labs essentially normal aside from mild anemia. Hospitalist will admit to ICU and follow and is aware of aberrant potassium. - Differential Diagnosis accidental overdose, hypotension - Medical Records Medical records reviewed: Yes: I reviewed the patient's medical records. - Lab Data Lab results reviewed: Yes: I reviewed the patient's lab results. Result diagrams: 09/29/17 10:59 09/29/17 10:59 Lab Results 09/29/17 09/29/17 Range/Units 10:59 10:59 WBC 3.3 L (4.5-11.0) T/MM3 RBC 3.85 L (4.50-5.90) M/MM3 Hgb 10.9 L (13.5-17.5) GM/DL Hct 34.4 L (41-53) % MCV 89.4 (80-100) UM3 MCH 28.3 (26-34) UUG MCHC 31.7 (31-37) GM/DL RDW Std Deviation 40.4 (36.9-50.2) FL Plt Count 170 (130-400) T/MM3 MPV 9.9 (9.4-12.4) UM3 Immature Gran % (Auto) 0.3 (0.0-0.5) % Neut % (Auto) 47.8 (33-66) % Lymph % (Auto) 33.2 (23-45) % Gosper % (Auto) 14.8 H (0-9.0) % Eos % (Auto) 3.3 (0-4) % Baso % (Auto) 0.6 (0-2) % Neut # (Auto) 1.6 L (1.8-7.7) T/MM3 Lymph # (Auto) 1.1 (1-4.8) T/MM3 Gosper # (Auto) 0.5 (0-0.8) T/MM3 Eos # (Auto) 0.1 (0-0.5) T/MM3 Baso # (Auto) 0.0 (0-0.2) T/MM3 Abs Immat Gran (auto) 0.01 (0.00-0.03) T/MM3 Turbidity < 20 (0-20) Sodium 139 (134-144) MEQ/L Potassium 5.5 H (3.6-5) MEQ/L Chloride 106 (98-107) MEQ/L Carbon Dioxide 24 (22-30) MEQ/L Anion Gap 9 (5-15) MEQ/L BUN 31.0 H (9-20) MG/DL Creatinine 0.8 (0.8-1.5) MG/DL GFR Calculation 96 BUN/Creatinine Ratio 39 H (6-26) RATIO Glucose 126 H (75-110) MG/DL Calculated Osmolality 277 (261-280) MOSM/KG Calcium 8.9 (8.4-10.2) MG/DL Total Bilirubin 0.20 (0.20-1.30) MG/DL Icterus Index < 2 (0-7) AST 19 (17-59) U/L ALT 21 (21-72) U/L Alkaline Phosphatase 86 (38-126) U/L Total Protein 7.1 (6.3-8.2) G/DL Albumin 3.7 (3.5-5.0) G/DL Globulin 3.4 (2.4-3.6) G/DL Albumin/Globulin Ratio 1.1 (1.1-2.2) RATIO Specimen Hemolysis < 15 (0-25) Disposition Clinical Impression: Mental status, decreased Disposition: 02 To [facility] Acute Care Condition: Stable Prescriptions: No Action Vitamin B Complex 1 cap PO DAILY #0 Docusate Sodium [Dok] 100 mg PO BID #0 Gabapentin 300 mg PO BIDBL #0 Loxapine Succinate [Loxapine] 5 mg PO BID #0 diphenhydrAMINE HCl [Diphenhydramine HCl] 25 mg PO Q4H PRN #0 PRN Reason: ALLERY SYMPTOMS Guaifenesin/Dextromethorphan [Tussin Dm Liquid] 10 ml PO Q4H PRN #0 PRN Reason: COUGH Gabapentin 600 mg PO HS Atorvastatin [Lipitor] 40 mg PO HS #30 tab Clopidogrel [Plavix] 75 mg PO DAILY #30 tab Aspirin *EC* [Ecotrin] 81 mg PO DAILY #100 tab Nitroglycerin [Nitrostat] 0.4 mg SL Q5MIN3 PRN #25 tab PRN Reason: Angina RisperiDONE [RisperDAL] 0.5 mg PO Q4H PRN PRN Reason: Anxiety/Agitation Acetaminophen [Acetaminophen Extra Strength] 1,000 mg PO Q4H PRN PRN Reason: Pain Calcium Carbonate [Calcium] 1,000 mg PO Q4H PRN PRN Reason: Heartburn Triamterene/Hctz 37.5/25 Tab [MAXZIDE-25 eqv] 0.5 tab PO DAILY Ferrous Sulfate, Dried [Slow Release Iron] 160 mg PO DAILY Acetaminophen [Acetaminophen Extra Strength] 1,000 mg PO TID Carbidopa/Levodopa [Carbidopa-Levodopa 25-100 Tab] 1 tab PO QID/E Paliperidone [Invega] 9 mg PO 1800 #0 Levothyroxine Sodium 50 mcg PO ACB #0 Metformin HCl 500 mg PO DAILY #0 Multivitamin [Tab-A-Claire] 1 tab PO DAILY #0 Loperamide [Imodium] 2 mg PO QID PRN #0 PRN Reason: DIARRHEA Sennosides/Docusate Sodium [Sm Senna-S Tablet] 2 tab PO BID PRN #0 PRN Reason: CONSTIPATION Magnesium Hydroxide [Milk of Magnesia] 30 ml PO DAILY PRN #0 PRN Reason: CONSTIPATION Metoprolol Tartrate [Lopressor] 25 mg PO BIDWM #60 tab Mag Hydrox/Aluminum Hyd/Simeth [Maalox Advanced Suspension] 20 ml PO Q4H PRN PRN Reason: Heartburn Ibuprofen 400 mg PO Q4H PRN PRN Reason: Pain Meloxicam 15 mg PO DAILY Pseudoephedrine [Sudafed] 30 mg PO BID PRN PRN Reason: Nasal Congestion Referrals: Rose Dinero MD [Family Provider] - Time of Disposition: 11:55 - Seen By: physician
[2017-09-29] MEDS ORDERED: NS 1,000 ML IV ONE (10:17)
[2017-09-29] MEDS: SALINE FLUSH 10ml SYRINGE IVF PRN ×2 (10:24→16:33)
--- NOTE | 2017-09-29 11:56 | History & Physical Report ---
History of Present Illness Date: 09/29/17 Chief complaint: given wrong meds HPI: Patient is a 66-year-old male with baseline MR who resides at [facility]. He was brought to the ER today to be evaluated because he was given another resident's medications. He was not given his own medications this morning. A [facility] tax representative accompanies him and contributes to his history. She reports he has been his normal self. He currently complains of some dizziness, but otherwise states he feels well. She does report that on the fourth he was brought into the ER because he became unresponsive. Based on that ER report, he appeared post ictal, but no clear etiology was found for his unresponsiveness. He is scheduled to see Dr. Donis on 11/13/17. Following is a list of the wrong medications he was given: Carbamazepine 200 Verapamil 120 Valproic acid 500 Lisinopril 20 Sertraline 200 Metoprolol 100 His normal medications which were not given this morning are as follows: Vitamin D complex Triamterene/hydrochlorothiazide 37.5/25 Ferrous sulfate 160 daily Metformin 500 mg daily Meloxicam 15 mg daily Loxapine 5 mg twice a day Paliperidone (Invega) 9 mg at 1800 Gabapentin 300 mg twice a day (breakfast and lunch.) 600 mg at bedtime Docusate 100 twice a day Plavix 75 mg daily acetaminophen thousand milligrams 3 times a day Multivitamin daily Metoprolol 25 mg twice a day Levothyroxine 50 g daily Carbidopa levodopa 25/100 4 times a day Atorvastatin 40 mg daily at bedtime Aspirin 81 mg daily Patient has been hypotensive. He has been as low as 81/53. He was given a liter of fluids in the ED and at time of this dictation, his pressures up to 106/64. Because of his comorbidities and hypotension, he will be admitted as observation to the CCU. Review of Systems All systems PM: 10-point ROS was reviewed, no additional remarkable complaints except - Neurological Neurological: Present: dizziness, tremor(s) (Parkinson's) [facility] Medical History Coronary artery disease. Complete heart block, status post pacemaker. Type 2 diabetes. Hyperlipidemia. Hypothyroidism. Moderate MR. Schizophrenia - very compulsive in cleanliness. Narcolepsy. Overactive bladder. Mild BPH. Cataracts. Myopia. Degenerative joint disease. 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 Minimal sleep disordered breathing Normocytic anemia, mild. Surgical History: 1. Right knee arthroscopy and meniscectomy: 11/02/1997. 2. Cystoscopy with uretheral dilation: 03/11/2002. 3. Colonoscopy: 07/28/2004. 4. Biopsy from right lateral tongue classified as nonspecific ulcer, 2008. 5. Dental extractions 2009 and 2015. 6. Heart catheterization with drug-eluting stent placed to LAD, 06/13/17. 7. Dual-chamber pacemaker implant for symptomatic bradycardia due to complete heart block, 06/14/17 Family History: Patient was adopted. Biological family history unknown. - Social History Smoking status: Never smoker Substance use type: does not use Alcohol intake frequency: does not drink Housing: other (correction-[facility]) Social history: PCP-Dr. Dinero Chief Enterprise Architect-Dr. Wilson Medications Home Medications Medication Instructions Recorded Confirmed Type Vitamin B Complex 1 cap PO DAILY #0 03/09/12 09/29/17 History Docusate Sodium [Dok] 100 mg PO BID #0 10/31/16 09/29/17 History Gabapentin 300 mg PO BIDBL #0 10/31/16 09/29/17 History Guaifenesin/Dextromethorphan 10 ml PO Q4H PRN #0 10/31/16 09/29/17 History [Tussin Dm Liquid] Levothyroxine Sodium 50 mcg PO ACB #0 10/31/16 09/29/17 History Loperamide [Imodium] 2 mg PO QID PRN #0 10/31/16 09/29/17 History Loxapine Succinate [Loxapine] 5 mg PO BID #0 10/31/16 09/29/17 History Magnesium Hydroxide [Milk of 30 ml PO DAILY PRN #0 10/31/16 09/29/17 History Magnesia] Metformin HCl 500 mg PO DAILY #0 10/31/16 09/29/17 History Multivitamin [Tab-A-Claire] 1 tab PO DAILY #0 10/31/16 09/29/17 History Paliperidone [Invega] 9 mg PO 1800 #0 10/31/16 09/29/17 History Sennosides/Docusate Sodium [Sm 2 tab PO BID PRN #0 10/31/16 09/29/17 History Senna-S Tablet] diphenhydrAMINE HCl 25 mg PO Q4H PRN #0 10/31/16 09/29/17 History [Diphenhydramine HCl] Gabapentin 600 mg PO HS 06/13/17 09/29/17 History Acetaminophen [Acetaminophen Extra 1,000 mg PO Q4H PRN 09/10/17 09/29/17 History Strength] Acetaminophen [Acetaminophen Extra 1,000 mg PO TID 09/10/17 09/29/17 History Strength] Calcium Carbonate [Calcium] 1,000 mg PO Q4H PRN 09/10/17 09/29/17 History Carbidopa/Levodopa 1 tab PO QID/E 09/10/17 09/29/17 History [Carbidopa-Levodopa 25-100 Tab] Ferrous Sulfate, Dried [Slow 160 mg PO DAILY 09/10/17 09/29/17 History Release Iron] Ibuprofen 400 mg PO Q4H PRN 09/10/17 09/29/17 History Mag Hydrox/Aluminum Hyd/Simeth 20 ml PO Q4H PRN 09/10/17 09/29/17 History [Maalox Advanced Suspension] Meloxicam 15 mg PO DAILY 09/10/17 09/29/17 History Pseudoephedrine [Sudafed] 30 mg PO BID PRN 09/10/17 09/29/17 History RisperiDONE [RisperDAL] 0.5 mg PO Q4H PRN 09/10/17 09/29/17 History Triamterene/Hctz 37.5/25 Tab 0.5 tab PO DAILY 09/10/17 09/29/17 History [MAXZIDE-25 eqv] Allergies Allergy/AdvReac Type Severity Reaction Status Date / Time No Known Allergies Allergy Verified 09/29/17 08:57 Exam Vital Signs: Temperature 98.3 F 09/29/17 08:57 Pulse Rate 61 09/29/17 11:00 Respiratory Rate 16 09/29/17 09:30 Blood Pressure 106/64 09/29/17 11:00 Pulse Oximetry 94 09/29/17 11:00 Height/Weight/BMI: Height 1.63 m Weight 63.3 kg - Constitutional Present: no acute distress, well nourished, well developed - Routine HEENT Exam Head: Present: normocephalic, atraumatic Eye: Present: EOMI, PERRL ENT: Present: mucous membranes moist, oropharynx clear. Absent: dentition normal (missing teeth) Comments: Lips are dry. bilateral ptosis of the eyelids - Routine Neck Exam Present: supple. Absent: lymphadenopathy, thyromegaly - Routine Respiratory Exam Present: CTA bilaterally. Absent: wheezes - Routine Cardiovascular Exam Present: RRR. Absent: murmur Comments: Pacemaker left upper chest - Routine Abdominal Exam Present: soft, normoactive bowel sounds, non distended. Absent: tenderness - Routine Extremities Exam Present: no edema, normal capillary refill - Routine Skin Exam Present: dry, warm - Routine Neurological Exam Present: alert, oriented X3, CN II-XII intact, moving all extremities, normal tone, tremors - Routine Psychiatric Exam Present: normal affect, cooperative Results - Labs CBC & Chem 7: 09/29/17 10:59 09/29/17 16:53 Labs: Laboratory Tests 09/29/17 10:59 AST 19 ALT 21 Alkaline Phosphatase 86 Total Protein 7.1 Albumin 3.7 Globulin 3.4 Albumin/Globulin Ratio 1.1 - ECG Data Tracing #1 Atrial paced normal rhythm at 64 bpm Assessment and Plan (1) Hypotension due to medication Current visit: Yes Status: Acute (2) Medication administered in error Current visit: Yes Status: Acute Assessment and Plan: Assessment Hypotension secondary to medication administered in error Hyperkalemia-POA (his baseline averages around 5) Coronary artery disease. Complete heart block, status post pacemaker. Type 2 diabetes. Hyperlipidemia. Hypothyroidism. Moderate MR. Schizophrenia - very compulsive in cleanliness. Narcolepsy. Overactive bladder. Mild BPH. Cataracts. Myopia. Degenerative joint disease. 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 Minimal sleep disordered breathing Normocytic anemia, mild. Plan Admit for observation to CCU (Dr. Erickson, attending) for close monitoring of his hypotension. Will resume his metformin, meloxicam, Tylenol, docusate, Plavix, levothyroxine, atorvastatin, and aspirin. Will hold his triamterene/hydrochlorothiazide, metoprolol, gabapentin, loxapine , and Invega His hemoglobin is lower than his previous average, but suspect this is dilutional. Will follow. Monitor potassium level. Repeat again at 1700. Monitor Accu-Cheks. Sliding scale insulin ordered. SCDs for DVT prophylaxis. If he is not dismissed tomorrow, will start Lovenox. Patient wishes to be a full code. Care to return to Dr. Dinero on discharge. - Physician Narriative Physician: Erika Erickson MD Narriative: 09/29/17 17:49 Inadvertent medication exposure when patient received multiple medications intended for another patient this morning at home facility as outlined above. [place] reports that he felt funny this morning and a little bit dizzy but he does not describe palpitations or chest pain, denies dyspnea or nausea and was in good spirits when evaluated in the emergency room earlier today. Caregiver at bedside indicated he was looking forward to a day away from his roommates. 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 Antihypertensive effect of medications he received this morning may be sustained over 24 hour time-anticipate watching in the ICU overnight in the event additional fluids become necessary. Hold diuretics. Resume home dose metoprolol in a.m. if blood pressure/heart rate stable due to known coronary artery disease. Hold Invega due to psych meds given inadvertently. When necessary Risperdal will be made available should it become needed. Repeat labs at 5 with minor improvement in potassium to 5.3. Reassess a.m. Urine drug screen negative. Hospital Course Summary Disclaimer: The visit summary below is not to be considered part of the above Progress Note. Hospital Course: Assessment Hypotension secondary to medication administered in error Hyperkalemia-POA (his baseline averages around 5) Coronary artery disease. Complete heart block, status post pacemaker. Type 2 diabetes. Hyperlipidemia. Hypothyroidism. Moderate MR. Schizophrenia - very compulsive in cleanliness. Narcolepsy. Overactive bladder. Mild BPH. Cataracts. Myopia. Degenerative joint disease. 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 Minimal sleep disordered breathing Normocytic anemia, mild. 09/29/17 -hospital admission to CCU for observation Admit for observation to CCU (Dr. Erickson, attending) for close monitoring of his hypotension. Will resume his metformin, meloxicam, Tylenol, docusate, Plavix, levothyroxine, atorvastatin, and aspirin. Will hold his triamterene/hydrochlorothiazide, metoprolol, gabapentin, loxapine , and Invega His hemoglobin is lower than his previous average, but suspect this is dilutional. Will follow. Monitor potassium level. Repeat again at 1700. Monitor Accu-Cheks. Sliding scale insulin ordered. SCDs for DVT prophylaxis. If he is not dismissed tomorrow, will start Lovenox. Patient wishes to be a full code. Care to return to Dr. Dinero on discharge.
[2017-09-29] MEDS ORDERED: CALCIUM CARBONATE Chewable 500mg TABLET PO PRN (12:42)
[2017-09-29] MEDS ORDERED: MAG-AL + SIM ORAL LIQUID 30ml PO PRN (12:42)
[2017-09-29] MEDS ORDERED: SENNA + DOCUSATE TABLET PO PRN (12:42)
[2017-09-29] MEDS ORDERED: INSULIN ASPART 100unit/ml INJECTION SQ PRN (12:42)
[2017-09-29] MEDS ORDERED: NITROGLYCERIN 0.4 MG SUBLINGUAL TABLET SL PRN (12:42)
[2017-09-29] MEDS ORDERED: LOPERAMIDE 2 MG CAPSULE PO PRN (12:42)
[2017-09-29 12:58] VITALS: BMI 24.0
[2017-09-29] MEDS: CLOPIDOGREL 75 MG TABLET PO SCH (14:59)
[2017-09-29] MEDS: ACETAMINOPHEN 500 MG TABLET PO SCH ×2 (15:00→20:25)
[2017-09-29] MEDS: LEVOTHYROXINE 50 MCG TABLET PO SCH (15:00)
[2017-09-29] MEDS ORDERED: RisperiDONE 0.5 MG TABLET PO PRN (17:54)
[2017-09-29] MEDS ORDERED: NS 1,000 ML IV SCH (18:00)
[2017-09-29] MEDS: DOCUSATE SODIUM 100 MG CAPSULE PO SCH (20:26)
[2017-09-29] MEDS ORDERED: ATORVASTATIN 40 MG TABLET PO SCH (21:00)
[2017-09-30] MEDS: LEVOTHYROXINE 50 MCG TABLET PO SCH (06:41)
[2017-09-30] MEDS: ACETAMINOPHEN 500 MG TABLET PO SCH (08:29)
[2017-09-30] MEDS: CLOPIDOGREL 75 MG TABLET PO SCH (08:30)
[2017-09-30] MEDS: DOCUSATE SODIUM 100 MG CAPSULE PO SCH (08:31)
[2017-09-30 08:37] VITALS: TEMP 98.2
[2017-09-30] MEDS ORDERED: METFORMIN 500 MG TABLET PO SCH (09:00)
[2017-09-30] MEDS ORDERED: ASPIRIN *EC* 81 MG TABLET PO SCH (09:00)
[2017-09-30] MEDS ORDERED: VITAMIN B COMPLEX PO SCH (09:00)
[2017-09-30] MEDS ORDERED: MELOXICAM 15 MG TABLET PO SCH (09:00)
[2017-09-30] MEDS ORDERED: FERROUS SULFATE 160 MG PO SCH (09:00)
[2017-09-30] MEDS ORDERED: MULTI-VITAMIN PLAIN TABLET PO SCH (09:00)
[2017-09-30] MEDS ORDERED: TRIAMTERENE/HCTZ 37.5 MG-25 MG TABLET PO SCH (10:00)
--- NOTE | 2017-09-30 11:31 | Discharge Summary ---
Discharge Information Date of admission: 09/29/17 12:05 Anticipated date of discharge: 09/30/17 Attending Physician: Erika Erickson MD Primary care physician: Rose Dinero MD - Discharge Diagnosis (1) Hypotension due to medication Status: Acute (2) Medication administered in error Status: Acute Hypotension secondary to medication administered in error; resolved Hyperkalemia-POA, resolved Coronary artery disease. Complete heart block, status post pacemaker. Type 2 diabetes. Hyperlipidemia. Hypothyroidism. Moderate MR. Schizophrenia - very compulsive in cleanliness. Degenerative joint disease. Normocytic anemia, mild. - Laboratory Labs: Admission labs notable only for potassium 5.3, hemoglobin 10.9; liver enzymes normal. 09/30/17 04:28 09/30/17 04:28 Urine drug screen negative on admission History of Present Illness HPI: Patient is a 66-year-old male with baseline MR who resides at [facility]. He was brought to the ER today to be evaluated because he was given another resident's medications. He was not given his own medications this morning. A [facility] brewery representative accompanies him and contributes to his history. She reports he has been his normal self. He currently complains of some dizziness, but otherwise states he feels well. She does report that on the fourth he was brought into the ER because he became unresponsive. Based on that ER report, he appeared post ictal, but no clear etiology was found for his unresponsiveness. He is scheduled to see Dr. Donis on 11/13/17. Following is a list of the wrong medications he was given: Carbamazepine 200 Verapamil 120 Valproic acid 500 Lisinopril 20 Sertraline 200 Metoprolol 100 His normal medications which were not given this morning are as follows: Vitamin D complex Triamterene/hydrochlorothiazide 37.5/25 Ferrous sulfate 160 daily Metformin 500 mg daily Meloxicam 15 mg daily Loxapine 5 mg twice a day Paliperidone (Invega) 9 mg at 1800 Gabapentin 300 mg twice a day (breakfast and lunch.) 600 mg at bedtime Docusate 100 twice a day Plavix 75 mg daily acetaminophen thousand milligrams 3 times a day Multivitamin daily Metoprolol 25 mg twice a day Levothyroxine 50 g daily Carbidopa levodopa 25/100 4 times a day Atorvastatin 40 mg daily at bedtime Aspirin 81 mg daily Patient has been hypotensive. He has been as low as 81/53. He was given a liter of fluids in the ED and at time of this dictation, his pressures up to 106/64. Because of his comorbidities and hypotension, he will be admitted as observation to the CCU. Hospital Course This is a general summary of the patient's hospital course. For more details refer to the complete medical record. Hospital course: Assessment Hypotension secondary to medication administered in error; resolved Hyperkalemia-POA; resolved Coronary artery disease. Complete heart block, status post pacemaker. Type 2 diabetes. Hyperlipidemia. Hypothyroidism. Moderate MR. Schizophrenia - very compulsive in cleanliness. Narcolepsy. Normocytic anemia, mild. Hospital course Admit for observation to CCU (Dr. Erickson, attending) for close monitoring of his hypotension. Mac was admitted to the ICU to closely monitor blood pressure following inadvertent exposure to multiple medications intended for another patient. A number of his home medications were held initially including triamterene/ hydrochlorothiazide, metoprolol, gabapentin, loxapine, and Invega. Medications not felt to be impacted by accidental drug exposure were continued. On admission Mac describe only feeling funny and a little bit dizzy. Blood pressure stabilized overnight with IV fluids and potassium normalized overnight. On the morning of 09/30 he denied any symptoms and specifically denied lightheadedness. Blood pressures on the morning of 09/30 were typically about 130/60. He reported that he slept well and had no dyspnea or chest pain. He was eating 100% of meals. Telemetry was consistently sinus rhythm. Examination revealed mildly dysarthric speech and tremor of the upper extremities (baseline). Respirations are nonlabored with good airflow and clear breath sounds. Cardiac rhythm is regular. Mac is in good spirits this morning. He is felt stable for return to [facility] on usual medications without change. All home medications were resumed and return to home facility coordinated. Discharge Plan - Med Rec/Dispo Referrals/Follow Up: Rose Dinero MD [Family Provider] - Prescriptions: Continue Vitamin B Complex 1 cap PO DAILY #0 Docusate Sodium [Dok] 100 mg PO BID #0 Gabapentin 300 mg PO BIDBL #0 Loxapine Succinate [Loxapine] 5 mg PO BID #0 diphenhydrAMINE HCl [Diphenhydramine HCl] 25 mg PO Q4H PRN #0 PRN Reason: ALLERY SYMPTOMS Guaifenesin/Dextromethorphan [Tussin Dm Liquid] 10 ml PO Q4H PRN #0 PRN Reason: COUGH Gabapentin 600 mg PO HS Atorvastatin [Lipitor] 40 mg PO HS #30 tab Clopidogrel [Plavix] 75 mg PO DAILY #30 tab Aspirin *EC* [Ecotrin] 81 mg PO DAILY #100 tab Nitroglycerin [Nitrostat] 0.4 mg SL Q5MIN3 PRN #25 tab PRN Reason: Angina RisperiDONE [RisperDAL] 0.5 mg PO Q4H PRN PRN Reason: Anxiety/Agitation Acetaminophen [Acetaminophen Extra Strength] 1,000 mg PO Q4H PRN PRN Reason: Pain Calcium Carbonate [Calcium] 1,000 mg PO Q4H PRN PRN Reason: Heartburn Triamterene/Hctz 37.5/25 Tab [MAXZIDE-25 eqv] 0.5 tab PO DAILY Ferrous Sulfate, Dried [Slow Release Iron] 160 mg PO DAILY Acetaminophen [Acetaminophen Extra Strength] 1,000 mg PO TID Carbidopa/Levodopa [Carbidopa-Levodopa 25-100 Tab] 1 tab PO QID/E Paliperidone [Invega] 9 mg PO 1800 #0 Levothyroxine Sodium 50 mcg PO ACB #0 Metformin HCl 500 mg PO DAILY #0 Multivitamin [Tab-A-Claire] 1 tab PO DAILY #0 Loperamide [Imodium] 2 mg PO QID PRN #0 PRN Reason: DIARRHEA Sennosides/Docusate Sodium [Sm Senna-S Tablet] 2 tab PO BID PRN #0 PRN Reason: CONSTIPATION Magnesium Hydroxide [Milk of Magnesia] 30 ml PO DAILY PRN #0 PRN Reason: CONSTIPATION Metoprolol Tartrate [Lopressor] 25 mg PO BIDWM #60 tab Mag Hydrox/Aluminum Hyd/Simeth [Maalox Advanced Suspension] 20 ml PO Q4H PRN PRN Reason: Heartburn Ibuprofen 400 mg PO Q4H PRN PRN Reason: Pain Meloxicam 15 mg PO DAILY Pseudoephedrine [Sudafed] 30 mg PO BID PRN PRN Reason: Nasal Congestion - Disposition 01 Discharged Home, Self-Care - Dismissal Complete Discharge Instructions are:: Complete
[2017-09-30] MEDS ORDERED: GABAPENTIN 300 MG CAPSULE PO SCH ×2 (12:00→21:00)
[2017-09-30 13:48] VITALS: BP 155/71; PULSE 65; RESP 32; O2SAT 93
[2017-09-30] MEDS ORDERED: PALIPERIDONE 9 MG PO SCH (18:00)
[2017-09-30] MEDS ORDERED: LOXAPINE SUCCINATE 5 MG PO SCH (21:00)
== END 2017-09-30 12:55 | disposition home or self-care (01) ==
LOC: ED 08:50 → CCU 08:50
PROVIDERS: ADMIT Internal Medicine; ATTEND Internal Medicine